=== PATIENT | male | born 1955 | race Caucasian/White ===

== ENCOUNTER 2017-01-18 06:23 | Day surgery (SDC) | payer OTHER ==
[~2017-01-18 06:23] MED LIST: ALPRAZolam 0.25 MG TAB PO PRN; ALPRAZolam 0.5 MG TAB PO PRN; ASPIRIN 325 MG TAB PO STA; ATORVASTATIN 80 MG TAB PO STA; NITROGLYCERIN SL TABS 0.4 MG TAB SUBLINGUAL PRN; SODIUM CHLORIDE 0.9% 1,000 ML in EMPTY BAG 1 BAG IV ONE
[2017-01-18 07:11] LABS: Glucose,Whole Blood 77 mg/dL (75-99)
[2017-01-18] MEDS ORDERED: fentaNYL (PF) 50 MCG/ML 2 ML AMP IV ONE (07:30)
[2017-01-18] MEDS ORDERED: LIDOCAINE 2% INJ 20 MG/ML SQ ONE (07:35)
[2017-01-18] MEDS ORDERED: VERAPAMIL SYRINGE (5 MG/10 ML) INTRAARTER ONE (07:38)
[2017-01-18] MEDS ORDERED: HEPARIN SODIUM 1,000 UNIT/ML VIAL IV ONE (07:39)
[2017-01-18] MEDS ORDERED: BIVALIRUDIN BOLUS 250 MG/50 ML IV ONE (08:09)
[2017-01-18] MEDS ORDERED: BIVALIRUDIN 250 MG in SODIUM CHLORIDE 0.9% 35 ML IV ONE (08:09)
[2017-01-18] MEDS ORDERED: CLOPIDOGREL 75 MG TAB PO ONE (08:12)
[2017-01-18] MEDS: NITROGLYCERIN 1000MCG/10ML SYRINGE INTRACORON ONE ×2 (08:24→08:53)
[2017-01-18] MEDS ORDERED: BIVALIRUDIN 250 MG in SODIUM CHLORIDE 0.9% 50 ML IV ONE (08:45)
[2017-01-18] MEDS ORDERED: IOHEXOL 350 MG/ML 125ML BOTTLE INJ ONE (09:07)
[2017-01-18] MEDS ORDERED: MAG HYDROX/AL HYDROX/SIMETH 30 ML CUP PO PRN (09:26)
[2017-01-18] MEDS ORDERED: ZOLPIDEM 5 MG TAB PO PRN (09:26)
[2017-01-18] MEDS ORDERED: ATROPINE SULFATE 0.1 MG/ML 10ML SYRINGE IV PRN (09:26)
[2017-01-18] MEDS ORDERED: NITROGLYCERIN SL TABS 0.4 MG TAB SUBLINGUAL PRN (09:26)
[2017-01-18] MEDS ORDERED: RX INFO: IV CONTRAST WAS GIVEN 1 EACH MISC MISCELLANE PRN (09:26)
[2017-01-18] MEDS ORDERED: LORazepam 1 MG TAB PO PRN (09:28)
[2017-01-18] MEDS ORDERED: MECLIZINE 25 MG TAB PO PRN (09:28)
[2017-01-18] MEDS ORDERED: SODIUM CHLORIDE 0.9% 1,000 ML IV SCH (09:30)
[2017-01-18 12:11] LABS: Glucose,Whole Blood 117 mg/dL (75-99)
--- NOTE | 2017-01-18 12:14 | CC ---
DATE OF SERVICE: Mr. Paez is a 61-year-old male with a known history of coronary artery disease, status post percutaneous revascularization and coronary artery bypass grafting, who presented with symptoms of chest discomfort reminding him of the symptoms he had prior to his angioplasty. In view of that, recommendation made regarding angioplasty and stenting. The procedure as well as risks and complications were discussed with the patient, who is in full understanding and agreement. PROCEDURE: Patient was brought to the candlemaking laborer in fasting semi-sedated state after receiving fentanyl and Benadryl and reaching moderate conscious sedation state. Using Xylocaine anesthesia and Seldinger technique, a 6 Mauritian was introduced in the left radial artery. Selective right and left coronary angiography was performed using 5 Mauritian 4 bend right and left Gerard catheter. Multiple images of the coronary arteries including hemiaxial views were obtained. Following that, a 5 Mauritian right Gerard catheter was used to cannulate the saphenous vein graft to the right coronary artery. Images of the graft were obtained. Following that, an MARY LOU catheter was used to cannulate the FERGUSON and images of the grafts were obtained. Following that, 6 Mauritian tight pigtail catheter was introduced into the system and an ARMENIAN view of the ascending aorta was performed. Following that, catheter was removed. Images were reviewed. Of note, the patient received 5000 units of intravenous heparin as well as intra-arterial verapamil. FINDINGS: FLUOROSCOPY: There is significant calcification involving all of the coronary arteries. LEFT MAIN: This is a large-size vessel bifurcating into left circumflex, left anterior descending artery. Left main coronary artery has a 70% plaque distally. LEFT ANTERIOR DESCENDING ARTERY: This vessel is totally occluded proximally at the take off of the first septal waist cutter. There is no significant antegrade flow. LEFT CIRCUMFLEX: This is a nondominant vessel, large caliber, giving rise to 2 obtuse marginal branches. The first obtuse marginal branch is larger in caliber, has a proximal long faviola of stenosis up to 99%. Beyond it, after that, the left circumflex gives rise to a second small obtuse marginal branch that has diffuse intimal disease with area of stenosis up to 60% to 70%. RIGHT CORONARY ARTERY: This is a large-size vessel dominant. The right coronary artery in mid segment has an area of 70% stenosis. Distally there is competitive flow in the PLV with minimal flow in the PDA. The prior stented segment in the distal right coronary artery is patent with 30% to 40% stenosis. SAPHENOUS VEIN GRAFT TO THE DISTAL RIGHT CORONARY ARTERY: This graft is patent. The proximal and distal anastomotic sites are patent. There is flow into the PDA and into the PLV. FERGUSON TO THE LAD: The distal anastomotic site is patent. There is flow into the LAD and the diagonal branch brisk without any evidence of high-grade stenosis. There is intimal disease in the LAD. AORTOGRAM: Aortogram was performed in the ARMENIAN view and revealed normal size ascending aorta with normal appearance of tricuspid aortic valve and no significant aortic regurgitation, one saphenous vein graft was noted. CONCLUSION: 1. Severe triple vessel coronary artery disease. 2. Patent left internal mammary artery to left anterior descending artery and patent saphenous vein graft to the right coronary artery. 3. Occluded saphenous vein graft to the obtuse marginal branch. RECOMMENDATION: In view of the findings and symptoms, I recommend proceeding with angioplasty and stenting of the left main and the first obtuse marginal branch. The procedure as well as risks and complications were discussed with the patient, who is in full understanding and agreement. YANY
--- NOTE | 2017-01-18 12:18 | PTCA ---
DATE OF SERVICE: Mr. Paez is a 61-year-old male with a history of coronary artery disease, status post coronary artery bypass grafting who has been complaining of symptoms of chest discomfort, underwent cardiac catheterization, was found to have critical stenosis involving the first obtuse marginal branch and the distal left main. In view of that, recommendation made regarding angioplasty and stenting. The procedures, risks and complications were discussed with the patient who is in full understanding and agreement. PROCEDURE: Attempted cannulating the left main using a 6 Equatorial Guinean FR4 guiding catheter as well a 6 Equatorial Guinean EBU 3.75 were unsuccessful. At that point, a 6 Equatorial [place] XB 3.5 guiding catheter introduced into the system. After cannulating the left main, 0.014 balanced medium weight J-wire was advanced across the lesion, positioned distally, then a 1.5 x 12 mm trek balloon was advanced and 2 inflations at 10 atmospheres were done. Following that, the balloon was removed. Attempt to advance a 2.25 x 23 mm Xience Alpine stent were unsuccessful. That stent was removed and a 2.25 x 12 mm trek balloon was advanced and inflation in the lesion was done at maximum of 12 atmospheres. After removing the balloon, there was inability to advance the stent and after removing the stent, a 2.5 x 12 mm trek balloon was advanced and one inflation at the 12 atmospheres was done. Following that, a guideliner catheter was introduced and with the help of the guideliner, the 2.25 x 23 mm Xience Alpine stent was deployed, post-dilated at 16 atmospheres. Following that, the balloon was removed, and a 2.25 x 12 mm Xience Alpine stent was deployed distal to the first one, was dilated at 12 atmospheres. Following that, an inflation in the overlapped segment at 16 atmospheres was done. Following that, the balloon was removed and a 3.5 x 12 mm Xience Alpine stent was deployed in the distal left main and postdilated at 16 atmospheres. After the last inflation, after appropriate wait, the balloon and guidewire were withdrawn back in the guiding catheter. Images were obtained and repeated. Those images revealed stable, successful stenting. At that point, the guiding catheter, the balloon and the guidewire were removed. The sheath was removed. Hemostasis was obtained with deployment of a TR band. There was no immediate complication. Patient was returned to his room in stable condition. Of note, patient received Angiomax per protocol as well as oral loading dose of clopidogrel. He had no chest discomfort or significant EKG changes with the inflations. The duration of the procedure is 1 hour and 37 minutes. RESULTS: 1. Successful stenting of the first obtuse marginal branch with reduction in stenosis from 99% to 0%. 2. Successful stenting of the distal left main with reduction in stenosis from 70% to 0%. RECOMMENDATION: Patient will be continued on aspirin, Plavix, beta mindy, Chris inhibitor and statin. The importance of dual antiplatelet treatment was discussed with the patient and his family who are in full understanding and agreement. YANY
--- NOTE | 2017-01-18 12:21 | LTR ---
January 18, 2017 RE: JeannineEpifanio Dear Dr. Echeverria; I had the pleasure to perform cardiac catheterization on Mr. Paez at [facility] on January 18, 2017 and a full copy of the procedure note will be forwarded to you. In brief, he was found to have patent FERGUSON to LAD and patent saphenous vein graft to the right coronary artery with occluded saphenous vein graft to the obtuse marginal branch. Underwent successful stenting of that vessel as well as stenting of the distal left main. I am hopeful that this procedure will stabilize his status. Thank you again for allowing me to participate in this patient's care. Please feel to call for any questions. Sincerely yours, NELL EID MD
[2017-01-18 13:39] VITALS: RESP 18; BMI 40.6
[2017-01-18] MEDS: HYDROcodone/APAP 10-325MG 1 EACH TAB PO PRN ×2 (15:09→21:45)
[2017-01-18 16:44] LABS: Glucose,Whole Blood 261 mg/dL (75-99)
[2017-01-18] MEDS ORDERED: INSULIN LISPRO (humaLOG) 300 UNIT/3 ML VIAL SQ ONE (17:57)
[2017-01-18] MEDS: GABAPENTIN 300 MG CAP PO SCH ×2 (18:00→22:29)
[2017-01-18 20:25] LABS: Glucose,Whole Blood 236 mg/dL (75-99)
[2017-01-18] MEDS ORDERED: INSULIN GLARGINE 100 UNIT/ML 10 ML VIAL SQ SCH (21:00)
[2017-01-18] MEDS: METOPROLOL TARTRATE 25 MG TAB PO SCH (21:45)
[2017-01-19 05:59] LABS: Glucose,Whole Blood 108 mg/dL (75-99)
[2017-01-19 06:35] LABS: Anion Gap 8 mmol/L; Blood Urea Nitrogen 11 mg/dL (9-20); Calcium 8.7 mg/dL (8.4-10.2); Carbon Dioxide 27 mmol/L (22-30); Chloride 106 mmol/L (98-107); Glucose 105 mg/dL (74-99); Non-African American GFR(MDRD) >60 (>60 ml/min/1.73 sqM); Sodium 141 mmol/L (137-145)
[2017-01-19] MEDS ORDERED: INSULIN LISPRO (humaLOG) 300 UNIT/3 ML VIAL SQ SCH ×2 (07:30→12:30)
[2017-01-19 08:02] VITALS: BP 143/70; PULSE 68; TEMP 97.2
[2017-01-19] MEDS: GABAPENTIN 300 MG CAP PO SCH (08:12)
[2017-01-19] MEDS: METOPROLOL TARTRATE 25 MG TAB PO SCH (08:13)
[2017-01-19] MEDS: HYDROcodone/APAP 10-325MG 1 EACH TAB PO PRN (08:13)
[2017-01-19] MEDS ORDERED: HYDROCHLOROTHIAZIDE 12.5 MG CAP PO SCH (09:00)
[2017-01-19] MEDS ORDERED: ASPIRIN 81 MG CHEW PO SCH (09:00)
[2017-01-19] MEDS ORDERED: CLOPIDOGREL 75 MG TAB PO SCH (09:00)
[2017-01-19] MEDS ORDERED: LISINOPRIL 10 MG TAB PO SCH (09:00)
--- NOTE | 2017-01-19 09:49 | PN ---
Mr. Paez is a 62-year-old male with known history of coronary artery disease, status post coronary artery bypass grafting, history of hypertension, hyperlipidemia, diabetes mellitus, who presented with symptoms of chest discomfort, underwent cardiac catheterization, was found to have occluded saphenous vein graft to the obtuse marginal branch and significant disease in the obtuse marginal branch, underwent stenting of that vessel and stenting of the distal left main. He is doing well this morning. He is ambulating without difficulty. He feels slightly better. He denies any dizziness, palpitation. He continues on aspirin once a day, Plavix 75 mg daily, Lipitor 40 mg daily, gabapentin, hydrochlorothiazide 12.5 mg daily, insulin, lisinopril 10 mg daily, metoprolol tartrate 25 mg twice a day. PHYSICAL EXAMINATION: Blood pressure 139/60 with a heart rate in the 70s. LUNGS: Clear. HEART: Regular rate and rhythm. S1, S2, no S3, with systolic murmur at the base, ejection type, no diastolic murmur. No rub. ABDOMEN: Soft, obese, nontender. EXTREMITIES: No edema. Left radial pulse intact. EKG shows no acute changes. Lab data revealed BUN and creatinine of 11 and 0.75. Potassium 4.0. IMPRESSION: 1. Status post stenting of the obtuse marginal branch and the distal left main. 2. Status post coronary artery bypass grafting. 3. Hypertension. 4. Hyperlipidemia. 5. Diabetes mellitus. RECOMMENDATION: Patient will be discharged home today and followed as an outpatient.
[2017-01-19] MEDS ORDERED: ATORVASTATIN 40 MG TAB PO SCH (21:00)
== END 2017-01-19 08:35 | disposition home or self-care (01) ==
LOC: CATHCVL 06:23 → 6SEL 09:17 → CATHCVL 01-19 08:35
PROVIDERS: ATTEND Internal Medicine Interventional Cardiology
DX: I25.110 Atherosclerotic heart disease of native coronary artery with unstable angina pectoris (principal); I25.710 Atherosclerosis of autologous vein coronary artery bypass graft(s) with unstable angina pectoris; E78.00 Pure hypercholesterolemia, unspecified; I10 Essential (primary) hypertension; E11.9 Type 2 diabetes mellitus without complications; E78.2 Mixed hyperlipidemia; Z79.02 Long term (current) use of antithrombotics/antiplatelets; Z79.82 Long term (current) use of aspirin; Z79.4 Long term (current) use of insulin; Z79.899 Other long term (current) drug therapy; Z95.1 Presence of aortocoronary bypass graft; Z95.5 Presence of coronary angioplasty implant and graft
CPT/HCPCS: 93455; 93567; 80048; 99152; 99153 ×5; C9600; C1769; C1887 ×4; C1725 ×3; C1874; J2001; J3010; J1644; J0583; Q9967

== ENCOUNTER 2017-10-20 11:16 | Emergency (ER) | payer OTHER ==
--- NOTE | 2017-10-20 12:15 | ED ---
General Adult HPI - General Chief complaint: Extremity Injury, Lower Stated complaint: Knee pain Time Seen by Provider: 10/20/17 11:48 Source: patient, RN notes reviewed Mode of arrival: wheelchair Limitations: physical limitation - History of Present Illness Initial comments: Patient 62-year-old male who presents emergency room today with a chief complaint of injury to the right knee that occurred 2 days ago. He does admit that was severe computer chair was not has Lambert went to turn to get up and feels like his right foot did not move and he twisted the knee feeling a pop. States had some swelling in the area and increased pain. States pain located to the lateral aspect worse with both flexion and extension. States difficult time with ambulation due to pain. Denies any other complaints or symptoms. Patient denies any recent fever, chills, shortness of breath, chest pain, back pain, abdominal pain, nausea or vomiting, numbness or tingling, headaches or visual changes, or any other complaints. - Related Data Home Medications Medication Instructions Recorded Confirmed Aspirin EC [Ecotrin Low Dose] 81 mg PO DAILY 07/06/15 10/20/17 HYDROcodone/APAP 10-325MG [[place] 1 tab PO TID PRN 11/13/15 10/20/17 10-325] Gabapentin [Neurontin] 900 mg PO TID 06/18/16 10/20/17 Hydrochlorothiazide 12.5 mg PO DAILY 06/18/16 10/20/17 Insulin Aspart [NovoLOG Flexpen] See Protocol SQ ACHS 01/16/17 10/20/17 Insulin Glargine,Hum.rec.anlog 70 unit SQ HS 10/20/17 10/20/17 [Lantus Solostar] Previous Rx's Medication Instructions Recorded LORazepam [Ativan] 1 mg PO TID PRN #60 tab 07/02/15 Metoprolol Tartrate [Lopressor] 25 mg PO BID #60 tablet 07/27/15 Lisinopril [Zestril] 10 mg PO DAILY #1 tab 06/20/16 Clopidogrel [Plavix] 75 mg PO DAILY #90 tab 01/19/17 Nitroglycerin Sl Tabs [Nitrostat] 0.4 mg SUBLINGUAL Q5M PRN #25 tab 01/19/17 Allergies Allergy/AdvReac Type Severity Reaction Status Date / Time atorvastatin [From Lipitor] AdvReac SORE Verified 10/20/17 12:17 MUSCLES Review of Systems ROS Statement: Those systems with pertinent positive or pertinent negative responses have been documented in the HPI. ROS Other: All systems not noted in ROS Statement are negative. Past Medical History Past Medical History: Coronary Artery Disease (CAD), Heart Failure, Diabetes Mellitus, Hyperlipidemia, Hypertension, Myocardial Infarction (CA), Osteoarthritis (OA) Additional Past Medical History / Comment(s): syncope. anemia peripheral neuropathy, chronic vertigo, chronic anemia, spinal stenosis, herniated disc, ddd disease in the lower back/chronic back pain, retinal damage to his right eye , reactive thrombocytosis.. Last Myocardial Infarction Date:: 2014 History of Any Multi-Drug Resistant Organisms: None Reported Past Surgical History: Cholecystectomy, Coronary Bypass/CABG, Heart Catheterization With Stent Additional Past Surgical History / Comment(s): PILONDIAL CYSTS REMOVED, LASER EYE SX RT EYE,POST OP PLEURAL EFFUSIONS-THORACENTESIS. quintuple bypass , BILAT CATARACTS REMOVED Past Anesthesia/Blood Transfusion Reactions: No Reported Reaction Additional Past Anesthesia/Blood Transfusion Reaction / Comment(s): CLAUSTERPHOBIA Date of Last Stent Placement:: 2012 Past Psychological History: Depression Smoking Status: Former smoker Past Alcohol Use History: None Reported Past Drug Use History: None Reported - Past Family History Father Family Medical History: Coronary Artery Disease (CAD), Diabetes Mellitus Additional Family Medical History / Comment(s): CABG Mother Family Medical History: Coronary Artery Disease (CAD), Diabetes Mellitus Additional Family Medical History / Comment(s): CABG General Exam - General Exam Comments Initial Comments: General: The patient is awake and alert, in no distress, and does not appear acutely ill. Neck: The neck is supple, there is no tenderness or JVD. Musculoskeletal: Mild swollen to the right knee. Shows limited range of motion with both flexion and extension due to pain. Sensations are intact pulses equal bilaterally 2+. Patient does have tenderness lateral aspect worse with movement. No tenderness to the right hip, right Her ankle. Neurological: A&O x 3. CN II-XII intact, There are no obvious motor or sensory deficits. Coordination appears grossly intact. Speech is normal. Skin: Skin is warm and dry and no rashes or lesions are noted. Psychiatric: Normal mood and affect. Limitations: physical limitation Course Vital Signs 10/20/17 11:32 Temperature 98 F Pulse Rate 56 L Respiratory 16 Rate Blood Pressure 103/52 O2 Sat by Pulse 97 Oximetry Medical Decision Making - Medical Decision Making The patient's x-rays reviewed are negative for any acute fracture dislocation. Results were discussed with the patient. Patient does have moderate effusion. Given knee immobilizer here the emergency room. Does have crutches. Advised follow-up with orthopedics. Advised to continue to ice elevate the affected area. Advised return if any symptoms increase or worsen. Disposition Clinical Impression: Knee injury Disposition: HOME SELF-CARE Condition: Good Instructions: Knee Pain (ED) Additional Instructions: Please continue to ice elevate the affected area at least 4 times a day for 20 minutes at a time. Please use knee immobilizer when up and moving around with crutches with weight. Tolerated. Please follow-up with orthopedics this coming week as discussed. Please return to emergency room for any other concerns. Referrals: Lisandro Echeverria III, MD [Primary Care Provider] - 1-2 days Kane Lewis MD [STAFF PHYSICIAN] - 1-2 days Time of Disposition: 12:59
--- NOTE | 2017-10-20 12:26 | XR ---
EXAMINATION TYPE: XR knee complete RT DATE OF EXAM: 10/20/2017 COMPARISON: NONE HISTORY: Pain felt a pop in knee TECHNIQUE: Three-view right knee FINDINGS: There is narrowing of the medial compartment joint space. Minimal medial femoral condylar s purring is present. Vascular calcification is noted. Anterior superior patellar spurring is present. Small joint effusion may be present. There is an osteophyte medial metaphysis of the distal femur. IMPRESSION: 1. Possible small joint effusion. 2. Mild degenerative changes.
[2017-10-20 13:16] VITALS: BP 122/59; PULSE 66; RESP 18; TEMP 97.6
== END 2017-10-20 13:16 | disposition home or self-care (01) ==
LOC: EC 11:16
DX: S89.91XA Unspecified injury of right lower leg, initial encounter (principal); E11.42 Type 2 diabetes mellitus with diabetic polyneuropathy; I11.0 Hypertensive heart disease with heart failure; I50.9 Heart failure, unspecified; I25.10 Atherosclerotic heart disease of native coronary artery without angina pectoris; I25.2 Old myocardial infarction; Z87.891 Personal history of nicotine dependence; Z79.82 Long term (current) use of aspirin; Z79.4 Long term (current) use of insulin; Z79.899 Other long term (current) drug therapy; Z88.8 Allergy status to other drugs, medicaments and biological substances; X50.1XXA Overexertion from prolonged static or awkward postures, initial encounter; Y92.009 Unspecified place in unspecified non-institutional (private) residence as the place of occurrence of the external cause
CPT/HCPCS: 73562; 99283; L1830 ×2

== ENCOUNTER → 2018-01-12 | Outpatient (CLI) | payer OTHER ==
[2018-01-12 09:54] LABS: HCT 44.7 % (39.0-53.0); HGB 15.7 gm/dL (13.0-17.5); MCH 30.5 pg (25.0-35.0); Mean Platelet Volume 6.2; Platelet Count 252 k/uL (150-450); Poikilocytosis Slight; RBC 5.14 m/uL (4.30-5.90); RDW 13.8 % (11.5-15.5); WBC 8.7 k/uL (3.8-10.6)
[2018-01-12 10:05] LABS: Anion Gap 14 mmol/L; Blood Urea Nitrogen 17 mg/dL (9-20); Carbon Dioxide 29 mmol/L (22-30); Chloride 102 mmol/L (98-107); Potassium 4.3 mmol/L (3.5-5.1); Sodium 145 mmol/L (137-145)
== END | disposition home or self-care (01) ==
LOC: LABPAT 09:18
PROVIDERS: ATTEND Internal Medicine Interventional Cardiology
DX: Z01.812 Encounter for preprocedural laboratory examination (principal); I73.9 Peripheral vascular disease, unspecified
CPT/HCPCS: 36415; 80051; 82565; 84520; 85027

== ENCOUNTER 2018-01-16 07:17 | Day surgery (SDC) | payer OTHER ==
[2018-01-10 15:16] VITALS: BMI 42.0
[~2018-01-16 07:17] MED LIST changes: -ALPRAZolam 0.25 MG TAB PO PRN; -ALPRAZolam 0.5 MG TAB PO PRN; -ASPIRIN 325 MG TAB PO STA; -ATORVASTATIN 80 MG TAB PO STA; -NITROGLYCERIN SL TABS 0.4 MG TAB SUBLINGUAL PRN
[2018-01-16] MEDS ORDERED: ASPIRIN 81 MG ONE (07:45)
[2018-01-16] MEDS ORDERED: ALPRAZolam 0.25 MG TAB ONE (07:45)
[2018-01-16 08:10] LABS: Glucose,Whole Blood 126 mg/dL (75-99)
[2018-01-16 08:12] VITALS: RESP 16; TEMP 98
[2018-01-16] MEDS ORDERED: MIDAZOLAM 2 MG/2 ML VIAL IV ONE ×2 (08:57→08:59)
[2018-01-16] MEDS ORDERED: LIDOCAINE 2% INJ 20 MG/ML SQ ONE (08:59)
[2018-01-16] MEDS ORDERED: IOPAMIDOL-250 50ML BTL INTRAARTER ONE (09:10)
[2018-01-16] MEDS ORDERED: IOPAMIDOL-250 100ML BTL INTRAARTER ONE (09:10)
[2018-01-16] MEDS ORDERED: SODIUM CHLORIDE 0.9% 1,000 ML IV SCH (09:30)
--- NOTE | 2018-01-16 09:51 | AN ---
ANGIOGRAPHY REPORT PERIPHERAL ANGIOGRAM DATE OF SERVICE: 01/16/2018 PERFORMING PHYSICIAN: Emerson Chen MD, check writing machine operator. PROCEDURE PERFORMED: 1. An abdominal aortogram. 2. Bilateral lower extremity runoff. INDICATION: This is a pleasant 63-year-old gentleman with known coronary artery disease who was experiencing bilateral lower extremities intermittent claudication, worse on the right side. He underwent an arterial duplex study and that showed severe bilateral fem-pop disease. He was brought today to undergo a peripheral angiogram. APPROACH: Left common femoral artery. COMPLICATION: None. LEVEL OF SEDATION: Moderate with sedation length of 13 minutes. PROCEDURE DESCRIPTION: After obtaining an informed consent, the patient was brought to cardiac labor contractor. The left common femoral artery was cannulated using micropuncture technique, the micropuncture wire passed easily, then I placed a 5-Kosovan sheath in the left common femoral artery. After that, I did an abdominal aortogram and bilateral lower extremities runoff using 5-Kosovan pigtail catheter which was initially placed at the level of the renal arteries then it was advanced into above the bifurcation of the aorta into right and left common iliac arteries. The procedure was completed without any complication. SELECTIVE PERIPHERAL ANGIOGRAM: 1. The abdominal aorta appeared to be angiographically normal. 2. Common iliac arteries: The right and left common iliac arteries appear to have mild disease only. 3. Internal iliac arteries: The right and left internal iliac arteries are patent. 4. Common femoral arteries: The right common femoral artery appeared to have mild disease only and the left common femoral artery is angiographically normal. 5. Profunda: The right and left profunda are patent. 6. The SFA: The right SFA is occluded from the proximal portion and reconstitutes in the distal portion. The left SFA appeared to be diffusely diseased up to about 70% in the distal portion. 7. Popliteal: The right popliteal appeared to have mild disease only and the left popliteal appeared to have a lesion in the range of 70%. 8. Below the knee: Poorly visualized arteries below the knee. We will angiogram them once we do the peripheral intervention. CONCLUSION: 1. Mild aortoiliac disease. 2. Severe femoral-popliteal disease with occluded right superficial femoral artery and severe disease involving the left superficial femoral artery and left popliteal. 3. Poorly visualized arteries below the knee. POSTPROCEDURE MANAGEMENT: LICENSED DIRECT ENTRY MIDWIFE of bilateral SFA on 2 separate sessions. MMODL / IJN: [id number] /
--- NOTE | 2018-01-16 10:07 | IR ---
EXAMINATION TYPE: IR angio abdominal w runoff DATE OF EXAM: 01/16/2018 COMPARISON: NONE HISTORY: Peripheral vascular occlusive disease. Fluoroscopy was provided to the referring clinician. See dictated report from cardiology.
[2018-01-16 12:34] LABS: Glucose,Whole Blood 225 mg/dL (75-99)
[2018-01-16 16:36] VITALS: BP 108/62; PULSE 62
== END 2018-01-16 15:20 | disposition home or self-care (01) ==
LOC: CATHCVL 07:17
PROVIDERS: ATTEND Internal Medicine Interventional Cardiology
DX: I25.10 Atherosclerotic heart disease of native coronary artery without angina pectoris (principal); I10 Essential (primary) hypertension; Z87.891 Personal history of nicotine dependence; E11.9 Type 2 diabetes mellitus without complications; Z79.4 Long term (current) use of insulin; E78.2 Mixed hyperlipidemia; Z95.1 Presence of aortocoronary bypass graft; Z95.5 Presence of coronary angioplasty implant and graft; Z79.02 Long term (current) use of antithrombotics/antiplatelets; Z79.82 Long term (current) use of aspirin; Z79.899 Other long term (current) drug therapy
CPT/HCPCS: 36200; 75625; 75716; C1894; C1769 ×4; J2001; J2250; Q9966 ×2

== ENCOUNTER 2018-01-22 20:12 | Inpatient (IN) | payer OTHER, MEDICARE ==
[2018-01-22] MEDS ORDERED: SODIUM CHLORIDE 0.9% 1,000 ML IV STA (20:40)
[2018-01-22] MEDS ORDERED: VANCOMYCIN IV PER PHARMACY 1 EACH MISC MISCELLANE PRN (20:42)
[2018-01-22] MEDS ORDERED: VANCOMYCIN 1,000 MG in SODIUM CHLORIDE 0.9% 250 ML IVPB STA (20:42)
[2018-01-22] MEDS ORDERED: AMPICILLIN-SULBACTAM 3 GM in SODIUM CHLORIDE 0.9% 100 ML IVPB STA (20:44)
[2018-01-22] MEDS ORDERED: VANCOMYCIN 2,500 MG in SODIUM CHLORIDE 0.9% 500 ML IVPB STA (20:45)
--- NOTE | 2018-01-22 21:05 | ED ---
General Adult HPI - General Chief complaint: Skin/Abscess/Foreign Body Stated complaint: Male Time Seen by Provider: 01/22/18 20:33 Source: patient Mode of arrival: ambulatory Limitations: no limitations - History of Present Illness Initial comments: This 63-year-old white male presents with a complaint of some drainage from his right scrotum. He states that he had a pea-sized lump on his right inferior scrotum for the past 30 years. He then noticed that it started swelling over the past few days. He noted today that he then developed some bloody purulent drainage from his right scrotal region. He denies any fevers or chills. He is a diabetic. He denies any previous similar type of incidents. There is no other complaints or modifying factors. He denies any abdominal pain. - Related Data Home Medications Medication Instructions Recorded Confirmed Aspirin EC [Ecotrin Low Dose] 81 mg PO DAILY 07/06/15 01/22/18 HYDROcodone/APAP 10-325MG [[place] 1 tab PO TID PRN 11/13/15 01/22/18 10-325] Gabapentin [Neurontin] 900 mg PO TID 06/18/16 01/22/18 Hydrochlorothiazide 12.5 mg PO DAILY 06/18/16 01/22/18 Insulin Aspart [NovoLOG Flexpen] See Protocol SQ ACHS 01/16/17 01/22/18 Insulin Glargine,Hum.rec.anlog 70 unit SQ HS 10/20/17 01/22/18 [Lantus Solostar] Atorvastatin [Lipitor] 40 mg PO HS 01/10/18 01/22/18 Metoprolol Tartrate [Lopressor] 50 mg PO BID 01/10/18 01/22/18 Previous Rx's Medication Instructions Recorded LORazepam [Ativan] 1 mg PO TID PRN #60 tab 07/02/15 Lisinopril [Zestril] 10 mg PO DAILY #1 tab 06/20/16 Clopidogrel [Plavix] 75 mg PO DAILY #90 tab 01/19/17 Nitroglycerin Sl Tabs [Nitrostat] 0.4 mg SUBLINGUAL Q5M PRN #25 tab 01/19/17 Allergies Allergy/AdvReac Type Severity Reaction Status Date / Time No Known Allergies Allergy Verified 01/22/18 20:32 Review of Systems ROS Statement: Those systems with pertinent positive or pertinent negative responses have been documented in the HPI. ROS Other: All systems not noted in ROS Statement are negative. Past Medical History Past Medical History: Coronary Artery Disease (CAD), Chest Pain / Angina, Heart Failure, Diabetes Mellitus, Hyperlipidemia, Hypertension, Myocardial Infarction ([place]), Osteoarthritis (OA) Additional Past Medical History / Comment(s): PAD, hx anemia, peripheral neuropathy, spinal stenosis, herniated disc, ddd 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 quintuple bypass , BILAT CATARACTS REMOVED, 2 HEART STENTS Past Anesthesia/Blood Transfusion Reactions: No Reported Reaction Additional Past Anesthesia/Blood Transfusion Reaction / Comment(s): CLAUSTERPHOBIA Date of Last Stent Placement:: 2014 Past Psychological History: No Psychological Hx Reported Smoking Status: Former smoker - Past Family History Father Family Medical History: Coronary Artery Disease (CAD), Diabetes Mellitus Additional Family Medical History / Comment(s): CABG Mother Family Medical History: Coronary Artery Disease (CAD), Diabetes Mellitus Additional Family Medical History / Comment(s): CABG General Exam - General Exam Comments Initial Comments: GENERAL: The patient is well nourished and well hydrated. VITAL SIGNS: Heart rate, blood pressure, respiratory rate reviewed as recorded in nurse's notes. EYES: Pupils are round and reactive. Extraocular movements are intact. No conjunctival / lid redness or swelling. ENT: No external evidence of injury, swelling, or ecchymosis. Airway is patent. Throat is clear. NECK: Nontender. No swelling or evidence of injury. No subcutaneous emphysema. Trachea is midline. No thyroid mass. HEART: Regular rate and rhythm. Good peripheral pulses. LUNGS/CHEST: Breath sounds clear and equal bilaterally. No rales, rhonchi, or wheezes. No ecchymosis, subcutaneous emphysema, or tenderness. ABDOMEN: Abdomen soft without tenderness. No palpable masses or organomegaly. No peritoneal signs. No abdominal wall swelling or ecchymosis. EXTREMITIES: No extremity tenderness. Normal muscle tone and function. No thoracolumbar tenderness. NEUROLOGIC: Sensation is grossly intact. Cranial nerve exam reveals face is symmetrical, tongue is midline, speech is clear. SKIN: No abrasions or ecchymosis is noted. No induration or masses noted. PSYCHIATRIC: Alert and oriented. Appropriate behavior and judgment. Genitourinary: There is some swelling and tenderness noted to the inferior portion of the right scrotum. There is some bloody drainage also coming from a small lesion in the inferior right scrotum. There is a mildly malodorous scent noted. There is no inguinal lymphadenopathy. There is no tenderness to the testicles. There is no perineal lesions otherwise noted. There is no evidence of [place] gangrene. Limitations: no limitations Course Vital Signs 01/22/18 20:18 Temperature 98.7 F Pulse Rate 84 Respiratory 20 Rate Blood Pressure 156/83 O2 Sat by Pulse 97 Oximetry Medical Decision Making - Medical Decision Making The patient was seen and examined. All diagnostics were reviewed. An IV is started. The patient received some Unasyn as well as some vancomycin. The laboratory is reviewed and does show slight elevation of the lactic acid as well as his glucose. The scrotal ultrasound does not show any evidence of torsion but is not felt as though it adequately does evaluate the entire scrotum or the area where there is swelling noted inferiorly and suspicion of a scrotal abscess. The technology services manager has been paged to discussed reevaluation. Overall, it is felt as though the patient would require admission to the hospital for further inpatient treatment with IV antibiotics and urology consultation. There is currently no evidence of a foreign years gangrene but it is felt as though he is at high risk for additional infection given his diabetic status as well. He is agreeable. The case is discussed with Dr. Strauss and he is agreeable with current treatment plan but would like to change Unasyn to Zosyn. - Lab Data Result diagrams: 01/22/18 20:55 01/22/18 20:55 Lab Results 01/22/18 01/22/18 01/22/18 Range/Units 20:55 20:55 20:55 WBC 10.5 (3.8-10.6) k/uL RBC 4.98 (4.30-5.90) m/uL Hgb 14.8 (13.0-17.5) gm/dL Hct 43.5 (39.0-53.0) % MCV 87.3 (80.0-100.0) fL MCH 29.8 (25.0-35.0) pg MCHC 34.1 (31.0-37.0) g/dL RDW 13.6 (11.5-15.5) % Plt Count 253 (150-450) k/uL Neutrophils % 71 % Lymphocytes % 18 % Monocytes % 6 % Eosinophils % 3 % Basophils % 1 % Neutrophils # 7.5 (1.3-7.7) k/uL Lymphocytes # 1.9 (1.0-4.8) k/uL Monocytes # 0.6 (0-1.0) k/uL Eosinophils # 0.3 (0-0.7) k/uL Basophils # 0.1 (0-0.2) k/uL PT (9.0-12.0) sec INR (<1.2) APTT (22.0-30.0) sec Sodium 141 (137-145) mmol/L Potassium 4.2 (3.5-5.1) mmol/L Chloride 102 (98-107) mmol/L Carbon Dioxide 23 (22-30) mmol/L Anion Gap 16 mmol/L BUN 14 (9-20) mg/dL Creatinine 0.80 (0.66-1.25) mg/dL Est GFR (CKD-EPI)AfAm >90 (>60 ml/min/1.73 sqM) Est GFR (CKD-EPI)NonAf >90 (>60 ml/min/1.73 sqM) Glucose 335 H (74-99) mg/dL Plasma Lactic Acid Rishi 2.6 H* (0.7-2.0) mmol/L Calcium 9.0 (8.4-10.2) mg/dL Total Bilirubin 0.4 (0.2-1.3) mg/dL AST 34 (17-59) U/L ALT 29 (21-72) U/L Alkaline Phosphatase 69 (38-126) U/L Total Protein 7.5 (6.3-8.2) g/dL Albumin 4.1 (3.5-5.0) g/dL Urine Color Urine Appearance (Clear) Urine pH (5.0-8.0) Ur Specific [place] (1.001-1.035) Urine Protein (Negative) Urine Glucose (UA) (Negative) Urine Ketones (Negative) Urine Blood (Negative) Urine Nitrite (Negative) Urine Bilirubin (Negative) Urine Urobilinogen (<2.0) mg/dL Ur Leukocyte Esterase (Negative) 01/22/18 01/22/18 Range/Units 20:55 21:53 WBC (3.8-10.6) k/uL RBC (4.30-5.90) m/uL Hgb (13.0-17.5) gm/dL Hct (39.0-53.0) % MCV (80.0-100.0) fL MCH (25.0-35.0) pg MCHC (31.0-37.0) g/dL RDW (11.5-15.5) % Plt Count (150-450) k/uL Neutrophils % % Lymphocytes % % Monocytes % % Eosinophils % % Basophils % % Neutrophils # (1.3-7.7) k/uL Lymphocytes # (1.0-4.8) k/uL Monocytes # (0-1.0) k/uL Eosinophils # (0-0.7) k/uL Basophils # (0-0.2) k/uL PT 10.2 (9.0-12.0) sec INR 1.0 (<1.2) APTT 20.3 L (22.0-30.0) sec Sodium (137-145) mmol/L Potassium (3.5-5.1) mmol/L Chloride (98-107) mmol/L Carbon Dioxide (22-30) mmol/L Anion Gap mmol/L BUN (9-20) mg/dL Creatinine (0.66-1.25) mg/dL Est GFR (CKD-EPI)AfAm (>60 ml/min/1.73 sqM) Est GFR (CKD-EPI)NonAf (>60 ml/min/1.73 sqM) Glucose (74-99) mg/dL Plasma Lactic Acid Rishi (0.7-2.0) mmol/L Calcium (8.4-10.2) mg/dL Total Bilirubin (0.2-1.3) mg/dL AST (17-59) U/L ALT (21-72) U/L Alkaline Phosphatase (38-126) U/L Total Protein (6.3-8.2) g/dL Albumin (3.5-5.0) g/dL Urine Color Yellow Urine Appearance Clear (Clear) Urine pH 5.5 (5.0-8.0) Ur Specific [place] 1.019 (1.001-1.035) Urine Protein Negative (Negative) Urine Glucose (UA) 4+ H (Negative) Urine Ketones Trace H (Negative) Urine Blood Negative (Negative) Urine Nitrite Negative (Negative) Urine Bilirubin Negative (Negative) Urine Urobilinogen <2.0 (<2.0) mg/dL Ur Leukocyte Esterase Negative (Negative) Disposition Clinical Impression: Scrotal abscess, Hypertension, Diabetes, Hyperglycemia, Elevated lactic acid level Disposition: ADMITTED IP TO THIS [facility] Condition: Fair Is patient prescribed a controlled substance at d/c from ED?: No Time of Disposition: 22: Decision Date: 01/22/18 Decision Time: 22:21
[2018-01-22 21:15] LABS: Basophils # (A) 0.1 k/uL (0-0.2); Basophils % (A) 1 %; Eosinophils # (A) 0.3 k/uL (0-0.7); Eosinophils % (A) 3 %; HCT 43.5 % (39.0-53.0); HGB 14.8 gm/dL (13.0-17.5); Lymphocytes # (A) 1.9 k/uL (1.0-4.8); Lymphocytes % (A) 18 %; MCH 29.8 pg (25.0-35.0); MCHC 34.1 g/dL (31.0-37.0); MCV 87.3 fL (80.0-100.0); Mean Platelet Volume 7.1; Monocytes # (A) 0.6 k/uL (0-1.0); Monocytes % (A) 6 %; Neutrophils # (A) 7.5 k/uL (1.3-7.7); Neutrophils % (A) 71 %; Platelet Count 253 k/uL (150-450); RBC 4.98 m/uL (4.30-5.90); RDW 13.6 % (11.5-15.5); WBC 10.5 k/uL (3.8-10.6)
[2018-01-22 21:23] LABS: ALT 29 U/L (21-72); AST 34 U/L (17-59); Albumin 4.1 g/dL (3.5-5.0); Alkaline Phosphatase 69 U/L (38-126); Anion Gap 16 mmol/L; Blood Urea Nitrogen 14 mg/dL (9-20); Carbon Dioxide 23 mmol/L (22-30); Chloride 102 mmol/L (98-107); Glucose 335 mg/dL (74-99); Potassium 4.2 mmol/L (3.5-5.1); Sodium 141 mmol/L (137-145); Total Bilirubin 0.4 mg/dL (0.2-1.3); Total Protein 7.5 g/dL (6.3-8.2)
[2018-01-22 21:27] LABS: Prothrombin Time 10.2 sec (9.0-12.0)
[2018-01-22 21:30] LABS: Partial Thromboplastin Time 20.3 sec (22.0-30.0)
--- NOTE | 2018-01-22 22:08 | US ---
EXAMINATION TYPE: US scrotum with doppler. Grayscale and color Doppler Duplex imaging performed of t he scrotum. DATE OF EXAM: 01/22/2018 COMPARISON: NONE CLINICAL HISTORY: Pain. Right side pain and swelling EXAM MEASUREMENTS: TESTICLES: Right Testicle: 5.2 x 2.5 x 3.7 cm Left Testicle: 5.1 x 2.8 x 4.5 cm EPIDIDYMIS HEAD: Right Epididymis: .9 x .3 x .8 cm Left Epididymis: 1.2 x .8 x 1.3 cm Doppler performed to assess for testicular vascularity; good bilateral color flow and waveforms are s een. Presence of hydroceles: No Presence of varicoceles: No Normal color doppler flow seen bilaterally. Left epididymal cyst seen = .5cm. IMPRESSION: NO ACUTE PROCESS; NEGATIVE FOR TESTICULAR TORSION.
[2018-01-22 22:12] LABS: Appearance,Urine Clear (Clear); Bilirubin,Urine Negative (Negative); Blood,Urine Negative (Negative); Color,Urine Yellow; Glucose,Urine (UA) 4+ (Negative); Ketones,Urine Trace (Negative); Leukocyte Esterase,Urine Negative (Negative); Nitrite,Urine Negative (Negative); PH, Urine 5.5 (5.0-8.0); Protein,Urine Negative (Negative); Specific Gravity,Urine 1.019 (1.001-1.035); Urobilinogen,Urine <2.0 mg/dL (<2.0)
[2018-01-22] MEDS ORDERED: ONDANSETRON 4 MG/2 ML VIAL IVP PRN (22:22)
[2018-01-22] MEDS ORDERED: NALOXONE 0.4 MG/ML 1 ML VIAL IV PRN (22:22)
[2018-01-22] MEDS ORDERED: IBUPROFEN 400 MG TAB PO PRN (22:22)
[2018-01-22] MEDS ORDERED: ACETAMINOPHEN TAB 325 MG TAB PO PRN (22:22)
[2018-01-22] MEDS ORDERED: MORPHINE SULFATE 4 MG/ML SYRINGE IV STA (22:22)
[2018-01-22] MEDS ORDERED: MORPHINE SULFATE 4 MG/ML SYRINGE IV PRN (22:22)
[2018-01-22] MEDS ORDERED: LORazepam 1 MG TAB PO PRN (22:26)
[2018-01-22] MEDS ORDERED: NITROGLYCERIN SL TABS 0.4 MG TAB SUBLINGUAL PRN (22:26)
[2018-01-22] MEDS ORDERED: ATORVASTATIN 40 MG TAB PO STA (22:39)
[2018-01-22] MEDS ORDERED: METOPROLOL TARTRATE 50 MG TAB PO STA (22:39)
[2018-01-22 23:43] LABS: Glucose,Whole Blood 303 mg/dL (75-99)
[2018-01-23] MEDS: INSULIN DETEMIR 100 UNIT/ML 10 ML VIAL SQ SCH ×2 (00:35→21:24)
[2018-01-23 00:52] VITALS: BMI 41.6
[2018-01-23] MEDS ORDERED: INSULIN ASPART 100 UNIT/ML 1 ML 10 ML VIAL SQ STA (01:15)
[2018-01-23] MEDS: GABAPENTIN 300 MG CAP PO SCH ×4 (01:32→21:25)
[2018-01-23 03:41] LABS: Glucose,Whole Blood 224 mg/dL (75-99)
--- NOTE | 2018-01-23 03:45 | HP ---
HISTORY AND PHYSICAL DATE OF SERVICE: January 22, 2018 CHIEF COMPLAINTS: Pain and swelling and drainage from the scrotum. HISTORY OF PRESENT ILLNESS: This 63-year-old gentleman with a past history of CAD, diabetes type 2, CHF, hypertension, hyperlipidemia, being followed by Dr. Echeverria in the outpatient setting is complaining of scrotal drainage for the last several days. The patient reports that the patient had a pea-sized lump in the scrotum for 30 years, which started draining for the last week or so. Because of increasing pain and swelling patient came to [facility] Emergency Room and was admitted for further evaluation and treatment. The patient had somewhat bloody drainage of the scrotum and the patient admitted for further evaluation. IV antibiotics initiated. Pressure is also elevated. Of note the patient also being evaluated by Dr. Chen for peripheral vascular disease and further evaluation including PTBS apparently being planned at this time. Records are not available at this time. There is no history of any chest pain, palpitations, headache loss of consciousness. No history of fever, rigors, chills. PAST MEDICAL HISTORY: History of diabetes, hypertension, hyperlipidemia, history of myocardial infarction, history of coronary artery disease. MEDICATIONS: Prior to admission include home medications are: 1. Nitrostat 0.4 mg p.o. p.r.n. 2. Lopressor 50 mg p.o. b.i.d. 3. Zestril 10 mg p.o. daily. 4. Ativan 1 mg t.i.d. p.r.n. 5. NovoLog FlexPen, Lantus 70 units subcu q.h.s. 6. Hydrochlorothiazide 12.5 mg p.o. daily. 7. [place] 10 mg t.i.d. p.r.n. 8. Neurontin 900 mg p.o. t.i.d. 9. Plavix 75 mg p.o. daily. 10.Lipitor 40 mg q.h.s. 11.Ecotrin 81 mg p.o. daily. ALLERGIES: None. FAMILY HISTORY: History of CAD, diabetes and CABG. SOCIAL HISTORY: Previous history of smoking. No history of current smoking or alcohol intake. REVIEW OF SYSTEMS: ENT: No diminished vision or hearing. Cardio system: No angina. Respirations: No cough or hemoptysis. : As mentioned earlier. GI: As mentioned earlier. Central nervous system: No numbness or weakness. Allergy/Immunology: No asthma or hayfever. MUSCULOSKELETAL: As mentioned earlier. HEMATOLOGY/ONCOLOGY: No history of anemia. Endocrine: Diabetes mellitus. Constitutional: As mentioned earlier. RHEUMATOLOGY: Negative. Dermatology: Negative. PSYCHIATRY: As mentioned earlier. PHYSICAL EXAM: Patient is alert, oriented x3. blood pressure 156/80, respiration 20, temperature 98.7, pulse ox 97% on room air. HEENT: Conjunctivae normal. Oral mucosa moist. Neck is no jugular venous distention. No lymph node enlargement. No carotid bruit. Cardiovascular: S1-S2 muffled. No S3, no S4. Respiratory: Breath sounds diminished in the bases. No rhonchi. No crackles. ABDOMEN: Soft, nontender. No mass palpable. Legs no edema. No swelling. NERVOUS SYSTEM: Higher functions as mentioned earlier. Moves all 4 limbs. No focal motor or sensory deficits. Lymphatics: No lymph nodes palpable in the neck, axillae or groin. Examination of the scrotum probably abscess and draining abscess. Some tenderness and swelling also and erythema present. Skin as mentioned earlier. LABS: WBC 10.9, hemoglobin is 14.8. Glucose 335 at 303. Plasma lactic acid 2.6. ASSESSMENT: 1. Acute scrotal abscess with possible sepsis. 2. Diabetes type 2. 3. History of coronary artery disease. 4. Peripheral vascular disease. 5. Congestive heart failure. 6. Hypertension. 7. Hyperlipidemia. 8. History of myocardial infarction. 9. History of degenerative joint disease. 10.History of peripheral neuropathy. 11.History of spinal stenosis. 12.History of degenerative joint disease. 13.Cholecystectomy. 14.History of coronary artery disease, coronary artery bypass grafting stent. 15.History of pilonidal sinus. 16.History of claustrophobia. 17.Remote history of nicotine dependence. RECOMMENDATIONS AND DISCUSSION: In this 63-year-old gentleman who presented with multiple complex medical issues, we will monitor the patient closely. Continue the current medications, continue current management and symptomatic treatment. We will initiate broad-spectrum IV antibiotics. Obtain the cultures. The patient is started on Zosyn and Vanco. I would also recommend infectious disease evaluation. Urology has been consulted already. Otherwise, we will follow the patient closely and repeat labs also been ordered. Home medications. DVT prophylaxis. Incentive spirometry. Guarded prognosis because of multiple complex medical issues. Further recommendations to follow. A copy being forwarded to Dr. Echeverria who is the primary physician. The patient apparently is taking high dose of insulin for coverage purposes, will confirm. MMODL / IJN: [id number] /
[2018-01-23] MEDS: HYDROcodone/APAP 10-325MG 1 EACH TAB PO PRN ×2 (04:07→17:02)
[2018-01-23 06:56] LABS: Glucose,Whole Blood 213 mg/dL (75-99)
--- NOTE | 2018-01-23 06:56 | P.GSCN ---
History of Present Illness Consult date: 01/23/18 History of present illness: The patient is a 63-year-old gentleman who for several days as had scrotal swelling and pain. He presented emergency room yesterday after spontaneous drainage of the scrotum. It was felt that a scrotal abscesses admitted for this reason. We are asked see the patient. These had a subcutaneous nodule for many years and in the last week at [facility]. He had a scrotal ultrasound identified a subcutaneous abscess. He has not had previous scrotal problems. Review of Systems - Constitutional Reports as per HPI - Cardiovascular Cardiovascular Comment(s): Impotence - Genitourinary Reports as per HPI Past Medical History Past Medical History: Coronary Artery Disease (CAD), Chest Pain / Angina, Heart Failure, Diabetes Mellitus, Hyperlipidemia, Hypertension, Myocardial Infarction ([place]), Osteoarthritis (OA) Additional Past Medical History / Comment(s): PAD, hx anemia, peripheral neuropathy, spinal stenosis, herniated disc, ddd 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 quintuple bypass , BILAT CATARACTS REMOVED, 2 HEART STENTS Past Anesthesia/Blood Transfusion Reactions: No Reported Reaction Additional Past Anesthesia/Blood Transfusion Reaction / Comm: CLAUSTERPHOBIA Date of Last Stent Placement:: 2014 Past Psychological History: No Psychological Hx Reported Additional Psychological History / Comment(s): . Smoking Status: Former smoker Past Alcohol Use History: Occasional Additional Past Alcohol Use History / Comment(s): STARTED SMOKING CIG AT AGE 15 1PPD,QUIT 2011 Past Drug Use History: None Reported - Past Family History Father Family Medical History: Coronary Artery Disease (CAD), Diabetes Mellitus Additional Family Medical History / Comment(s): CABG Mother Family Medical History: Coronary Artery Disease (CAD), Diabetes Mellitus Additional Family Medical History / Comment(s): CABG Medications and Allergies Home Medications Medication Instructions Recorded Confirmed Type LORazepam [Ativan] 1 mg PO TID PRN #60 tab 07/02/15 01/22/18 Rx Aspirin EC [Ecotrin Low Dose] 81 mg PO DAILY 07/06/15 01/22/18 History HYDROcodone/APAP 10-325MG [[place] 1 tab PO TID PRN 11/13/15 01/22/18 History 10-325] Gabapentin [Neurontin] 900 mg PO TID 06/18/16 01/22/18 History Hydrochlorothiazide 12.5 mg PO DAILY 06/18/16 01/22/18 History Lisinopril [Zestril] 10 mg PO DAILY #1 tab 06/20/16 01/22/18 Rx Insulin Aspart [NovoLOG Flexpen] See Protocol SQ ACHS 01/16/17 01/22/18 History Clopidogrel [Plavix] 75 mg PO DAILY #90 tab 01/19/17 01/22/18 Rx Nitroglycerin Sl Tabs [Nitrostat] 0.4 mg SUBLINGUAL Q5M PRN #25 tab 01/19/17 Rx Insulin Glargine,Hum.rec.anlog 70 unit SQ HS 10/20/17 01/22/18 History [Lantus Solostar] Atorvastatin [Lipitor] 40 mg PO HS 01/10/18 01/22/18 History Metoprolol Tartrate [Lopressor] 50 mg PO BID 01/10/18 01/22/18 History Allergies Allergy/AdvReac Type Severity Reaction Status Date / Time No Known Allergies Allergy Verified 01/22/18 20:32 Surgical - Exam Vital Signs Temp Pulse Resp BP Pulse Ox 98.7 F 84 20 156/83 97 01/22/18 20:18 01/22/18 20:18 01/22/18 20:18 01/22/18 20:18 01/22/18 20:18 - General well developed, well nourished, moderate distress - Eyes PERRL - ENT no hearing loss - Neck trachea midline - Respiratory normal expansion, normal respiratory effort - Abdomen Abdomen: soft, non tender - Genitourinary The right posterior scrotum has a draining sinus with a minimal amount of fluctuance. It is about a centimeter in diameter. His expressed and a small amount of pus drained. I then cultured with a culture at tube and place a Q- tip in it to open up the the cavity. normal penis with no external lesions, testicles present - Neurologic normal coordination, normal sensation - Musculoskeletal normal posture - Psychiatric oriented to time, oriented to person, oriented to place, speech is normal, memory intact Results - Labs 01/22/18 20:55 01/22/18 20:55 Abnormal Lab Results - Last 24 Hours (Table) 01/22/18 01/22/18 01/22/18 Range/Units 20:55 20:55 20:55 APTT 20.3 L (22.0-30.0) sec Glucose 335 H (74-99) mg/dL POC Glucose (mg/dL) (75-99) mg/dL Plasma Lactic Acid Rishi 2.6 H* (0.7-2.0) mmol/L Urine Glucose (UA) (Negative) Urine Ketones (Negative) 01/22/18 01/22/18 01/23/18 Range/Units 21:53 23:41 03:39 APTT (22.0-30.0) sec Glucose (74-99) mg/dL POC Glucose (mg/dL) 303 H 224 H (75-99) mg/dL Plasma Lactic Acid Rishi (0.7-2.0) mmol/L Urine Glucose (UA) 4+ H (Negative) Urine Ketones Trace H (Negative) Diabetes panel 01/22/18 Range/Units 20:55 Sodium 141 (137-145) mmol/L Potassium 4.2 (3.5-5.1) mmol/L Chloride 102 (98-107) mmol/L Carbon Dioxide 23 (22-30) mmol/L BUN 14 (9-20) mg/dL Creatinine 0.80 (0.66-1.25) mg/dL Glucose 335 H (74-99) mg/dL Calcium 9.0 (8.4-10.2) mg/dL AST 34 (17-59) U/L ALT 29 (21-72) U/L Alkaline Phosphatase 69 (38-126) U/L Total Protein 7.5 (6.3-8.2) g/dL Albumin 4.1 (3.5-5.0) g/dL Calcium panel 01/22/18 Range/Units 20:55 Calcium 9.0 (8.4-10.2) mg/dL Albumin 4.1 (3.5-5.0) g/dL Pituitary panel 01/22/18 Range/Units 20:55 Sodium 141 (137-145) mmol/L Potassium 4.2 (3.5-5.1) mmol/L Chloride 102 (98-107) mmol/L Carbon Dioxide 23 (22-30) mmol/L BUN 14 (9-20) mg/dL Creatinine 0.80 (0.66-1.25) mg/dL Glucose 335 H (74-99) mg/dL Calcium 9.0 (8.4-10.2) mg/dL Adrenal panel 01/22/18 Range/Units 20:55 Sodium 141 (137-145) mmol/L Potassium 4.2 (3.5-5.1) mmol/L Chloride 102 (98-107) mmol/L Carbon Dioxide 23 (22-30) mmol/L BUN 14 (9-20) mg/dL Creatinine 0.80 (0.66-1.25) mg/dL Glucose 335 H (74-99) mg/dL Calcium 9.0 (8.4-10.2) mg/dL Total Bilirubin 0.4 (0.2-1.3) mg/dL AST 34 (17-59) U/L ALT 29 (21-72) U/L Alkaline Phosphatase 69 (38-126) U/L Total Protein 7.5 (6.3-8.2) g/dL Albumin 4.1 (3.5-5.0) g/dL - Imaging US - pelvic: report reviewed, image reviewed Assessment and Plan Assessment: impression: Scrotal abscess, drained diabetes, coronary disease, medical problems Recommendations: The lesion has been drained. He should be placed in a sitz bath twice a day. Cultures have been obtained. He is on IV antibiotics pending the results. Nothing further urologic will probably need to be done at this point in time.
[2018-01-23] MEDS ORDERED: INSULIN ASPART 100 UNIT/ML 1 ML 10 ML VIAL SQ SCH ×2 (07:30)
[2018-01-23] MEDS: ASPIRIN 81 MG PO SCH (07:41)
[2018-01-23] MEDS: CLOPIDOGREL 75 MG TAB PO SCH (07:41)
[2018-01-23] MEDS: VANCOMYCIN 2,250 MG in SODIUM CHLORIDE 0.9% 500 ML IVPB SCH ×2 (07:41→21:24)
[2018-01-23] MEDS: ENOXAPARIN 40 MG/0.4 ML SYRINGE SQ SCH (07:42)
[2018-01-23] MEDS: LISINOPRIL 10 MG TAB PO SCH (07:42)
[2018-01-23] MEDS: METOPROLOL TARTRATE 50 MG TAB PO SCH ×2 (07:42→20:28)
[2018-01-23] MEDS: PANTOPRAZOLE 40 MG/10 ML VIAL IV SCH (07:43)
[2018-01-23 07:45] LABS: Basophils # (A) 0.1 k/uL (0-0.2); Basophils % (A) 1 %; Eosinophils # (A) 0.3 k/uL (0-0.7); Eosinophils % (A) 4 %; HCT 41.5 % (39.0-53.0); Lymphocytes # (A) 1.8 k/uL (1.0-4.8); Lymphocytes % (A) 25 %; MCH 30.2 pg (25.0-35.0); MCHC 33.7 g/dL (31.0-37.0); MCV 89.5 fL (80.0-100.0); Mean Platelet Volume 6.5; Monocytes # (A) 0.5 k/uL (0-1.0); Monocytes % (A) 7 %; Neutrophils # (A) 4.4 k/uL (1.3-7.7); Neutrophils % (A) 61 %; Platelet Count 242 k/uL (150-450); RBC 4.63 m/uL (4.30-5.90); RDW 13.7 % (11.5-15.5); WBC 7.3 k/uL (3.8-10.6)
[2018-01-23 07:53] LABS: Anion Gap 10 mmol/L; Blood Urea Nitrogen 13 mg/dL (9-20); Calcium 8.5 mg/dL (8.4-10.2); Carbon Dioxide 28 mmol/L (22-30); Chloride 103 mmol/L (98-107); Glucose 230 mg/dL (74-99); Potassium 3.8 mmol/L (3.5-5.1); Sodium 141 mmol/L (137-145)
[2018-01-23] MEDS ORDERED: HYDROCHLOROTHIAZIDE 12.5 MG CAP PO SCH (09:00)
--- NOTE | 2018-01-23 09:14 | P.CONS ---
History of Present Illness - Reason for Consult Consult date: 01/23/18 Sepsis - History of Present Illness This is a 63-year-old male patient gives history of having a ball bearing size lump and his right scrotum that has been there for 25-30 years did not give him any trouble. He noticed that he had increased swelling to the same area that became the size of a large egg. Patient states he went to the bathroom yesterday to check this area and he felt the area and hand came back with bloody purulent drainage and he [facility] and was told to have it checked in the next 24 hours.. He denies having any fever or chills, loss of appetite, rigors or muscle aches. He does not divulge his blood sugar readings at home. He came into the [facility] emergency center for evaluation. He did present with a blood sugar of 335. He does not know his hemoglobin A1c. Patient has been afebrile with white count of 10.5. His lactic acid was 2.6 and repeat 1.8. Ultrasound shows complex subcutaneous abscess, avascular. No testicular torsion. He was given a 1 L of fluid, Unasyn and vancomycin and admitted to the [facility] floor. He is currently on vancomycin and Zosyn. His urinalysis was clear with glucose 4+ ketones trace. Patient has been seen by Dr. Trimble and I&D was done. He has recommended sitz bath twice daily. Wound cultures are in progress. Patient states his pain as a #67. And he feels there is some improvement in the swelling since the I&D. Patient has extensive coronary artery disease and vascular disease. Last week he underwent abdominal aortogram with bilateral lower extremity runoff. He states he wasn't Dr. Chen' s office yesterday to get the results and was told he had 100% blockage on the right and 78% on the left and is expecting a phone call to set up further procedure. Patient has had one abscess that required I&D done by Dr. Echeverria last year to the right occipital area. Patient denies any history of MRSA. Review of Systems All systems: negative Constitutional: Denies anorexia, Denies chills, Denies fever, Denies poor appetite, Denies weight loss Eyes: denies blurred vision, denies pain Ears, nose, mouth and throat: Denies dental pain, Denies headache, Denies mouth pain, Denies sore throat, Denies vertigo Cardiovascular: Denies chest pain, Denies edema, Denies leg edema, Denies lightheadedness, Denies shortness of breath, Denies syncope Respiratory: Denies cough, Denies excessive sputum, Denies hemoptysis, Denies home oxygen, Denies wheezing Gastrointestinal: Denies abdominal pain, Denies diarrhea, Denies loss of appetite, Denies nausea, Denies vomiting Genitourinary: Reports testicular lump, Reports testicular pain, Denies dysuria , Denies incontinence Musculoskeletal: Denies myalgias Integumentary: Reports wounds, Denies pruritus, Denies rash Neurological: Denies numbness, Denies weakness Psychiatric: Denies anxiety, Denies depression Endocrine: Denies fatigue, Denies weight change Past Medical History Past Medical History: Coronary Artery Disease (CAD), Chest Pain / Angina, Heart Failure, Diabetes Mellitus, Hyperlipidemia, Hypertension, Myocardial Infarction (NE), Osteoarthritis (OA) Additional Past Medical History / Comment(s): PAD, hx anemia, peripheral neuropathy, spinal stenosis, herniated disc, ddd 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 quintuple bypass , BILAT CATARACTS REMOVED, 2 HEART STENTS Past Anesthesia/Blood Transfusion Reactions: No Reported Reaction Additional Past Anesthesia/Blood Transfusion Reaction / Comm: CLAUSTERPHOBIA Date of Last Stent Placement:: 2014 Past Psychological History: No Psychological Hx Reported Additional Psychological History / Comment(s): . Smoking Status: Former smoker Past Alcohol Use History: Occasional Additional Past Alcohol Use History / Comment(s): STARTED SMOKING CIG AT AGE 15 1PPD,QUIT 2011. He denies street drug or alcohol use. He is retired since 2002. 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 He served in the [employer]. [facility]. No animals in the home. He does live alone and in 2015. Past Drug Use History: None Reported - Past Family History Father Family Medical History: Coronary Artery Disease (CAD), Diabetes Mellitus Additional Family Medical History / Comment(s): CABG Mother Family Medical History: Coronary Artery Disease (CAD), Diabetes Mellitus Additional Family Medical History / Comment(s): CABG Medications and Allergies Home Medications Medication Instructions Recorded Confirmed Type LORazepam [Ativan] 1 mg PO TID PRN #60 tab 07/02/15 01/22/18 Rx Aspirin EC [Ecotrin Low Dose] 81 mg PO DAILY 07/06/15 01/22/18 History HYDROcodone/APAP 10-325MG [[place] 1 tab PO TID PRN 11/13/15 01/22/18 History 10-325] Gabapentin [Neurontin] 900 mg PO TID 06/18/16 01/22/18 History Hydrochlorothiazide 12.5 mg PO DAILY 06/18/16 01/22/18 History Lisinopril [Zestril] 10 mg PO DAILY #1 tab 06/20/16 01/22/18 Rx Insulin Aspart [NovoLOG Flexpen] See Protocol SQ ACHS 01/16/17 01/22/18 History Clopidogrel [Plavix] 75 mg PO DAILY #90 tab 01/19/17 01/22/18 Rx Nitroglycerin Sl Tabs [Nitrostat] 0.4 mg SUBLINGUAL Q5M PRN #25 tab 01/19/17 Rx Insulin Glargine,Hum.rec.anlog 70 unit SQ HS 10/20/17 01/22/18 History [Lantus Solostar] Atorvastatin [Lipitor] 40 mg PO HS 01/10/18 01/22/18 History Metoprolol Tartrate [Lopressor] 50 mg PO BID 01/10/18 01/22/18 History Allergies Allergy/AdvReac Type Severity Reaction Status Date / Time No Known Allergies Allergy Verified 01/22/18 20:32 Physical Exam Vitals: Vital Signs Temp Pulse Pulse Pulse Resp BP BP 01/23/18 06:55 97.8 F 69 16 164/71 01/23/18 02:32 16 01/23/18 00:00 98.1 F 98 20 172/80 01/22/18 22:44 98.1 F 93 16 169/93 01/22/18 20:18 98.7 F 84 20 156/83 Pulse Ox 01/23/18 06:55 95 01/23/18 02:32 01/23/18 00:00 97 01/22/18 22:44 95 01/22/18 20:18 97 Intake and Output 01/22/18 01/23/18 01/23/18 22:59 06:59 14:59 Other: Voiding Method Toilet Urinal # Voids 1 Weight 139.253 kg 107 kg Gen: This is an obese 63-year-old male. He is sitting up in bed and appears to be comfortable and in no acute distress. HEENT: Head is atraumatic, normocephalic. Pupils equal, round. Sclerae is anicteric. Conjunctiva pink. Mucous membranes of the mouth are moist. Dentition is in good order. No thrush noted. NECK: Short and thick. Supple. No JVD. No lymphadenopathy. No thyromegaly. LUNGS: Clear to auscultation. No wheezes or rhonchi. No intercostal retractions. HEART: Regular rate and rhythm. Systolic murmur. ABDOMEN: Obese. Soft. Bowel sounds are present. No masses. No tenderness. GENITAL: Exam deferred to Dr. Garcia. EXTREMITIES: No pedal edema. No calf tenderness. Dorsalis pedis is 1+ bilaterally. NEUROLOGICAL: Patient is awake, alert and oriented x3. Cranial nerves 2 through 12 are grossly intact. Results Results: Laboratory Results WBC 7.3 k/uL (3.8-10.6) 01/23/18 07:09 RBC 4.63 m/uL (4.30-5.90) 01/23/18 07:09 Hgb 14.0 gm/dL (13.0-17.5) 01/23/18 07:09 Hct 41.5 % (39.0-53.0) 01/23/18 07:09 MCV 89.5 fL (80.0-100.0) 01/23/18 07:09 MCH 30.2 pg (25.0-35.0) 01/23/18 07:09 MCHC 33.7 g/dL (31.0-37.0) 01/23/18 07:09 RDW 13.7 % (11.5-15.5) 01/23/18 07:09 Plt Count 242 k/uL (150-450) 01/23/18 07:09 Neutrophils % 61 % 01/23/18 07:09 Lymphocytes % 25 % 01/23/18 07:09 Monocytes % 7 % 01/23/18 07:09 Eosinophils % 4 % 01/23/18 07:09 Basophils % 1 % 01/23/18 07:09 Neutrophils # 4.4 k/uL (1.3-7.7) 01/23/18 07:09 Lymphocytes # 1.8 k/uL (1.0-4.8) 01/23/18 07:09 Monocytes # 0.5 k/uL (0-1.0) 01/23/18 07:09 Eosinophils # 0.3 k/uL (0-0.7) 01/23/18 07:09 Basophils # 0.1 k/uL (0-0.2) 01/23/18 07:09 PT 10.2 sec (9.0-12.0) 01/22/18 20:55 INR 1.0 (<1.2) 01/22/18 20:55 APTT 20.3 sec (22.0-30.0) L 01/22/18 20:55 Sodium 141 mmol/L (137-145) 01/23/18 07:09 Potassium 3.8 mmol/L (3.5-5.1) 01/23/18 07:09 Chloride 103 mmol/L (98-107) 01/23/18 07:09 Carbon Dioxide 28 mmol/L (22-30) 01/23/18 07:09 Anion Gap 10 mmol/L 01/23/18 07:09 BUN 13 mg/dL (9-20) 01/23/18 07:09 Creatinine 0.62 mg/dL (0.66-1.25) L 01/23/18 07:09 Est GFR (CKD-EPI)AfAm >90 (>60 ml/min/1.73 sqM) 01/23/18 07:09 Est GFR (CKD-EPI)NonAf >90 (>60 ml/min/1.73 sqM) 01/23/18 07:09 Glucose 230 mg/dL (74-99) H 01/23/18 07:09 POC Glucose (mg/dL) 213 mg/dL (75-99) H 01/23/18 06:54 POC Glu Character Impersonator ID Rosie Ruby 01/23/18 06:54 Lactic Ac Sepsis Rflx Y 01/22/18 21:24 Plasma Lactic Acid Rishi 1.8 mmol/L (0.7-2.0) 01/23/18 00:44 Calcium 8.5 mg/dL (8.4-10.2) 01/23/18 07:09 Total Bilirubin 0.4 mg/dL (0.2-1.3) 01/22/18 20:55 AST 34 U/L (17-59) 01/22/18 20:55 ALT 29 U/L (21-72) 01/22/18 20:55 Alkaline Phosphatase 69 U/L (38-126) 01/22/18 20:55 Total Protein 7.5 g/dL (6.3-8.2) 01/22/18 20:55 Albumin 4.1 g/dL (3.5-5.0) 01/22/18 20:55 Urine Color Yellow 01/22/18 21:53 Urine Appearance Clear (Clear) 01/22/18 21:53 Urine pH 5.5 (5.0-8.0) 01/22/18 21:53 Ur Specific [place] 1.019 (1.001-1.035) 01/22/18 21:53 Urine Protein Negative (Negative) 01/22/18 21:53 Urine Glucose (UA) 4+ (Negative) H 01/22/18 21:53 Urine Ketones Trace (Negative) H 01/22/18 21:53 Urine Blood Negative (Negative) 01/22/18 21:53 Urine Nitrite Negative (Negative) 01/22/18 21:53 Urine Bilirubin Negative (Negative) 01/22/18 21:53 Urine Urobilinogen <2.0 mg/dL (<2.0) 01/22/18 21:53 Ur Leukocyte Esterase Negative (Negative) 01/22/18 21:53 CBC & Chem 7: 01/23/18 07:09 01/23/18 07:09 Labs: Abnormal Lab Results - Last 24 Hours (Table) 01/22/18 01/22/18 01/22/18 Range/Units 20:55 20:55 20:55 APTT 20.3 L (22.0-30.0) sec Creatinine (0.66-1.25) mg/dL Glucose 335 H (74-99) mg/dL POC Glucose (mg/dL) (75-99) mg/dL Plasma Lactic Acid Rishi 2.6 H* (0.7-2.0) mmol/L Urine Glucose (UA) (Negative) Urine Ketones (Negative) 01/22/18 01/22/18 01/23/18 Range/Units 21:53 23:41 03:39 APTT (22.0-30.0) sec Creatinine (0.66-1.25) mg/dL Glucose (74-99) mg/dL POC Glucose (mg/dL) 303 H 224 H (75-99) mg/dL Plasma Lactic Acid Rishi (0.7-2.0) mmol/L Urine Glucose (UA) 4+ H (Negative) Urine Ketones Trace H (Negative) 01/23/18 01/23/18 Range/Units 06:54 07:09 APTT (22.0-30.0) sec Creatinine 0.62 L (0.66-1.25) mg/dL Glucose 230 H (74-99) mg/dL POC Glucose (mg/dL) 213 H (75-99) mg/dL Plasma Lactic Acid Rishi (0.7-2.0) mmol/L Urine Glucose (UA) (Negative) Urine Ketones (Negative) Assessment and Plan Plan: This is a 63-year-old male patient who presented to the hospital with right-sided scrotal abscess status post I&D done by Dr. Trimble. Wound cultures are in progress. Blood culture is status received. Patient is currently on Zosyn and vancomycin which will be continued until culture reports are completed. Patient does need tight glucose control. Hemoglobin A1c is currently pending. Continue supportive care. Further recommendations as patient progresses. The above dictated assessment and findings were discussed with Dr. Garcia. The impression and plan of care have been directed as dictated. Bella Murry nurse practitioner acting as scribe for Dr. Garcia.
[2018-01-23] MEDS: PIPERACILLIN-TAZOBACTAM 3.375 GM in DEXTROSE/WATER 1 50ML.BAG IVPB SCH ×2 (10:19→16:56)
[2018-01-23 11:02] LABS: Glucose,Whole Blood 282 mg/dL (75-99)
[2018-01-23] MEDS ORDERED: MORPHINE ORAL SOLN 10 MG/5 ML CUP PO PRN (13:21)
--- NOTE | 2018-01-23 15:24 | P.PN ---
Subjective 58-year-old gentleman was admitted for scrotal abscess which was drained and patient is presently on Zosyn and vancomycin awaiting the wound cultures and studies. Patient pain is well controlled at this time. Constitutional: Denied any fatigue denied any fever. Cardio vascular: denied any chest pain, palpitations Gastrointestinal denied any nausea vomiting Pulmonary: Denied any shortness of breath cough Neurologic denied any new focal deficits Objective - Vital Signs Vital signs: Vital Signs Temp 97.8 F 01/23/18 14:20 Pulse 60 01/23/18 14:20 Resp 16 01/23/18 14:20 BP 128/67 01/23/18 14:20 Pulse Ox 97 01/23/18 14:20 Intake & Output 01/22/18 01/23/18 01/23/18 18:59 06:59 18:59 Intake Total 300 Balance 300 Weight 107 kg 139.8 kg Intake: Intake, IV Titration 300 Amount Piperacillin-Tazobactam 3 50 .375 gm In Dextrose/Water 1 50ml.bag @ 12.5 mls/hr IVPB Q8HR [facility] Rx#: [id number] Vancomycin 2,250 mg In 250 Sodium Chloride 0.9% 500 ml @ 167 mls/hr IVPB Q12H [facility] Rx#:[id number] Other: Voiding Method Toilet Toilet Urinal # Voids 1 525 - Exam PHYSICAL EXAMINATION: GENERAL: The patient is alert and oriented x3, not in any acute distress. Well developed, well nourished. HEENT: Pupils are round and equally reacting to light. EOMI. No scleral icterus. No conjunctival pallor. Normocephalic, atraumatic. No pharyngeal erythema. No thyromegaly. CARDIOVASCULAR: S1 and S2 present. No murmurs, rubs, or gallops. PULMONARY: Chest is clear to auscultation, no wheezing or crackles. ABDOMEN: Soft, nontender, nondistended, normoactive bowel sounds. No palpable organomegaly. MUSCULOSKELETAL: No joint swelling or deformity. EXTREMITIES: No cyanosis, clubbing, or pedal edema. Scrotal area is post surgically packed NEUROLOGICAL: Gross neurological examination did not reveal any focal deficits. SKIN: No rashes. - Labs CBC & Chem 7: 01/23/18 07:09 01/23/18 07:09 Labs: Abnormal Lab Results - Last 24 Hours (Table) 01/22/18 01/22/18 01/22/18 Range/Units 20:55 20:55 20:55 APTT 20.3 L (22.0-30.0) sec Creatinine (0.66-1.25) mg/dL Glucose 335 H (74-99) mg/dL POC Glucose (mg/dL) (75-99) mg/dL Hemoglobin A1c (4.0-6.0) % Plasma Lactic Acid Rishi 2.6 H* (0.7-2.0) mmol/L Urine Glucose (UA) (Negative) Urine Ketones (Negative) 01/22/18 01/22/18 01/23/18 Range/Units 21:53 23:41 00:44 APTT (22.0-30.0) sec Creatinine (0.66-1.25) mg/dL Glucose (74-99) mg/dL POC Glucose (mg/dL) 303 H (75-99) mg/dL Hemoglobin A1c 7.0 H (4.0-6.0) % Plasma Lactic Acid Rishi (0.7-2.0) mmol/L Urine Glucose (UA) 4+ H (Negative) Urine Ketones Trace H (Negative) 01/23/18 01/23/18 01/23/18 Range/Units 03:39 06:54 07:09 APTT (22.0-30.0) sec Creatinine 0.62 L (0.66-1.25) mg/dL Glucose 230 H (74-99) mg/dL POC Glucose (mg/dL) 224 H 213 H (75-99) mg/dL Hemoglobin A1c (4.0-6.0) % Plasma Lactic Acid Rishi (0.7-2.0) mmol/L Urine Glucose (UA) (Negative) Urine Ketones (Negative) 01/23/18 Range/Units 11:01 APTT (22.0-30.0) sec Creatinine (0.66-1.25) mg/dL Glucose (74-99) mg/dL POC Glucose (mg/dL) 282 H (75-99) mg/dL Hemoglobin A1c (4.0-6.0) % Plasma Lactic Acid Rishi (0.7-2.0) mmol/L Urine Glucose (UA) (Negative) Urine Ketones (Negative) Microbiology - Last 24 Hours (Table) 01/23/18 00:50 Anaerobic Culture - Preliminary Groin 01/23/18 00:50 Wound Culture - Preliminary Groin Assessment and Plan Plan: -Scrotal abscess status post drainage patient is on Zosyn and vancomycin -Type 2 diabetes mellitus: Continue with the present insulin regimen and titrate insulin depending on the blood sugars. -Hypertension -Hyperlipidemia -Diabetic peripheral neuropathy -Coronary artery disease For above-mentioned chronic medical problems patient will be resumed and continued on appropriate home medications.
[2018-01-23] MEDS ORDERED: VANCOMYCIN 1,750 MG in SODIUM CHLORIDE 0.9% 250 ML IVPB SCH (16:00)
[2018-01-23 17:00] LABS: Glucose,Whole Blood 274 mg/dL (75-99)
[2018-01-23] MEDS: INSULIN ASPART 100 UNIT/ML 1 ML 10 ML VIAL SQ SCH ×2 (17:02→21:25)
[2018-01-23] MEDS: ATORVASTATIN 40 MG TAB PO SCH (20:28)
[2018-01-23 20:44] LABS: Glucose,Whole Blood 272 mg/dL (75-99)
--- NOTE | 2018-01-23 21:40 | P.CON ---
Consult Note - . Consult date: 01/23/18 Assessment/Plan:: This is a 63-year-old male patient gives history of having a ball bearing size lump and his right scrotum that has been there for 25-30 years did not give him any trouble. He noticed that he had increased swelling to the same area that became the size of a large egg. Patient states he went to the bathroom yesterday to check this area and he felt the area and hand came back with bloody purulent drainage and he [facility] and was told to have it checked in the next 24 hours.. He denies having any fever or chills, loss of appetite, rigors or muscle aches. He does not divulge his blood sugar readings at home. He came into the [facility] emergency center for evaluation. He did present with a blood sugar of 335. He does not know his hemoglobin A1c. Patient has been afebrile with white count of 10.5. His lactic acid was 2.6 and repeat 1.8. Ultrasound shows complex subcutaneous abscess, avascular. No testicular torsion. He was given a 1 L of fluid, Unasyn and vancomycin and admitted to the [facility] floor. He is currently on vancomycin and Zosyn. His urinalysis was clear with glucose 4+ ketones trace. Patient has been seen by Dr. Trimble and I&D was done. He has recommended sitz bath twice daily. Wound cultures are in progress. Patient states his pain as a #67. And he feels there is some improvement in the swelling since the I&D. Patient has extensive coronary artery disease and vascular disease. Last week he underwent abdominal aortogram with bilateral lower extremity runoff. He states he wasn't Dr. Chen' s office yesterday to get the results and was told he had 100% blockage on the right and 78% on the left and is expecting a phone call to set up further procedure. Patient has had one abscess that required I&D done by Dr. Echeverria last year to the right occipital area. Patient denies any history of MRSA. Please see the consult note as dictated by nurse practitioner Bella Hernandezluc. Patient relates that he feels poorly apparently this is due to his extensive psychosocial difficulties is gone through over the last several years. His for 45 years suddenly him and there is a personal protective order series really never had any good input as to what actually happened. He remained somewhat heartbroken. Importantly he has developed the acute pain and swelling to the right side of the lower aspect of the scrotum, is evaluated by urology and cultures been obtained. Antibiotic therapy with vancomycin and Zosyn are being utilized until we have some further culture data. Elevation and ice will be utilized. Patient relates that he has somewhat discontent about his diabetes care at the hospital. He appears to have extensive insulin resistance and requires large doses of insulin, I have discussed with the patient that they'll want some verification to ensure that insulin dosing is not problematic. I agree with evaluation, assessment and plan as dictated by nurse practitioner Mrs. Bella Murry.
[2018-01-24] MEDS: HYDROcodone/APAP 10-325MG 1 EACH TAB PO PRN ×3 (00:05→19:34)
[2018-01-24] MEDS: PIPERACILLIN-TAZOBACTAM 3.375 GM in DEXTROSE/WATER 1 50ML.BAG IVPB SCH ×3 (00:07→17:37)
[2018-01-24] MEDS ORDERED: VANCOMYCIN TROUGH DUE 1 EACH MISC MISCELLANE ONE (07:00)
[2018-01-24 07:26] LABS: Glucose,Whole Blood 259 mg/dL (75-99)
[2018-01-24] MEDS: CLOPIDOGREL 75 MG TAB PO SCH (07:39)
[2018-01-24] MEDS: METOPROLOL TARTRATE 50 MG TAB PO SCH ×2 (07:39→20:37)
[2018-01-24] MEDS: LISINOPRIL 10 MG TAB PO SCH (07:39)
[2018-01-24] MEDS: ASPIRIN 81 MG PO SCH (07:40)
[2018-01-24] MEDS: GABAPENTIN 300 MG CAP PO SCH ×3 (07:40→21:51)
[2018-01-24] MEDS: ENOXAPARIN 40 MG/0.4 ML SYRINGE SQ SCH (07:40)
[2018-01-24] MEDS: INSULIN ASPART 100 UNIT/ML 1 ML 10 ML VIAL SQ SCH ×4 (07:40→20:35)
[2018-01-24] MEDS: PANTOPRAZOLE 40 MG/10 ML VIAL IV SCH (07:40)
[2018-01-24 07:42] LABS: Basophils # (A) 0.1 k/uL (0-0.2); Basophils % (A) 1 %; Eosinophils # (A) 0.4 k/uL (0-0.7); Eosinophils % (A) 5 %; HCT 41.9 % (39.0-53.0); HGB 14.2 gm/dL (13.0-17.5); Lymphocytes # (A) 1.5 k/uL (1.0-4.8); Lymphocytes % (A) 22 %; MCH 30.1 pg (25.0-35.0); MCHC 33.8 g/dL (31.0-37.0); MCV 88.8 fL (80.0-100.0); Mean Platelet Volume 6.7; Monocytes # (A) 0.4 k/uL (0-1.0); Monocytes % (A) 6 %; Neutrophils # (A) 4.3 k/uL (1.3-7.7); Neutrophils % (A) 63 %; Platelet Count 220 k/uL (150-450); RBC 4.72 m/uL (4.30-5.90); RDW 13.8 % (11.5-15.5); WBC 6.8 k/uL (3.8-10.6)
[2018-01-24 07:44] LABS: Anion Gap 13 mmol/L; Blood Urea Nitrogen 13 mg/dL (9-20); Calcium 8.8 mg/dL (8.4-10.2); Carbon Dioxide 27 mmol/L (22-30); Chloride 102 mmol/L (98-107); Glucose 229 mg/dL (74-99); Potassium 4.2 mmol/L (3.5-5.1); Sodium 142 mmol/L (137-145)
--- NOTE | 2018-01-24 10:32 | P.PN ---
Subjective 58-year-old gentleman was admitted for scrotal abscess which was drained and patient is presently on Zosyn and vancomycin awaiting the wound cultures and studies. Patient pain is well controlled at this time. 01/24/2018 Patient wound cultures are still pending there Gram stain is showing gram- positive cocci and gram-negative bacilli patient is comparing of severe right knee pain does have tenderness to touch complete the continuing knee exam was not done appears to have had, in month of October because of the severity of pain and tenderness my concern is ligamental tear because of which I'll get, orthopedic surgery opinion. Constitutional: Denied any fatigue denied any fever. Cardio vascular: denied any chest pain, palpitations Gastrointestinal denied any nausea vomiting Pulmonary: Denied any shortness of breath cough Neurologic denied any new focal deficits Objective - Vital Signs Vital signs: Vital Signs Temp 97.7 F 01/24/18 07:07 Pulse 63 01/24/18 07:07 Resp 16 01/24/18 07:07 BP 153/67 01/24/18 07:07 Pulse Ox 96 01/24/18 07:07 Intake & Output 01/23/18 01/24/18 01/24/18 18:59 06:59 18:59 Intake Total 300 1152 Balance 300 1152 Weight 139.8 kg 114.5 kg Intake: Intake, IV Titration 300 550 Amount Piperacillin-Tazobactam 3 50 50 .375 gm In Dextrose/Water 1 50ml.bag @ 12.5 mls/hr IVPB Q8HR [facility] Rx#: [id number] Vancomycin 2,250 mg In 250 500 Sodium Chloride 0.9% 500 ml @ 167 mls/hr IVPB Q12H [facility] Rx#:[id number] Oral 600 Other 2 Other: Voiding Method Toilet Toilet Toilet # Voids 525 2 - Exam PHYSICAL EXAMINATION: GENERAL: The patient is alert and oriented x3, not in any acute distress. Well developed, well nourished. HEENT: Pupils are round and equally reacting to light. EOMI. No scleral icterus. No conjunctival pallor. Normocephalic, atraumatic. No pharyngeal erythema. No thyromegaly. CARDIOVASCULAR: S1 and S2 present. No murmurs, rubs, or gallops. PULMONARY: Chest is clear to auscultation, no wheezing or crackles. ABDOMEN: Soft, nontender, nondistended, normoactive bowel sounds. No palpable organomegaly. MUSCULOSKELETAL: No joint swelling or deformity. Patient does have minimal swelling in the right knee although no local is of temperature no signs of septic arthritis but does have tenderness and local is of temperature concerning for ligamental tear EXTREMITIES: No cyanosis, clubbing, or pedal edema. Scrotal area is post surgically packed NEUROLOGICAL: Gross neurological examination did not reveal any focal deficits. SKIN: No rashes. - Labs CBC & Chem 7: 01/24/18 06:46 01/24/18 06:46 Labs: Abnormal Lab Results - Last 24 Hours (Table) 01/23/18 01/23/18 01/23/18 Range/Units 00:44 11:01 16:57 Creatinine (0.66-1.25) mg/dL Glucose (74-99) mg/dL POC Glucose (mg/dL) 282 H 274 H (75-99) mg/dL Hemoglobin A1c 7.0 H (4.0-6.0) % 01/23/18 01/24/18 01/24/18 Range/Units 20:42 06:46 07:08 Creatinine 0.64 L (0.66-1.25) mg/dL Glucose 229 H (74-99) mg/dL POC Glucose (mg/dL) 272 H 259 H (75-99) mg/dL Hemoglobin A1c (4.0-6.0) % Microbiology - Last 24 Hours (Table) 01/23/18 06:50 Gram Stain - Preliminary Groin Wound Culture - Preliminary 01/22/18 20:55 Blood Culture - Preliminary Blood No Growth after 24 hours 01/23/18 00:50 Gram Stain - Preliminary Groin Wound Culture - Preliminary 01/23/18 00:50 Anaerobic Culture - Preliminary Groin Assessment and Plan Plan: -Scrotal abscess status post drainage patient is on Zosyn and vancomycin. Awaiting wound cultures and studies. -Type 2 diabetes mellitus: Continue with the present insulin regimen and titrate insulin depending on the blood sugars. -Hypertension -Hyperlipidemia -Diabetic peripheral neuropathy -Coronary artery disease -Right knee pain: Orthopedic surgery consult as mentioned above For above-mentioned chronic medical problems patient will be resumed and continued on appropriate home medications.
[2018-01-24] MEDS: KETOROLAC 30 MG/ML 1 ML VIAL IVP PRN ×2 (11:11→20:39)
[2018-01-24] MEDS: VANCOMYCIN 2,250 MG in SODIUM CHLORIDE 0.9% 500 ML IVPB SCH ×2 (11:13→21:51)
[2018-01-24 11:36] LABS: Glucose,Whole Blood 323 mg/dL (75-99)
--- NOTE | 2018-01-24 11:37 | P.PN ---
Subjective Progress Note Date: 01/24/18 The patient was seen in consultation for scrotal abscess. I drained the abscess as well as obtain a culture. The culture is pending. His examination today shows marked improvement with the local care, drainage and IV antibiotics. From urologic standpoint he can be discharged home at any time on appropriate oral antibiotics as deemed by Dr. Garcia. He needs is seen in the office in a week Objective - Vital Signs Vital signs: Vital Signs Temp 97.7 F 01/24/18 07:07 Pulse 63 01/24/18 07:07 Resp 16 01/24/18 07:07 BP 153/67 01/24/18 07:07 Pulse Ox 96 01/24/18 07:07 Intake & Output 01/23/18 01/24/18 01/24/18 18:59 06:59 18:59 Intake Total 300 1152 Balance 300 1152 Weight 139.8 kg 114.5 kg Intake: Intake, IV Titration 300 550 Amount Piperacillin-Tazobactam 3 50 50 .375 gm In Dextrose/Water 1 50ml.bag @ 12.5 mls/hr IVPB Q8HR [facility] Rx#: [id number] Vancomycin 2,250 mg In 250 500 Sodium Chloride 0.9% 500 ml @ 167 mls/hr IVPB Q12H [facility] Rx#:[id number] Oral 600 Other 2 Other: Voiding Method Toilet Toilet Toilet # Voids 525 2 - Labs CBC & Chem 7: 01/24/18 06:46 01/24/18 06:46 Labs: Abnormal Lab Results - Last 24 Hours (Table) 01/23/18 01/23/18 01/23/18 Range/Units 00:44 16:57 20:42 Creatinine (0.66-1.25) mg/dL Glucose (74-99) mg/dL POC Glucose (mg/dL) 274 H 272 H (75-99) mg/dL Hemoglobin A1c 7.0 H (4.0-6.0) % 01/24/18 01/24/18 Range/Units 06:46 07:08 Creatinine 0.64 L (0.66-1.25) mg/dL Glucose 229 H (74-99) mg/dL POC Glucose (mg/dL) 259 H (75-99) mg/dL Hemoglobin A1c (4.0-6.0) % Microbiology - Last 24 Hours (Table) 01/23/18 06:50 Gram Stain - Preliminary Groin Wound Culture - Preliminary Gram Neg Bacilli 01/23/18 00:50 Gram Stain - Preliminary Groin Wound Culture - Preliminary 01/22/18 20:55 Blood Culture - Preliminary Blood No Growth after 24 hours 01/23/18 00:50 Anaerobic Culture - Preliminary Groin
[2018-01-24 17:11] LABS: Glucose,Whole Blood 301 mg/dL (75-99)
[2018-01-24 19:59] LABS: Glucose,Whole Blood 264 mg/dL (75-99)
[2018-01-24] MEDS: INSULIN DETEMIR 100 UNIT/ML 10 ML VIAL SQ SCH (20:35)
[2018-01-24] MEDS: ATORVASTATIN 40 MG TAB PO SCH (20:37)
[2018-01-24] MEDS: FAMOTIDINE 20 MG TAB PO SCH (20:38)
--- NOTE | 2018-01-24 21:09 | P.PN ---
Subjective Progress Note Date: 01/24/18 This is a 63-year-old male patient gives history of having a ball bearing size lump and his right scrotum that has been there for 25-30 years did not give him any trouble. He noticed that he had increased swelling to the same area that became the size of a large egg. Patient states he went to the bathroom yesterday to check this area and he felt the area and hand came back with bloody purulent drainage and he [facility] and was told to have it checked in the next 24 hours.. He denies having any fever or chills, loss of appetite, rigors or muscle aches. He does not divulge his blood sugar readings at home. He came into the [facility] emergency center for evaluation. He did present with a blood sugar of 335. He does not know his hemoglobin A1c. Patient has been afebrile with white count of 10.5. His lactic acid was 2.6 and repeat 1.8. Ultrasound shows complex subcutaneous abscess, avascular. No testicular torsion. He was given a 1 L of fluid, Unasyn and vancomycin and admitted to the [facility] floor. He is currently on vancomycin and Zosyn. His urinalysis was clear with glucose 4+ ketones trace. Patient has been seen by Dr. Trimble and I&D was done. He has recommended sitz bath twice daily. Wound cultures are in progress. Patient states his pain as a #67. And he feels there is some improvement in the swelling since the I&D. Patient has extensive coronary artery disease and vascular disease. Last week he underwent abdominal aortogram with bilateral lower extremity runoff. He states he wasn't Dr. Chen' s office yesterday to get the results and was told he had 100% blockage on the right and 78% on the left and is expecting a phone call to set up further procedure. Patient has had one abscess that required I&D done by Dr. Echeverria last year to the right occipital area. Patient denies any history of MRSA. 01/24/2018 patient is feeling better today. Pain and swelling to the scrotum is improved. He is not having fever. However he is having significant discomfort to his right knee. Orthopedic consult has been requested. Blood sugars are elevated, and patient does state that he has significant insulin resistance. Objective - Vital Signs Vital signs: Vital Signs Temp 97.9 F 01/24/18 15:04 Pulse 66 01/24/18 15:04 Resp 16 01/24/18 15:04 BP 126/60 01/24/18 15:04 Pulse Ox 95 01/24/18 15:04 Intake & Output 01/24/18 01/24/18 01/25/18 06:59 18:59 06:59 Intake Total 1152 600 Balance 1152 600 Weight 114.5 kg Intake: Intake, IV Titration 550 600 Amount Piperacillin-Tazobactam 3 50 100 .375 gm In Dextrose/Water 1 50ml.bag @ 12.5 mls/hr IVPB Q8HR LEVY Rx#: [id number] Vancomycin 2,250 mg In 500 500 Sodium Chloride 0.9% 500 ml @ 167 mls/hr IVPB Q12H LEVY Rx#:[id number] Oral 600 Other 2 Other: Voiding Method Toilet Toilet # Voids 2 - Exam Gen: This is an obese 63-year-old male. He is sitting up in bed and appears to be comfortable and in no acute distress. HEENT: Head is atraumatic, normocephalic. Pupils equal, round. Sclerae is anicteric. Conjunctiva pink. Mucous membranes of the mouth are moist. Dentition is in good order. No thrush noted. NECK: Short and thick. Supple. No JVD. No lymphadenopathy. No thyromegaly. LUNGS: Clear to auscultation. No wheezes or rhonchi. No intercostal retractions. HEART: Regular rate and rhythm. Systolic murmur. ABDOMEN: Obese. Soft. Bowel sounds are present. No masses. No tenderness. GENITAL: Exam deferred to Dr. Garcia. EXTREMITIES: No pedal edema. No calf tenderness. Dorsalis pedis is 1+ bilaterally. The right knee does have some swelling and has distinct tenderness on the medial aspect of the knee over the medial tibial area NEUROLOGICAL: Patient is awake, alert and oriented x3. Cranial nerves 2 through 12 are grossly intact. - Labs CBC & Chem 7: 01/24/18 06:46 01/24/18 06:46 Labs: Abnormal Lab Results - Last 24 Hours (Table) 01/24/18 01/24/18 01/24/18 Range/Units 06:46 07:08 11:34 Creatinine 0.64 L (0.66-1.25) mg/dL Glucose 229 H (74-99) mg/dL POC Glucose (mg/dL) 259 H 323 H (75-99) mg/dL 01/24/18 01/24/18 Range/Units 17:01 19:58 Creatinine (0.66-1.25) mg/dL Glucose (74-99) mg/dL POC Glucose (mg/dL) 301 H 264 H (75-99) mg/dL Microbiology - Last 24 Hours (Table) 01/23/18 06:50 Gram Stain - Preliminary Groin Wound Culture - Preliminary Gram Neg Bacilli 01/23/18 00:50 Gram Stain - Preliminary Groin Wound Culture - Preliminary 01/22/18 20:55 Blood Culture - Preliminary Blood No Growth after 24 hours Laboratory Results WBC 6.8 k/uL (3.8-10.6) 01/24/18 06:46 RBC 4.72 m/uL (4.30-5.90) 01/24/18 06:46 Hgb 14.2 gm/dL (13.0-17.5) 01/24/18 06:46 Hct 41.9 % (39.0-53.0) 01/24/18 06:46 MCV 88.8 fL (80.0-100.0) 01/24/18 06:46 MCH 30.1 pg (25.0-35.0) 01/24/18 06:46 MCHC 33.8 g/dL (31.0-37.0) 01/24/18 06:46 RDW 13.8 % (11.5-15.5) 01/24/18 06:46 Plt Count 220 k/uL (150-450) 01/24/18 06:46 Neutrophils % 63 % 01/24/18 06:46 Lymphocytes % 22 % 01/24/18 06:46 Monocytes % 6 % 01/24/18 06:46 Eosinophils % 5 % 01/24/18 06:46 Basophils % 1 % 01/24/18 06:46 Neutrophils # 4.3 k/uL (1.3-7.7) 01/24/18 06:46 Lymphocytes # 1.5 k/uL (1.0-4.8) 01/24/18 06:46 Monocytes # 0.4 k/uL (0-1.0) 01/24/18 06:46 Eosinophils # 0.4 k/uL (0-0.7) 01/24/18 06:46 Basophils # 0.1 k/uL (0-0.2) 01/24/18 06:46 PT 10.2 sec (9.0-12.0) 01/22/18 20:55 INR 1.0 (<1.2) 01/22/18 20:55 APTT 20.3 sec (22.0-30.0) L 01/22/18 20:55 Sodium 142 mmol/L (137-145) 01/24/18 06:46 Potassium 4.2 mmol/L (3.5-5.1) 01/24/18 06:46 Chloride 102 mmol/L (98-107) 01/24/18 06:46 Carbon Dioxide 27 mmol/L (22-30) 01/24/18 06:46 Anion Gap 13 mmol/L 01/24/18 06:46 BUN 13 mg/dL (9-20) 01/24/18 06:46 Creatinine 0.64 mg/dL (0.66-1.25) L 01/24/18 06:46 Est GFR (CKD-EPI)AfAm >90 (>60 ml/min/1.73 sqM) 01/24/18 06:46 Est GFR (CKD-EPI)NonAf >90 (>60 ml/min/1.73 sqM) 01/24/18 06:46 Glucose 229 mg/dL (74-99) H 01/24/18 06:46 POC Glucose (mg/dL) 264 mg/dL (75-99) H 01/24/18 19:58 POC Glu [employer] FAUSTINO Connie Dawnbeth 01/24/18 19:[address] Glu mg/dL 154 01/23/18 00:44 Hemoglobin A1c 7.0 % (4.0-6.0) H 01/23/18 00:44 Lactic Ac Sepsis Rflx Y 01/22/18 21:24 Plasma Lactic Acid Rishi 1.8 mmol/L (0.7-2.0) 01/23/18 00:44 Calcium 8.8 mg/dL (8.4-10.2) 01/24/18 06:46 Total Bilirubin 0.4 mg/dL (0.2-1.3) 01/22/18 20:55 AST 34 U/L (17-59) 01/22/18 20:55 ALT 29 U/L (21-72) 01/22/18 20:55 Alkaline Phosphatase 69 U/L (38-126) 01/22/18 20:55 Total Protein 7.5 g/dL (6.3-8.2) 01/22/18 20:55 Albumin 4.1 g/dL (3.5-5.0) 01/22/18 20:55 Urine Color Yellow 01/22/18 21:53 Urine Appearance Clear (Clear) 01/22/18 21:53 Urine pH 5.5 (5.0-8.0) 01/22/18 21:53 Ur Specific [place] 1.019 (1.001-1.035) 01/22/18 21:53 Urine Protein Negative (Negative) 01/22/18 21:53 Urine Glucose (UA) 4+ (Negative) H 01/22/18 21:53 Urine Ketones Trace (Negative) H 01/22/18 21:53 Urine Blood Negative (Negative) 01/22/18 21:53 Urine Nitrite Negative (Negative) 01/22/18 21:53 Urine Bilirubin Negative (Negative) 01/22/18 21:53 Urine Urobilinogen <2.0 mg/dL (<2.0) 01/22/18 21:53 Ur Leukocyte Esterase Negative (Negative) 01/22/18 21:53 Microbiology 01/23/18 06:50 Groin Gram Stain - Preliminary 01/23/18 06:50 Groin Wound Culture - Preliminary Gram Neg Bacilli 01/23/18 00:50 Groin Gram Stain - Preliminary 01/23/18 00:50 Groin Wound Culture - Preliminary 01/22/18 20:55 Blood Blood Culture - Preliminary No Growth after 24 hours 01/23/18 00:50 Groin Anaerobic Culture - Preliminary Assessment and Plan (1) Scrotal abscess Narrative/Plan: Patient relates that he feels poorly apparently this is due to his extensive psychosocial difficulties is gone through over the last several years. His for 45 years suddenly him and there is a personal protective order series really never had any good input as to what actually happened. He remained somewhat heartbroken. Importantly he has developed the acute pain and swelling to the right side of the lower aspect of the scrotum, is evaluated by urology and cultures been obtained. Antibiotic therapy with vancomycin and Zosyn are being utilized until we have some further culture data. Elevation and ice will be utilized. Patient relates that he has somewhat discontent about his diabetes care at the hospital. He appears to have extensive insulin resistance and requires large doses of insulin, I have discussed with the patient that they'll want some verification to ensure that insulin dosing is not problematic On 01/24/2018 the patient relates he is feeling slightly better. The tenderness and discomfort to the scrotum is improved. There is improved drainage. But is having significant discomfort to his right knee. Orthopedic consult has been requested given the difficulties to that site. May require outpatient MRI imaging and follow-up with orthopedics. Once cultures are back likely will be able to go home on oral antibiotic therapy possibly with Augmentin , hopefully culture available tomorrow. Current Visit: Yes Status: Acute Code(s): N49.2 - INFLAMMATORY DISORDERS OF SCROTUM SNOMED Code(s): 64127518
[2018-01-25] MEDS: PIPERACILLIN-TAZOBACTAM 3.375 GM in DEXTROSE/WATER 1 50ML.BAG IVPB SCH ×2 (01:32→07:35)
[2018-01-25 07:01] LABS: Glucose,Whole Blood 193 mg/dL (75-99)
[2018-01-25] MEDS: INSULIN ASPART 100 UNIT/ML 1 ML 10 ML VIAL SQ SCH (07:27)
[2018-01-25] MEDS ORDERED: VANCOMYCIN TROUGH DUE 1 EACH MISC MISCELLANE ONE (08:00)
[2018-01-25 08:05] LABS: Basophils # (A) 0.1 k/uL (0-0.2); Basophils % (A) 1 %; Eosinophils # (A) 0.4 k/uL (0-0.7); Eosinophils % (A) 5 %; HGB 14.1 gm/dL (13.0-17.5); Lymphocytes # (A) 1.4 k/uL (1.0-4.8); Lymphocytes % (A) 17 %; MCH 30.3 pg (25.0-35.0); MCHC 34.4 g/dL (31.0-37.0); MCV 88.1 fL (80.0-100.0); Mean Platelet Volume 6.6; Monocytes # (A) 0.5 k/uL (0-1.0); Monocytes % (A) 7 %; Neutrophils # (A) 5.5 k/uL (1.3-7.7); Neutrophils % (A) 68 %; Platelet Count 215 k/uL (150-450); RBC 4.66 m/uL (4.30-5.90); RDW 13.7 % (11.5-15.5)
[2018-01-25] MEDS: ENOXAPARIN 40 MG/0.4 ML SYRINGE SQ SCH (08:11)
[2018-01-25] MEDS: CLOPIDOGREL 75 MG TAB PO SCH (08:11)
[2018-01-25] MEDS: FAMOTIDINE 20 MG TAB PO SCH (08:11)
[2018-01-25] MEDS: METOPROLOL TARTRATE 50 MG TAB PO SCH (08:11)
[2018-01-25] MEDS: LISINOPRIL 10 MG TAB PO SCH (08:11)
[2018-01-25] MEDS: GABAPENTIN 300 MG CAP PO SCH (08:11)
[2018-01-25] MEDS: ASPIRIN 81 MG PO SCH (08:11)
[2018-01-25 08:12] LABS: Anion Gap 12 mmol/L; Blood Urea Nitrogen 12 mg/dL (9-20); Calcium 8.5 mg/dL (8.4-10.2); Carbon Dioxide 27 mmol/L (22-30); Chloride 103 mmol/L (98-107); Glucose 186 mg/dL (74-99); Potassium 3.9 mmol/L (3.5-5.1); Sodium 142 mmol/L (137-145)
[2018-01-25 08:28] VITALS: BP 125/69; PULSE 77; RESP 16; TEMP 98.1
[2018-01-25] MEDS ORDERED: PANTOPRAZOLE 40 MG TABLET PO SCH (09:00)
--- NOTE | 2018-01-25 09:38 | P.CNOR ---
History of Present Illness - [facility] Consult date: 01/25/18 Consult reason: joint pain (Right knee) History of present illness: This is a 63 year old male is admitted with a scrotal abscess. He complains of right knee pain. He states his knee has been painful since October of this year. He denies injury. He was advised to follow-up with orthopedics back in October but he has not been able to do so. He has not yet had any formal treatment for his right knee pain. Past Medical History Past Medical History: Coronary Artery Disease (CAD), Chest Pain / Angina, Heart Failure, Diabetes Mellitus, Hyperlipidemia, Hypertension, Myocardial Infarction (LA), Osteoarthritis (OA) Additional Past Medical History / Comment(s): PAD, hx anemia, peripheral neuropathy, spinal stenosis, herniated disc, ddd 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 quintuple bypass , BILAT CATARACTS REMOVED, 2 HEART STENTS Past Anesthesia/Blood Transfusion Reactions: No Reported Reaction Additional Past Anesthesia/Blood Transfusion Reaction / Comm: CLAUSTERPHOBIA Date of Last Stent Placement:: 2014 Past Psychological History: No Psychological Hx Reported Additional Psychological History / Comment(s): . Smoking Status: Former smoker Past Alcohol Use History: Occasional Additional Past Alcohol Use History / Comment(s): STARTED SMOKING CIG AT AGE 15 1PPD,QUIT 2011. He denies street drug or alcohol use. He is retired since 2002. 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 He served in the [employer]. [facility]. No animals in the home. He does live alone and in 2014. Past Drug Use History: None Reported - Past Family History Father Family Medical History: Coronary Artery Disease (CAD), Diabetes Mellitus Additional Family Medical History / Comment(s): CABG Mother Family Medical History: Coronary Artery Disease (CAD), Diabetes Mellitus Additional Family Medical History / Comment(s): CABG Medications and Allergies Home Medications Medication Instructions Recorded Confirmed Type LORazepam [Ativan] 1 mg PO TID PRN #60 tab 07/02/15 01/22/18 Rx Aspirin EC [Ecotrin Low Dose] 81 mg PO DAILY 07/06/15 01/22/18 History HYDROcodone/APAP 10-325MG [[place] 1 tab PO TID PRN 11/13/15 01/22/18 History 10-325] Gabapentin [Neurontin] 900 mg PO TID 06/18/16 01/22/18 History Hydrochlorothiazide 12.5 mg PO DAILY 06/18/16 01/22/18 History Lisinopril [Zestril] 10 mg PO DAILY #1 tab 06/20/16 01/22/18 Rx Insulin Aspart [NovoLOG Flexpen] See Protocol SQ ACHS 01/16/17 01/22/18 History Clopidogrel [Plavix] 75 mg PO DAILY #90 tab 01/19/17 01/22/18 Rx Nitroglycerin Sl Tabs [Nitrostat] 0.4 mg SUBLINGUAL Q5M PRN #25 tab 01/19/17 Rx Atorvastatin [Lipitor] 40 mg PO HS 01/10/18 01/22/18 History Metoprolol Tartrate [Lopressor] 50 mg PO BID 01/10/18 01/22/18 History Amoxicillin/Potassium Clav 1 each PO Q12HR #20 tab 01/24/18 Rx [Augmentin 875-125 Tablet] Insulin Aspart [Novolog] 15 unit SQ ACHS #1 cartridge 01/25/18 Rx Insulin Glargine,Hum.rec.anlog 60 unit SQ HS #0 01/25/18 01/22/18 Rx [Lantus Solostar] Naproxen [Naprosyn] 250 mg PO TID PRN #30 tab 01/25/18 Rx Ranitidine HCl [Zantac] 150 mg PO BID #30 tab 01/25/18 Rx Allergies Allergy/AdvReac Type Severity Reaction Status Date / Time No Known Allergies Allergy Verified 01/22/18 20:32 Physical Examination This is a pleasant 63-year-old male in no acute distress. He is alert and oriented 3. Exam of the right lower extremity reveals a 2+ knee effusion. There is no erythema or ecchymosis. He has pain with motion of the knee. He is able to flex the knee to about 70-80. He has full extension. There is mild crepitus with motion of the knee. There is mild pain on palpation about the medial and lateral joint line. He has full foot and ankle motion without difficulty or pain. Neurovascular status to the right lower extremity is intact. Results X-rays from October of this year of the right knee reveal mild degenerative changes. No fractures identified. A calcified popliteal artery is noted. - Labs Labs: Abnormal Lab Results - Last 24 Hours (Table) 01/24/18 01/24/18 01/24/18 Range/Units 11:34 17:01 19:58 Glucose (74-99) mg/dL POC Glucose (mg/dL) 323 H 301 H 264 H (75-99) mg/dL 01/25/18 01/25/18 Range/Units 07:00 07:14 Glucose 186 H (74-99) mg/dL POC Glucose (mg/dL) 193 H (75-99) mg/dL Microbiology - Last 24 Hours (Table) 01/22/18 20:55 Blood Culture - Preliminary Blood No Growth after 48 hours 01/23/18 06:50 Gram Stain - Preliminary Groin Wound Culture - Preliminary Gram Neg Bacilli 01/23/18 00:50 Gram Stain - Preliminary Groin Wound Culture - Preliminary H & H 01/22/18 01/23/18 01/24/18 Range/Units 20:55 07:09 06:46 Hgb 14.8 14.0 14.2 (13.0-17.5) gm/dL Hct 43.5 41.5 41.9 (39.0-53.0) % 01/25/18 Range/Units 07:14 Hgb 14.1 (13.0-17.5) gm/dL Hct 41.0 (39.0-53.0) % Coagulation 01/22/18 Range/Units 20:55 INR 1.0 (<1.2) Result Diagrams: 01/25/18 07:14 01/25/18 07:14 Assessment and Plan (1) Degenerative arthritis of right knee Current Visit: Yes Status: Acute Code(s): M17.11 - UNILATERAL PRIMARY OSTEOARTHRITIS, RIGHT KNEE SNOMED Code(s): 120086631220672 (2) Diabetes Current Visit: Yes Status: Acute Code(s): E11.9 - TYPE 2 DIABETES MELLITUS WITHOUT COMPLICATIONS SNOMED Code(s): 55786570 (3) Hyperglycemia Current Visit: Yes Status: Acute Code(s): R73.9 - HYPERGLYCEMIA, UNSPECIFIED SNOMED Code(s): 26644912 (4) Effusion, right knee Current Visit: Yes Status: Acute Code(s): M25.461 - EFFUSION, RIGHT KNEE SNOMED Code(s): 909795204 Plan: The clinical findings of been discussed with the patient. It is recommended that he undergo aspiration of the fluid and possible cortisone injection if cleared by medicine. I recommend a hinged knee brace for support. The patient is declining the aspiration and injection at this time. He will proceed with a knee brace for support. He will follow up with orthopedics as an outpatient.
--- NOTE | 2018-01-25 10:59 | P.DS ---
Providers Date of admission: 01/22/18 22:23 Attending physician: Sedrick Strauss MD Consults: 01/22/18 22:24 Consult Physician Urgent Consulting Provider: Jean Trimble Consult Reason/Comments: scrotal abscess Do you want consulting provider notified?: Yes 01/23/18 00:26 Consult Physician Routine Consulting Provider: Martin Garcia Consult Reason/Comments: sepsis Do you want consulting provider notified?: Yes 01/24/18 10:38 Consult Physician Routine Consulting Provider: Ricardo Khan Consult Reason/Comments: right knee pain Do you want consulting provider notified?: Already Contacted Primary care physician: Lisandro [facility] Course: 58-year-old gentleman was admitted for scrotal abscess which was drained and patient is presently on Zosyn and vancomycin awaiting the wound cultures and studies. Patient pain is well controlled at this time. 01/24/2018 Patient wound cultures are still pending there Gram stain is showing gram- positive cocci and gram-negative bacilli patient is comparing of severe right knee pain does have tenderness to touch complete the continuing knee exam was not done appears to have had, in month of October because of the severity of pain and tenderness my concern is ligamental tear because of which I'll get, orthopedic surgery opinion. 01/25/2018 Patient knee pain improved patient was a valid by arthritic surgery they offered the intraocular steroid injection for osteoarthritis of the right knee patient declined to get that injection and patient will be discharged on nonsteroidal anti-inflammatory circumflex pain and the patient was given prescription for Augmentin from infectious disease perspective and patient has gram-negative bacilli in the wound cultures PHYSICAL EXAMINATION: GENERAL: The patient is alert and oriented x3, not in any acute distress. Well developed, well nourished. HEENT: Pupils are round and equally reacting to light. EOMI. No scleral icterus. No conjunctival pallor. Normocephalic, atraumatic. No pharyngeal erythema. No thyromegaly. CARDIOVASCULAR: S1 and S2 present. No murmurs, rubs, or gallops. PULMONARY: Chest is clear to auscultation, no wheezing or crackles. ABDOMEN: Soft, nontender, nondistended, normoactive bowel sounds. No palpable organomegaly. MUSCULOSKELETAL: No joint swelling or deformity. Patient does have minimal swelling in the right knee although no local is of temperature no signs of septic arthritis but does have tenderness and local is of temperature concerning for ligamental tear EXTREMITIES: No cyanosis, clubbing, or pedal edema. Scrotal area is post surgically packed NEUROLOGICAL: Gross neurological examination did not reveal any focal deficits. SKIN: No rashes. Assessment and Plan Plan: -Scrotal abscess status post incision and drainage patient is being discharged on Augmentin -Type 2 diabetes mellitus: Patient will be discharged on 60 units of Lantus adding pre-meal insulin along with sliding scale with each meal -Hypertension -Hyperlipidemia -Diabetic peripheral neuropathy -Coronary artery disease -Right knee pain: Orthopedic surgery consult as mentioned above Patient Condition at Discharge: Fair Plan - Discharge Summary Discharge Rx Participant: No New Discharge Prescriptions: New Amoxicillin/Potassium Clav [Augmentin 875-125 Tablet] 1 each PO Q12HR #20 tab Insulin Aspart [Novolog] 15 unit SQ ACHS #1 cartridge Naproxen [Naprosyn] 250 mg PO TID PRN #30 tab PRN Reason: Pain Ranitidine HCl [Zantac] 150 mg PO BID #30 tab Continue LORazepam [Ativan] 1 mg PO TID PRN #60 tab PRN Reason: Anxiety Aspirin EC [Ecotrin Low Dose] 81 mg PO DAILY HYDROcodone/APAP 10-325MG [[place] 10-325] 1 tab PO TID PRN PRN Reason: Pain Gabapentin [Neurontin] 900 mg PO TID Hydrochlorothiazide 12.5 mg PO DAILY Lisinopril [Zestril] 10 mg PO DAILY #1 tab Insulin Aspart [NovoLOG Flexpen] See Protocol SQ ACHS Clopidogrel [Plavix] 75 mg PO DAILY #90 tab Nitroglycerin Sl Tabs [Nitrostat] 0.4 mg SUBLINGUAL Q5M PRN #25 tab PRN Reason: Chest Pain Atorvastatin [Lipitor] 40 mg PO HS Metoprolol Tartrate [Lopressor] 50 mg PO BID Changed Insulin Glargine,Hum.rec.anlog [Lantus Solostar] 60 unit SQ HS #0 Discharge Medication List LORazepam [Ativan] 1 mg PO TID PRN #60 tab 07/02/15 [Rx] Aspirin EC [Ecotrin Low Dose] 81 mg PO DAILY 07/06/15 [History] HYDROcodone/APAP 10-325MG [[place] 10-325] 1 tab PO TID PRN 03/04/16 [History] Gabapentin [Neurontin] 900 mg PO TID 06/18/16 [History] Hydrochlorothiazide 12.5 mg PO DAILY 06/18/16 [History] Lisinopril [Zestril] 10 mg PO DAILY #1 tab 06/20/16 [Rx] Insulin Aspart [NovoLOG Flexpen] See Protocol SQ ACHS 01/16/17 [History] Clopidogrel [Plavix] 75 mg PO DAILY #90 tab 01/19/17 [Rx] Nitroglycerin Sl Tabs [Nitrostat] 0.4 mg SUBLINGUAL Q5M PRN #25 tab 01/19/17 [Rx ] Atorvastatin [Lipitor] 40 mg PO HS 01/10/18 [History] Metoprolol Tartrate [Lopressor] 50 mg PO BID 01/10/18 [History] Amoxicillin/Potassium Clav [Augmentin 875-125 Tablet] 1 each PO Q12HR #20 tab [Rx] Insulin Aspart [Novolog] 15 unit SQ ACHS #1 cartridge 01/25/18 [Rx] Insulin Glargine,Hum.rec.anlog [Lantus Solostar] 60 unit SQ HS #0 01/25/18 [Rx] Naproxen [Naprosyn] 250 mg PO TID PRN #30 tab 01/25/18 [Rx] Ranitidine HCl [Zantac] 150 mg PO BID #30 tab 01/25/18 [Rx] Follow up Appointment(s)/Referral(s): Lisandro Echeverria III, MD [Primary Care Provider] - 1 Week (Patient states he already has appt made) Patient Instructions/Handouts: Ranitidine (By mouth), Naproxen (By mouth), Amoxicillin/Clavulanate Potassium (By mouth), Insulin Aspart Protamine/Insulin Aspart (By injection), Abscess (GEN), Diabetic Hyperglycemia (DC) Discharge Disposition: HOME SELF-CARE
== END 2018-01-25 10:30 | disposition home or self-care (01) | DRG 728 ==
LOC: EC 20:12 → 5MS5E 22:23
PROVIDERS: ADMIT Internal Medicine; ATTEND Internal Medicine
PROC: 0V95XZX Drainage of Scrotum, External Approach, Diagnostic (ICD-10-PCS; principal; 2018-01-23)
DX: N49.2 Inflammatory disorders of scrotum (principal); E11.42 Type 2 diabetes mellitus with diabetic polyneuropathy; E11.51 Type 2 diabetes mellitus with diabetic peripheral angiopathy without gangrene; I11.0 Hypertensive heart disease with heart failure; I50.9 Heart failure, unspecified; E11.65 Type 2 diabetes mellitus with hyperglycemia; I25.10 Atherosclerotic heart disease of native coronary artery without angina pectoris; M17.11 Unilateral primary osteoarthritis, right knee; M54.9 Dorsalgia, unspecified; E78.5 Hyperlipidemia, unspecified; I25.2 Old myocardial infarction; G89.29 Other chronic pain; F40.240 Claustrophobia; M48.00 Spinal stenosis, site unspecified; Z79.02 Long term (current) use of antithrombotics/antiplatelets; Z79.82 Long term (current) use of aspirin; Z79.4 Long term (current) use of insulin; Z79.899 Other long term (current) drug therapy; Z90.49 Acquired absence of other specified parts of digestive tract; Z95.1 Presence of aortocoronary bypass graft; Z95.5 Presence of coronary angioplasty implant and graft; Z98.42 Cataract extraction status, left eye; Z98.41 Cataract extraction status, right eye; Z87.891 Personal history of nicotine dependence; Z83.3 Family history of diabetes mellitus; Z82.49 Family history of ischemic heart disease and other diseases of the circulatory system
CPT/HCPCS: 36415; 76870; 80048; 80053; 80202; 81003; 83036; 83605; 85025; 85610; 85730; 87040; 87070; 87075; 87077; 87186; 87205; 93975; 96365; 96375; 99284

== ENCOUNTER 2018-02-14 10:58 | Day surgery (SDC) | payer MEDICARE, OTHER ==
[2018-02-12 11:32] VITALS: BMI 42.0
[~2018-02-14 10:58] MED LIST changes: +ALPRAZolam 0.25 MG TAB PO PRN; +ASPIRIN 325 MG TAB PO STA
[2018-02-14] MEDS ORDERED: ASPIRIN 81 MG ONE (12:01)
[2018-02-14] MEDS ORDERED: MIDAZOLAM 2 MG/2 ML VIAL IV ONE (13:05)
[2018-02-14] MEDS ORDERED: LIDOCAINE 2% INJ 20 MG/ML SQ ONE (13:07)
[2018-02-14] MEDS ORDERED: HEPARIN SODIUM 1,000 UN/ML (10ML VL) IV ONE (13:10)
[2018-02-14] MEDS: fentaNYL (PF) 50 MCG/ML 2 ML AMP IV ONE ×2 (13:15→14:13)
[2018-02-14] MEDS ORDERED: NITROGLYCERIN 1000MCG/10ML SYRINGE INTRAARTER ONE (14:47)
[2018-02-14] MEDS ORDERED: niCARdipine Syringe (1,000 mcg/10 mL) INTRAARTER ONE (14:48)
[2018-02-14] MEDS ORDERED: IOPAMIDOL-250 50ML BTL INTRAARTER ONE (14:50)
[2018-02-14] MEDS ORDERED: IOPAMIDOL-250 100ML BTL INJ ONE (14:50)
[2018-02-14] MEDS ORDERED: CLOPIDOGREL 75 MG TAB PO ONE ×2 (14:55)
[2018-02-14] MEDS ORDERED: NITROGLYCERIN SL TABS 0.4 MG TAB SUBLINGUAL PRN (15:03)
[2018-02-14] MEDS ORDERED: LORazepam 1 MG TAB PO PRN (15:03)
[2018-02-14] MEDS ORDERED: NAPROXEN 250 MG TAB PO PRN (15:03)
[2018-02-14] MEDS ORDERED: SODIUM CHLORIDE 0.9% 1,000 ML IV SCH (15:15)
[2018-02-14] MEDS: HYDROcodone/APAP 10-325MG 1 EACH TAB PO PRN (15:18)
[2018-02-14 15:26] LABS: Glucose,Whole Blood 104 mg/dL (75-99)
--- NOTE | 2018-02-14 15:38 | IR ---
EXAMINATION TYPE: IR stent intravas non coronary DATE OF EXAM: 02/14/2018 COMPARISON: NONE HISTORY: Peripheral vascular occlusive disease. Fluoroscopy was provided to the referring clinician. See dictated report from cardiology.
[2018-02-14 17:08] LABS: Glucose,Whole Blood 190 mg/dL (75-99)
[2018-02-14 17:28] LABS: Basophils % (A) 1 %; Eosinophils # (A) 0.3 k/uL (0-0.7); Eosinophils % (A) 4 %; HCT 43.7 % (39.0-53.0); HGB 14.7 gm/dL (13.0-17.5); Lymphocytes # (A) 1.8 k/uL (1.0-4.8); Lymphocytes % (A) 26 %; MCH 30.2 pg (25.0-35.0); MCHC 33.7 g/dL (31.0-37.0); MCV 89.5 fL (80.0-100.0); Mean Platelet Volume 6.6; Monocytes # (A) 0.4 k/uL (0-1.0); Monocytes % (A) 6 %; Neutrophils # (A) 4.3 k/uL (1.3-7.7); Neutrophils % (A) 62 %; Platelet Count 208 k/uL (150-450); RBC 4.89 m/uL (4.30-5.90); RDW 14.3 % (11.5-15.5)
[2018-02-14 17:56] LABS: Anion Gap 11 mmol/L; Blood Urea Nitrogen 15 mg/dL (9-20); Calcium 8.6 mg/dL (8.4-10.2); Carbon Dioxide 31 mmol/L (22-30); Chloride 99 mmol/L (98-107); Glucose 215 mg/dL (74-99); Potassium 4.1 mmol/L (3.5-5.1); Sodium 141 mmol/L (137-145)
--- NOTE | 2018-02-14 18:52 | LTR ---
February 14, 2018 To: Dr. Echeverria Re: Epifanio Paez (51) Dear. Dr. Echeverria, Mr. Epifanio Paez underwent successful balloon angioplasty of the right femoral artery with good angiographic results and without any complication. I want to thank you for allowing me to participate in his care. Please do not hesitate to call if you have any question or concern. Sincerely, Emerson Chen MD [email or web address] / LINGN: [id number] /
[2018-02-14] MEDS: GABAPENTIN 300 MG CAP PO SCH ×2 (18:58→21:05)
--- NOTE | 2018-02-14 20:04 | PCN ---
PROCEDURE NOTE DATE OF SERVICE: 02/14/2018 PERFORMING PHYSICIAN: Emerson Chen MD, rn wound. PROCEDURE PERFORMED: 1. Selective right rplij-qmw-jphg angiogram. 2. Selective right popliteal and right SFA angiogram. 3. Selective left common femoral artery angiogram. 4. Atherectomy of the right SFA using the TurboHawk device with extraction of significant amount of plaque. 5. Successful balloon angioplasty of the mid right SFA. 6. Stenting of the proximal right SFA using the Zilver PTX 7.0 x 120 mm stent with good angiographic results. INDICATION: This is a pleasant 63-year-old gentleman who sees Dr. Rabago in the office as an outpatient who was experiencing bilateral lower extremity intermittent claudication and underwent an arterial duplex study that revealed severe bilateral SFA disease. He did undergo a peripheral angiogram a few weeks ago that revealed occluded right SFA and severe disease involving the left SFA. He was brought today to undergo an intervention of the right SFA. APPROACH: Left common femoral artery. COMPLICATIONS: None. LEVEL OF SEDATION: Moderate with sedation length of 1 hour and 50 minutes. PROCEDURE DESCRIPTION: After obtaining informed consent, the patient was brought to the cardiac laboratory technical specialist. The left common femoral artery was cannulated using micropuncture technique. The micropuncture wire passed easily. Then I placed a 6-Scottish sheath 11 cm in the left common femoral artery. After that anticoagulation was initiated using heparin and the patient was given 10,000 units of heparin IV. After that I selected the right profunda using a 5-Scottish RIM catheter with 0.035 Advantage wire. After that I exchanged my 11 cm 6-Scottish sheath for a 70 cm 6-Scottish sheath using the 0.035 Advantage wire. The tip of the sheath was positioned in the right common femoral artery. After that I did selective right gccwd-nrm-mnbw angiogram, right SFA angiogram, and right popliteal angiogram as well. After that I crossed the chronic total occlusion in the right SFA using an 0.018 and 0.014 wire. After that I placed a filter in the right popliteal for distal protection. Subsequently I did atherectomy of the right SFA using the TurboHawk device. Then I did balloon angioplasty using 6 mm balloon. The following angiogram showed severe residual stenosis involving the proximal right SFA and mild disease involving the mid right SFA. After that of the mid right SFA using the Impact balloon which was a 6 mm x 150 mm balloon which was inflated under its nominal pressure for 3 minutes. The following angiogram showed good angiographic results. For the proximal right SFA, I deployed a 7 x 120 mm Zilver PTX drug-coated stent where the stent was positioned under fluoroscopy guidance and deployed after that. The following angiogram showed excellent angiographic results after I post dilated the stent using 6 mm balloon. The procedure was completed without any complication. I exchanged my long cm sheath for an 11 cm sheath using the Advantage wire. After that I achieved hemostasis at the left groin using the Perclose device. The procedure was completed without any complication. POST-PROCEDURE MANAGEMENT: 1. Dual anti-platelet therapy. 2. Risk factor modifications. 3. Follow up with the patient. ADNIELLE / LINGN: [id number] /
[2018-02-14 20:51] LABS: Glucose,Whole Blood 287 mg/dL (75-99)
[2018-02-14] MEDS ORDERED: INSULIN DETEMIR 100 UNIT/ML 10 ML VIAL SQ SCH (21:00)
[2018-02-14] MEDS ORDERED: ATORVASTATIN 40 MG TAB PO SCH (21:00)
[2018-02-14] MEDS: INSULIN ASPART 100 UNIT/ML 1 ML 10 ML VIAL SQ SCH (21:05)
[2018-02-14] MEDS: METOPROLOL TARTRATE 50 MG TAB PO SCH (21:06)
[2018-02-15 06:18] LABS: Glucose,Whole Blood 272 mg/dL (75-99)
[2018-02-15 06:28] LABS: Basophils % (A) 1 %; Eosinophils # (A) 0.3 k/uL (0-0.7); Eosinophils % (A) 4 %; HCT 41.4 % (39.0-53.0); HGB 13.9 gm/dL (13.0-17.5); Lymphocytes # (A) 1.6 k/uL (1.0-4.8); Lymphocytes % (A) 24 %; MCH 30.2 pg (25.0-35.0); MCHC 33.6 g/dL (31.0-37.0); MCV 89.9 fL (80.0-100.0); Mean Platelet Volume 6.8; Monocytes # (A) 0.7 k/uL (0-1.0); Monocytes % (A) 11 %; Neutrophils # (A) 3.8 k/uL (1.3-7.7); Neutrophils % (A) 58 %; Platelet Count 190 k/uL (150-450); RBC 4.61 m/uL (4.30-5.90); RDW 14.4 % (11.5-15.5); WBC 6.5 k/uL (3.8-10.6)
[2018-02-15] MEDS: INSULIN ASPART 100 UNIT/ML 1 ML 10 ML VIAL SQ SCH (06:36)
[2018-02-15 06:47] LABS: Anion Gap 11 mmol/L; Calcium 8.3 mg/dL (8.4-10.2); Carbon Dioxide 28 mmol/L (22-30); Chloride 102 mmol/L (98-107); Glucose 256 mg/dL (74-99); Sodium 141 mmol/L (137-145)
[2018-02-15 06:51] LABS: Blood Urea Nitrogen 15 mg/dL (9-20); Potassium 4.2 mmol/L (3.5-5.1)
[2018-02-15 08:00] LABS: Glucose,Whole Blood 118 mg/dL (75-99)
[2018-02-15] MEDS: GABAPENTIN 300 MG CAP PO SCH (08:13)
[2018-02-15] MEDS: METOPROLOL TARTRATE 50 MG TAB PO SCH (08:14)
[2018-02-15 08:20] VITALS: BP 156/76; PULSE 68; RESP 16; TEMP 96.9
[2018-02-15] MEDS: HYDROcodone/APAP 10-325MG 1 EACH TAB PO PRN (08:31)
[2018-02-15] MEDS ORDERED: CLOPIDOGREL 75 MG TAB PO SCH (09:00)
[2018-02-15] MEDS ORDERED: HYDROCHLOROTHIAZIDE 12.5 MG CAP PO SCH (09:00)
[2018-02-15] MEDS ORDERED: ASPIRIN 81 MG PO SCH (09:00)
[2018-02-15] MEDS ORDERED: LISINOPRIL 10 MG TAB PO SCH (09:00)
--- NOTE | 2018-02-15 09:53 | DS ---
DISCHARGE SUMMARY DATE OF ADMISSION: 02/14/2018 DATE OF DISCHARGE: 02/15/2018 BRIEF HISTORY: This is a very pleasant 63-year-old gentleman who sees Dr. Rabago in the office as an outpatient who was experiencing bilateral lower extremities intermittent claudication interfering with his daily activities. No evidence of critical limb ischemia. No tissue loss and no resting pain. He underwent an arterial duplex study in the office and that revealed occluded right SFA and severe left SFA. 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 The patient was admitted to the hospital yesterday and underwent successful recanalization of the right superficial femoral artery with good angiographic results and without any complication. The procedure was performed from the left groin. On follow up with the patient today, he is doing good. The left groin which was the site access was soft and nontender without any significant bruises. The patient is going to be discharged home on dual antiplatelet therapy and I will follow up with the patient in the office in a week to schedule him to undergo a RADIOCHEMICAL TECHNICIAN of the left SFA. MMCELESTEL / IJN: [id number] /
== END 2018-02-15 09:26 | disposition home or self-care (01) ==
LOC: CATHCVL 10:58 → 6SEL 16:29 → CATHCVL 02-15 09:26
PROVIDERS: ATTEND Internal Medicine Interventional Cardiology
DX: I70.213 Atherosclerosis of native arteries of extremities with intermittent claudication, bilateral legs (principal); I25.10 Atherosclerotic heart disease of native coronary artery without angina pectoris; I10 Essential (primary) hypertension; E11.9 Type 2 diabetes mellitus without complications; E78.2 Mixed hyperlipidemia; Z95.5 Presence of coronary angioplasty implant and graft; Z95.1 Presence of aortocoronary bypass graft; Z82.49 Family history of ischemic heart disease and other diseases of the circulatory system; Z79.02 Long term (current) use of antithrombotics/antiplatelets; Z79.4 Long term (current) use of insulin; Z79.899 Other long term (current) drug therapy; Z87.891 Personal history of nicotine dependence
CPT/HCPCS: 37227; 80048 ×2; 85025 ×2; C1894 ×2; C1769 ×5; C1725; C1714; C1884; C2623; C1760; C1874; J2001; J2250; J3010; J1644; Q9966 ×2

== ENCOUNTER 2018-02-28 07:16 | Day surgery (SDC) | payer OTHER ==
[2018-02-23 11:19] VITALS: BMI 43.7
[2018-02-28] MEDS ORDERED: ASPIRIN 81 MG ONE (07:38)
[2018-02-28] MEDS ORDERED: ALPRAZolam 0.25 MG TAB ONE (07:39)
[2018-02-28 08:02] VITALS: RESP 18
[2018-02-28] MEDS ORDERED: SODIUM CHLORIDE 0.9% 1,000 ML IV ONE (08:02)
[2018-02-28 08:21] LABS: Glucose,Whole Blood 100 mg/dL (75-99)
[2018-02-28] MEDS: fentaNYL (PF) 50 MCG/ML 2 ML AMP IV ONE ×2 (08:47→09:39)
[2018-02-28] MEDS ORDERED: MIDAZOLAM 2 MG/2 ML VIAL IV ONE (08:47)
[2018-02-28] MEDS ORDERED: LIDOCAINE 2% SYG (PF) 100 MG/5 ML MISCELLANE ONE (08:47)
[2018-02-28] MEDS ORDERED: HEPARIN SODIUM 1,000 UN/ML (10ML VL) IV ONE (08:56)
[2018-02-28] MEDS ORDERED: ASPIRIN 325 MG TAB PO SCH (09:00)
[2018-02-28] MEDS ORDERED: CLOPIDOGREL 75 MG TAB PO ONE (09:47)
[2018-02-28] MEDS ORDERED: MORPHINE SULFATE 4 MG/ML SYRINGE IV ONE (09:51)
[2018-02-28] MEDS ORDERED: niCARdipine 25 MG/10 ML VIAL INTRAARTER ONE (09:54)
[2018-02-28] MEDS ORDERED: NITROGLYCERIN 1000MCG/10ML SYRINGE INTRAARTER ONE (09:56)
[2018-02-28] MEDS ORDERED: IOPAMIDOL-370 100ML BTL INJ ONE (09:57)
[2018-02-28] MEDS ORDERED: NITROGLYCERIN SL TABS 0.4 MG TAB SUBLINGUAL PRN (10:12)
[2018-02-28] MEDS ORDERED: LORazepam 1 MG TAB PO PRN (10:12)
[2018-02-28] MEDS ORDERED: NAPROXEN 250 MG TAB PO PRN (10:12)
[2018-02-28] MEDS ORDERED: SODIUM CHLORIDE 0.9% 1,000 ML IV SCH (10:15)
[2018-02-28] MEDS: HYDROcodone/APAP 10-325MG 1 EACH TAB PO PRN ×2 (10:25→22:46)
--- NOTE | 2018-02-28 11:24 | LTR ---
February 28, 2018 Re: Epifanio Paez Dear Dr. Echeverria: Mr. Epifanio Paez underwent successful balloon angioplasty of the left femoral artery with good angiographic results and without any complication. Thank you for allowing us to participate in his care and please do not hesitate to call if you have any question or concern. Sincerely, MD DANIELLE Palacios / CASEY: [id number] /
--- NOTE | 2018-02-28 12:00 | AN ---
ANGIOGRAPHY REPORT PERCUTANEOUS PERIPHERAL INTERVENTION DATE OF SERVICE: 02/28/2018 PERFORMING PHYSICIAN: Emerson Chen MD, five roll refiner batch mixer. PROCEDURE PERFORMED: 1. Selective left SFA angiogram. 2. Selective left popliteal angiogram. 3. Selective left vyjie-mtd-sooj angiogram. 4. An atherectomy of the left SFA using the orbital atherectomy device from [facility]. 5. Successful balloon angioplasty of the left SFA. 6. Successful stenting of the left SFA using 7 x 60 drug coated stent with good angiographic results. INDICATION: This is a pleasant 63-year-old gentleman who sees Dr. Rabago and Dr. Echeverria as an outpatient who was experiencing bilateral lower extremities intermittent claudication. He underwent a peripheral angiogram and that revealed occluded right SFA and severe disease involving the left SFA. He underwent successful stenting of the right SFA with good angiographic results and he was brought today to undergo a SKEIN YARD DRIER of the left SFA. APPROACH: Right common femoral artery. COMPLICATION: Small AV fistula which was sealed using the stent. LEVEL OF SEDATION: Moderate. PROCEDURE LENGTH: 81 minutes. PROCEDURE DESCRIPTION: After obtaining an informed consent, the patient was brought to cardiac mobile home laborer. The right common femoral artery was cannulated using micropuncture technique and the micropuncture wire passed easily then I placed a 6-Citizen [place] sheath 11 cm in the right common femoral artery. At that point, anticoagulation was initiated using heparin and the patient was given 10,000 units of heparin IV with ACT monitoring throughout the procedure. Subsequently I did select the left SFA using a 5-[place]izen [place] rim catheter with 0.035 Advantage wire. After that, I did exchange my 11 cm sheath into this into 55 cm 6- Citizen [place] Raabe sheath using the Advantage wire and the sheath was positioned in the left common femoral artery. At that point, I did selective left islej-qee-nxqd angiogram, selective left popliteal and left SFA angiogram. The angiogram revealed severe disease involving the left SFA and 2 vessel runoff below the knee on the left side. Subsequently I did cross the lesion in the left SFA using an 0.014 hydro XT wire. Then I did exchange my 0.014 hydro XT wire into 0.014 ViperWire using an 0.035 CXI catheter. I did that preparing for orbital atherectomy. Subsequently I did orbital atherectomy of the left SFA using the orbital atherectomy device from [facility] where I did that under low, medium, and high speed. Subsequently I did balloon angioplasty initially using 5 mm balloon which was a regular balloon and subsequently using 6 mm drug coated balloon. The following angiogram showed good angiographic results with reduction of stenosis from 70% to 80% to about 20% to 30%, but I did find that there was a small fistula and small non-flow limiting dissection. Because of that, I decided to cover the lesion with a stent so I did deploy 7 x 60 mm Zilver PTX drug coated stent where the stent was positioned under fluoroscopy guidance and deployed after that. Postdilated the stent using 6 mm balloon. The following angiogram showed good angiographic results and the procedure was completed without any complication. POSTPROCEDURE MANAGEMENT: 1. Dual antiplatelet therapy. 2. Surveillance Doppler of left SFA and if that showed high velocity down the line, the patient needs to have a stent of the left SFA. MMGUILLAUME / LINGN: [id number] /
[2018-02-28 16:32] LABS: Glucose,Whole Blood 293 mg/dL (75-99)
[2018-02-28] MEDS: CEPHALEXIN 500 MG CAP PO SCH ×2 (17:07→22:46)
[2018-02-28] MEDS: GABAPENTIN 300 MG CAP PO SCH ×2 (17:07→20:11)
[2018-02-28] MEDS: INSULIN ASPART 100 UNIT/ML 1 ML 10 ML VIAL SQ SCH ×2 (17:59→20:55)
[2018-02-28] MEDS: METOPROLOL TARTRATE 50 MG TAB PO SCH (20:11)
[2018-02-28 20:46] LABS: Glucose,Whole Blood 316 mg/dL (75-99)
[2018-02-28] MEDS ORDERED: ATORVASTATIN 40 MG TAB PO SCH (21:00)
[2018-02-28] MEDS ORDERED: INSULIN DETEMIR 100 UNIT/ML 10 ML VIAL SQ SCH (21:00)
[2018-03-01] MEDS: HYDROcodone/APAP 10-325MG 1 EACH TAB PO PRN ×2 (03:36→10:55)
[2018-03-01 06:27] LABS: Glucose,Whole Blood 247 mg/dL (75-99)
[2018-03-01] MEDS: INSULIN ASPART 100 UNIT/ML 1 ML 10 ML VIAL SQ SCH ×2 (06:46→13:04)
[2018-03-01] MEDS: GABAPENTIN 300 MG CAP PO SCH (08:35)
[2018-03-01] MEDS: CEPHALEXIN 500 MG CAP PO SCH (08:36)
[2018-03-01] MEDS: METOPROLOL TARTRATE 50 MG TAB PO SCH (08:36)
[2018-03-01] MEDS ORDERED: ASPIRIN 81 MG PO SCH (09:00)
[2018-03-01] MEDS ORDERED: HYDROCHLOROTHIAZIDE 12.5 MG CAP PO SCH (09:00)
[2018-03-01] MEDS ORDERED: CLOPIDOGREL 75 MG TAB PO SCH (09:00)
[2018-03-01] MEDS ORDERED: LISINOPRIL 10 MG TAB PO SCH (09:00)
--- NOTE | 2018-03-01 09:46 | IR ---
EXAMINATION TYPE: IR stent intravas non coronary DATE OF EXAM: 02/28/2018 COMPARISON: NONE HISTORY: Peripheral vascular occlusive disease. Fluoroscopy was provided to the referring clinician. See dictated report from cardiology.
[2018-03-01 12:10] LABS: Glucose,Whole Blood 242 mg/dL (75-99)
[2018-03-01 12:11] VITALS: BP 124/57; PULSE 65; TEMP 97.9
--- NOTE | 2018-03-01 14:25 | DS ---
DISCHARGE SUMMARY ADMISSION DATE: February 28, 2018. DISCHARGE DATE: March 01, 2018 BRIEF HISTORY: This is a pleasant 63-year-old gentleman who sees Dr. Rabago in the office as an outpatient who was admitted to the hospital yesterday and underwent successful atherectomy and balloon angioplasty as well as stenting of the left superficial femoral artery with good angiographic results. After the angioplasty, the patient was found to have a small AV fistula which was eliminated by stenting of the left SFA on short segment. On follow up with him today, he seems to be asymptomatic. The right groin which was the access site is soft without any discrete hematoma, but with mild tenderness. The patient is going to be discharged home on dual anti-platelet therapy and I am going to him in the office this coming Monday or Monday. DANIELLE / CASEY: [id number] /
== END 2018-03-01 13:34 ==
LOC: CATHCVL 07:16 → 6SEL 10:03 → CATHCVL 03-01 13:34
PROVIDERS: ATTEND Internal Medicine Interventional Cardiology
DX: I70.213 Atherosclerosis of native arteries of extremities with intermittent claudication, bilateral legs (principal); I77.0 Arteriovenous fistula, acquired; I25.10 Atherosclerotic heart disease of native coronary artery without angina pectoris; I11.9 Hypertensive heart disease without heart failure; Z87.891 Personal history of nicotine dependence; Z95.1 Presence of aortocoronary bypass graft; Z95.5 Presence of coronary angioplasty implant and graft; E78.2 Mixed hyperlipidemia; E11.9 Type 2 diabetes mellitus without complications; Z79.4 Long term (current) use of insulin; Z79.02 Long term (current) use of antithrombotics/antiplatelets; Z79.82 Long term (current) use of aspirin; Z79.899 Other long term (current) drug therapy
CPT/HCPCS: 37227; 85347; 82565; C1894 ×2; C1714; C1769 ×4; C2623; C1760; C1874; C1725; J2250; J2270; J2001; J3010; J1644; Q9967

== ENCOUNTER 2018-09-18 22:42 | Inpatient (IN) | payer OTHER, MEDICARE ==
[2018-09-19] MEDS ORDERED: HYDROmorphone 1 MG/ML 1 ML SYRINGE ONE ×2 (01:00)
[2018-09-19] MEDS ORDERED: ASPIRIN 81 MG ONE ×2 (01:00)
[2018-09-19] MEDS ORDERED: HEPARIN SOD,PORK IN 0.45% NACL PMX 25,000 UNIT/500 ML BAG IV ONE (01:00)
[2018-09-19] MEDS ORDERED: SODIUM CHLORIDE 0.9% 1,000 ML BAG ONE (01:00)
[2018-09-19] MEDS ORDERED: METOPROLOL TARTRATE 25 MG TAB ONE ×2 (01:00)
[2018-09-19] MEDS ORDERED: NITROGLYCERIN-D5W PMX 50 MG/250 ML BOTTLE IV ONE (01:00)
[2018-09-19] MEDS ORDERED: NITROGLYCERIN-D5W PMX 25 MG/250 ML BTL IV ONE (01:00)
[2018-09-19] MEDS ORDERED: INSULIN ASPART 100 UNIT/ML 1 ML 10 ML VIAL SQ ONE (01:00)
[2018-09-19] MEDS ORDERED: HEPARIN SODIUM,PORCINE 5,000 UNIT/ML 1 ML VIAL ONE ×2 (01:00)
[2018-09-19] MEDS ORDERED: NITROGLYCERIN OINT 1 INCH/GM PACKET TOPICAL ONE ×2 (01:00)
[2018-09-19] MEDS ORDERED: INSULIN REGULAR 100 UNIT/ML VIAL ONE (01:00)
[2018-09-19] MEDS ORDERED: HEPARIN SOD,PORK IN 0.45% NACL PMX 25,000 UNIT/250 ML BAG IV ONE (01:00)
[2018-09-19 06:39] LABS: Glucose,Whole Blood 236 mg/dL (75-99)
[2018-09-19 06:54] LABS: Creatine Kinase MB 4.5 ng/mL (0.0-2.4)
[2018-09-19 06:56] LABS: Basophils # (A) 0.1 k/uL (0-0.2); Basophils % (A) 1 %; Eosinophils # (A) 0.2 k/uL (0-0.7); Eosinophils % (A) 3 %; HCT 48.5 % (39.0-53.0); HGB 16.8 gm/dL (13.0-17.5); Lymphocytes # (A) 1.6 k/uL (1.0-4.8); Lymphocytes % (A) 22 %; MCH 31.2 pg (25.0-35.0); MCHC 34.6 g/dL (31.0-37.0); MCV 90.1 fL (80.0-100.0); Mean Platelet Volume 6.9; Monocytes # (A) 0.6 k/uL (0-1.0); Monocytes % (A) 8 %; Neutrophils # (A) 4.9 k/uL (1.3-7.7); Neutrophils % (A) 64 %; Platelet Count 208 k/uL (150-450); RBC 5.38 m/uL (4.30-5.90); RDW 13.7 % (11.5-15.5); WBC 7.6 k/uL (3.8-10.6)
[2018-09-19 06:58] LABS: Troponin I 0.221 ng/mL (0.000-0.034)
[2018-09-19 06:59] LABS: ALT 80 U/L (21-72); AST 68 U/L (17-59); Albumin 4.3 g/dL (3.5-5.0); Alkaline Phosphatase 110 U/L (38-126); Anion Gap 16 mmol/L; Blood Urea Nitrogen 17 mg/dL (9-20); Calcium 9.6 mg/dL (8.4-10.2); Carbon Dioxide 21 mmol/L (22-30); Chloride 103 mmol/L (98-107); Glucose 265 mg/dL (74-99); Potassium 4.9 mmol/L (3.5-5.1); Sodium 140 mmol/L (137-145); Total Bilirubin 0.7 mg/dL (0.2-1.3); Total Protein 7.7 g/dL (6.3-8.2)
[2018-09-19 07:05] LABS: D-Dimer 0.58 mg/L FEU (<0.60); Prothrombin Time 10.5 sec (9.0-12.0)
[2018-09-19 07:06] LABS: Partial Thromboplastin Time 63.6 sec (22.0-30.0)
[2018-09-19] MEDS ORDERED: MORPHINE SULFATE 4 MG/ML SYRINGE IV PRN (08:15)
[2018-09-19] MEDS ORDERED: HYDROmorphone 1 MG/ML 1 ML SYRINGE IV PRN (08:15)
[2018-09-19] MEDS ORDERED: NALOXONE 0.4 MG/ML 1 ML VIAL IV PRN (08:15)
[2018-09-19] MEDS ORDERED: ACETAMINOPHEN TAB 325 MG TAB PO PRN (08:15)
--- NOTE | 2018-09-19 08:20 | P.CRDCN ---
History of Present Illness Consult date: 09/19/18 History of present illness: This is a 63-year-old gentleman with history of ischemic heart disease with previous bypass surgery done in 2014. Patient had a FERGUSON graft to LAD, vein graft to RCA and also vein graft to the circumflex. In January 2017 patient had a cardiac catheterization and was found to have occlusion of the vein graft to the circumflex with patent FERGUSON graft to LAD and vein graft to the RCA. Patient had a significant lesion in the OM branch and also left main. Patient had stent placement of the left main and also the OM branch. Patient has been having intermittent left arm discomfort. Last night patient came with severe left arm pain associated with some shortness of breath. His EKG showed sinus rhythm with evidence of old anterolateral ME with T-wave inversion in the lateral leads. His troponins showed a mild elevation. Patient was treated with nitrates and also morphine with relief of pain. Patient is still having mild discomfort in the left arm. Patient is advised to have a cardiac catheterization for definitive diagnosis and further intervention. Dr. Rabago was informed about this patient was planning to do a cardiac catheterization. Meanwhile we'll continue to maximize medical therapy including heparin, antiplatelet agents, nitrates and beta blockers. Patient also had a history of peripheral vascular disease and had stent placement of the left superficial femoral Review of Systems As per the chart Past Medical History Past Medical History: Coronary Artery Disease (CAD), Chest Pain / Angina, Heart Failure, Diabetes Mellitus, Hyperlipidemia, Hypertension, Myocardial Infarction (ME), Osteoarthritis (OA), Vascular Disorder Additional Past Medical History / Comment(s): PAD, hx anemia, peripheral neuropathy, spinal stenosis, herniated disc, ddd disease in the lower back/ chronic back pain, retinal damage to his right eye Last Myocardial Infarction Date:: 2014 History of Any Multi-Drug Resistant Organisms: None Reported Past Surgical History: Cholecystectomy, Coronary Bypass/CABG, Heart Catheterization With Stent Additional Past Surgical History / Comment(s): 02/14/18 RIGHT FEM POP, PILONDIAL CYSTS REMOVED, LASER EYE SX RT EYE, POST OP PLEURAL EFFUSIONS-THORACENTESIS. quintuple bypass, BILAT CATARACTS REMOVED, 2 HEART STENTS. ABD AORTOGRAM . Past Anesthesia/Blood Transfusion Reactions: No Reported Reaction Additional Past Anesthesia/Blood Transfusion Reaction / Comment(s): CLAUSTROPHOBIA Date of Last Stent Placement:: 01/18/2017 Past Psychological History: No Psychological Hx Reported Smoking Status: Former smoker Past Alcohol Use History: Occasional Past Drug Use History: None Reported - Past Family History Brother(s) Family Medical History: Cancer Father Family Medical History: Coronary Artery Disease (CAD), Diabetes Mellitus Additional Family Medical History / Comment(s): CABG Mother Family Medical History: Coronary Artery Disease (CAD), Diabetes Mellitus Additional Family Medical History / Comment(s): CABG Medications and Allergies Home Medications Medication Instructions Recorded Confirmed Type Aspirin EC [Ecotrin Low Dose] 81 mg PO DAILY 07/06/15 09/19/18 History Gabapentin [Neurontin] 900 mg PO TID 06/18/16 09/19/18 History Hydrochlorothiazide 12.5 mg PO DAILY 06/18/16 09/19/18 History Lisinopril [Zestril] 10 mg PO DAILY #1 tab 06/20/16 09/19/18 Rx Insulin Aspart [NovoLOG Flexpen] See Protocol SQ ACHS 01/16/17 09/19/18 History Clopidogrel [Plavix] 75 mg PO DAILY #90 tab 01/19/17 09/19/18 Rx Nitroglycerin Sl Tabs [Nitrostat] 0.4 mg SUBLINGUAL Q5M PRN #25 tab 01/19/1705/30 Rx Atorvastatin [Lipitor] 40 mg PO HS 01/10/18 09/19/18 History Metoprolol Tartrate [Lopressor] 50 mg PO BID 01/10/18 09/19/18 History Insulin Glargine,Hum.rec.anlog 72 - 75 unit SQ HS 02/12/18 09/19/18 History [Lantus Solostar] Allergies Allergy/AdvReac Type Severity Reaction Status Date / Time No Known Allergies Allergy Verified 09/19/18 06:40 Physical Exam Vitals: Vital Signs Temp Pulse Resp BP Pulse Ox 09/19/18 07:00 101 H 14 136/72 97 09/19/18 06:45 97.7 F 100 18 136/72 96 09/19/18 06:36 102 H 24 09/19/18 06:20 106 H 20 123/63 99 09/19/18 05:04 106 H 16 110/73 94 L 09/18/18 22:44 97.4 F L 124 H 22 184/92 96 Intake and Output 09/18/18 09/19/18 09/19/18 22:59 06:59 14:59 Intake Total 23 Output Total 0 Balance 23 Intake: IV 23 0.9 20 nitro 3 Output: Urine 0 Other: Weight 140.614 kg GENERAL EXAM: Patient is alert and oriented and doesn't appear to be in mild distress HEENT: Normocephalic. Normal reaction of pupils, equal size, normal range of extraocular motion. No erythema or exudates in the throat. NECK: No masses, no nuchal rigidity. CHEST: No chest wall deformity. LUNGS: Equal air entry with no crackles or wheeze. Diminished breath sounds HEART: S1 and S2 normal with no audible mumurs or gallops. Regular rhythm,. ABDOMEN: No hepatosplenomegaly, normal bowel sounds, no guarding or rigidity. SKIN: No rashes CENTRAL NERVOUS SYSTEM: No focal deficits. EXTREMITIES: No cyanosis, clubbing or edema. Results 09/19/18 01:35 09/19/18 01:35 Cardiac Enzymes 09/19/18 09/19/18 Range/Units 01:35 01:35 AST 68 H (17-59) U/L CK-MB (CK-2) 4.5 H (0.0-2.4) ng/mL Troponin I 0.221 H* (0.000-0.034) ng/mL Coagulation 09/19/18 Range/Units 01:35 PT 10.5 (9.0-12.0) sec APTT 63.6 H (22.0-30.0) sec CBC 09/19/18 Range/Units 01:35 WBC 7.6 (3.8-10.6) k/uL RBC 5.38 (4.30-5.90) m/uL Hgb 16.8 (13.0-17.5) gm/dL Hct 48.5 (39.0-53.0) % Plt Count 208 (150-450) k/uL Comprehensive Metabolic Panel 09/19/18 Range/Units 01:35 Sodium 140 (137-145) mmol/L Potassium 4.9 (3.5-5.1) mmol/L Chloride 103 (98-107) mmol/L Carbon Dioxide 21 L (22-30) mmol/L BUN 17 (9-20) mg/dL Creatinine 0.72 (0.66-1.25) mg/dL Glucose 265 H (74-99) mg/dL Calcium 9.6 (8.4-10.2) mg/dL AST 68 H (17-59) U/L ALT 80 H (21-72) U/L Alkaline Phosphatase 110 (38-126) U/L Total Protein 7.7 (6.3-8.2) g/dL Albumin 4.3 (3.5-5.0) g/dL Intake and Output 09/18/18 09/19/18 09/19/18 22:59 06:59 14:59 Intake Total 23 Output Total 0 Balance 23 Intake: IV 23 0.9 20 nitro 3 Output: Urine 0 Other: Weight 140.614 kg 09/19/18 01:35 09/19/18 01:35 EKG Interpretations (text) Sinus rhythm with evidence of possible old anterolateral wall ME and T-wave inversions in the lateral leads Assessment and Plan (1) Non-STEMI (non-ST elevated myocardial infarction) Current Visit: Yes Status: Acute Code(s): I21.4 - NON-ST ELEVATION (NSTEMI) MYOCARDIAL INFARCTION SNOMED Code(s): 19930719 (2) Elevated troponin Current Visit: No Status: Acute Code(s): R79.89 - OTHER SPECIFIED ABNORMAL FINDINGS OF BLOOD CHEMISTRY SNOMED Code(s): 355929906 (3) HTN (hypertension) Current Visit: No Status: Acute Code(s): I10 - ESSENTIAL (PRIMARY) HYPERTENSION SNOMED Code(s): 98027118 (4) Hx of CABG Current Visit: No Status: Acute Code(s): Z95.1 - PRESENCE OF AORTOCORONARY BYPASS GRAFT SNOMED Code(s): 661472992 (5) Hyperlipemia Current Visit: No Status: Acute Code(s): E78.5 - HYPERLIPIDEMIA, UNSPECIFIED SNOMED Code(s): 64435582 Plan: Continue current medical therapy. Echocardiogram. I will discuss with the Dr. Rabago regarding possible cath and further intervention as needed.
[2018-09-19] MEDS ORDERED: HEPARIN SODIUM,PORCINE 5,000 UNIT/ML 1 ML VIAL IV PRN (08:25)
[2018-09-19] MEDS ORDERED: HEPARIN SOD,PORK IN 0.45% NACL 25,000 UNIT in 0.45% NACL 1 250ML.BAG IV SCH (08:30)
[2018-09-19] MEDS ORDERED: NITROGLYCERIN-D5W PMX 50 MG in DEXTROSE/WATER 1 250ML.BAG IV SCH (08:30)
[2018-09-19] MEDS ORDERED: METOPROLOL TARTRATE 25 MG TAB PO SCH (09:00)
[2018-09-19] MEDS ORDERED: ASPIRIN 325 MG TAB PO SCH (09:00)
[2018-09-19] MEDS ORDERED: ASPIRIN 325 MG TAB PO STA (09:01)
[2018-09-19] MEDS ORDERED: ALPRAZolam 0.5 MG TAB PO PRN (09:01)
[2018-09-19] MEDS ORDERED: SODIUM CHLORIDE 0.9% 1,000 ML in EMPTY BAG 1 BAG IV ONE (09:01)
[2018-09-19] MEDS ORDERED: ATORVASTATIN 80 MG TAB PO STA (09:01)
[2018-09-19] MEDS ORDERED: ALPRAZolam 0.25 MG TAB PO PRN (09:01)
[2018-09-19] MEDS ORDERED: NITROGLYCERIN SL TABS 0.4 MG TAB SUBLINGUAL PRN (09:01)
[2018-09-19] MEDS: SODIUM CHLORIDE 0.9% 1,000 ML IV SCH ×2 (09:16→16:12)
[2018-09-19] MEDS: PANTOPRAZOLE 40 MG/10 ML VIAL IV SCH (09:18)
[2018-09-19] MEDS ORDERED: traMADol 50 MG TAB PO PRN (11:50)
--- NOTE | 2018-09-19 12:10 | XR ---
EXAM: XR Chest, 1 View CLINICAL HISTORY: Left sided chest/arm pain TECHNIQUE: Frontal view of the chest. COMPARISON: No relevant prior studies available. FINDINGS: Lungs: Diminished lung volumes. The left hemidiaphragm is partially obscured and subsegmental changes at the left base are difficult to exclude on this portable exam. Mild diffuse interstitial prominence noted. Pleural space: Unremarkable. No pneumothorax. Heart: The cardiac silhouette is upper limits of normal in caliber and presumed accentuated by portable technique. Mediastinum: The trachea is midline. Bones/joints: Intact sternotomy wires noted. IMPRESSION: Diminished lung volumes with questionable subsegmental changes at the left base. This may represent atelectasis. Subtle infectious process is difficult to exclude on this portable, poorly inflated exam. Mild pulmonary vascular congestion versus pulmonary vascular crowding. No large pleural effusion or pneumothorax identified.
[2018-09-19] MEDS ORDERED: NITROGLYCERIN-D5W PMX 50 MG in DEXTROSE/WATER 1 250ML.BAG IV ONE (12:46)
[2018-09-19] MEDS ORDERED: IV FLUID CONTINUATION 1,000 ML IV ONE (12:46)
[2018-09-19] MEDS ORDERED: fentaNYL (PF) 50 MCG/ML 2 ML AMP IV ONE (12:46)
[2018-09-19] MEDS ORDERED: LIDOCAINE 1% INJ 10MG/ML (20 ML MDV) SQ ONE (12:49)
[2018-09-19] MEDS ORDERED: VERAPAMIL SYRINGE (5 MG/10 ML) INTRAARTER ONE (12:52)
[2018-09-19] MEDS ORDERED: MIDAZOLAM 2 MG/2 ML VIAL IV ONE (12:56)
[2018-09-19] MEDS ORDERED: IOPAMIDOL-370 125ML BTL INJ ONE (13:18)
[2018-09-19] MEDS ORDERED: RX INFO: IV CONTRAST WAS GIVEN 1 EACH MISC MISCELLANE PRN (13:35)
[2018-09-19] MEDS ORDERED: SODIUM CHLORIDE 0.9% 1,000 ML IV SCH (13:45)
--- NOTE | 2018-09-19 14:04 | CC ---
CARDIAC CATHETERIZATION REPORT Mr. Paez is a 63-year-old male with known history of coronary artery disease, status post bypass grafting, percutaneous revascularization, history of peripheral disease who has presented with symptoms of chest and arm discomfort and mild elevation of the troponin without EKG changes. In view of his symptoms and after evaluation by Dr. Garner, recommendation made regarding cardiac catheterization. The procedures, risks and complications were discussed with the patient who is in full understanding and agreement. PROCEDURE: Patient was brought to the phlebotomist medical lab assistant in a fasting semi-sedated state after receiving fentanyl and Benadryl and achieving moderate conscious sedated state. Using Xylocaine anesthesia and Seldinger technique, a 6-[place] sheath was introduced in the left radial artery. Selective right and left angiography performed using 5-[place] 4 bend right and left Gerard catheter, multiple views of the coronary artery including hemiaxial views were obtained. Following that a 6-[place] MARY LOU catheter was introduced and images of the FERGUSON was obtained. Following that, right Gerard was used to cannulate the saphenous vein graft to the right coronary artery. Following that, catheter and sheath were removed. Hemostasis was obtained with deployment of a TR band. There was no immediate complication. Patient is returned to his room in stable condition. Of note, patient received 5000 units of intravenous heparin. There was no immediate complication. FINDINGS: LEFT MAIN: This is a large-sized vessel, bifurcating into left circumflex, left anterior descending artery, left main coronary artery has a 20% plaque distally. The stent is patent without any evidence of significant stenosis. LEFT ANTERIOR DESCENDING ARTERY: This vessel has diffuse proximal disease with area of stenosis, 99%, subsequently is totally occluded, gives rise to a small diagonal branch that is diffusely diseased. LEFT CIRCUMFLEX: This is a nondominant vessel giving rise to a large first obtuse marginal branch. The first obtuse marginal branch stented segment is patent, has no evidence of significant restenosis with diffuse intimal disease without focal stenosis. The AV groove left circumflex is small caliber, has diffuse intimal disease. RIGHT CORONARY ARTERY: This vessel is totally occluded in mid segment without antegrade flow at the site of the prior stenting. SAPHENOUS VEIN GRAFT TO THE RIGHT CORONARY ARTERY: The proximal distal anastomotic site is patent. The flow into the right coronary artery is brisk. There is retrograde flow into the distal right coronary artery. FERGUSON TO LAD: The distal anastomotic site is patent. The flow into the LAD is brisk. There is no evidence of high-grade stenosis. CONCLUSION: 1. Severe triple-vessel coronary artery disease. 2. Patent stent to the left main and to the obtuse marginal branch. 3. Patent FERGUSON to LAD. 4. Patent saphenous vein graft to the right coronary artery. RECOMMENDATION: At this time, I will continue medical therapy with aggressive coronary risk modifications being initiated. Those findings and recommendation were discussed with the patient and his family who are in full understanding and agreement. MMODL / IJN: [id number] /
[2018-09-19] MEDS: GABAPENTIN 300 MG CAP PO SCH ×2 (16:15→21:28)
[2018-09-19] MEDS ORDERED: HYDROcodone/APAP 10-325MG 1 EACH TAB PO PRN (16:52)
--- NOTE | 2018-09-19 16:57 | P.HPIM ---
History of Present Illness 58-year-old male came in with the comments of chest pressure patient had a history of CABG in the past patient had elevated troponins patient had FERGUSON graft to LAD and vein graft to RCA to circumflex. Patient underwent radical catheterization showed triple-vessel disease although all the grafts are patent. There is some T-wave inversions in anterolateral leads because of which there was a concern about nondistended elevation microinfarction although there is no occlusion of any of the grafts. Patient presented with the epigastric burning sensation with radiating pain to the left arm denied any diaphoresis associated with that. Review of Systems REVIEW OF SYSTEMS: CONSTITUTIONAL: No fever, no malaise, no fatigue. HEENT: No recent visual problems or hearing problems. Denied any sore throat. CARDIOVASCULAR: No orthopnea, PND, no palpitations, no syncope. PULMONARY: No shortness of breath, no cough, no hemoptysis. GASTROINTESTINAL: No diarrhea, no nausea, no vomiting, no abdominal pain. NEUROLOGICAL: No headaches, no weakness, no numbness. HEMATOLOGICAL: Denies any bleeding or petechiae. GENITOURINARY: Denies any burning micturition, frequency, or urgency. MUSCULOSKELETAL/RHEUMATOLOGICAL: Denies any joint pain, swelling, or any muscle pain. ENDOCRINE: Denies any polyuria or polydipsia. The rest of the 14-point review of systems is negative. Past Medical History Past Medical History: Coronary Artery Disease (CAD), Chest Pain / Angina, Heart Failure, Diabetes Mellitus, Eye Disorder, Hyperlipidemia, Hypertension, Myocardial Infarction (HI), Osteoarthritis (OA), Vascular Disorder Additional Past Medical History / Comment(s): IDDM type II, neuropathy bilateral feet, retinal damage R eye with blurred vision and occasional eye pain , PAD, arthritis in multiple joints, spinal stenosis/herniated discs/DDD low back with chronic pain, anemia, post op pleural effusions with thoracentesis. Last Myocardial Infarction Date:: 2014 History of Any Multi-Drug Resistant Organisms: None Reported Past Surgical History: Cholecystectomy, Coronary Bypass/CABG, Heart Catheterization, Heart Catheterization With Stent Additional Past Surgical History / Comment(s): 2014 cabg-5 vessel, PCI with stents, aortagram with run offs, MIXING MACHINE TENDER CORK ROD and stent to R and L SFA, R eye laser surgery, pilonidal cystectomies, bilateral cataract removals/lens implants. Past Anesthesia/Blood Transfusion Reactions: No Reported Reaction Additional Past Anesthesia/Blood Transfusion Reaction / Comment(s): CLAUSTROPHOBIA-difficulty with MRI Date of Last Stent Placement:: 01/18/2017 Smoking Status: Former smoker - Past Family History Brother(s) Family Medical History: Cancer Father Family Medical History: Coronary Artery Disease (CAD), Diabetes Mellitus Additional Family Medical History / Comment(s): CABG. Father in his 80s Mother Family Medical History: Coronary Artery Disease (CAD), Diabetes Mellitus Additional Family Medical History / Comment(s): CABG. Mother in her 80s Medications and Allergies Home Medications Medication Instructions Recorded Confirmed Type Aspirin EC [Ecotrin Low Dose] 81 mg PO DAILY 07/06/15 09/19/18 History Gabapentin [Neurontin] 900 mg PO TID 06/18/16 09/19/18 History Hydrochlorothiazide 12.5 mg PO DAILY 06/18/16 09/19/18 History Lisinopril [Zestril] 10 mg PO DAILY #1 tab 06/20/16 09/19/18 Rx Insulin Aspart [NovoLOG Flexpen] See Protocol SQ ACHS 01/16/17 09/19/18 History Clopidogrel [Plavix] 75 mg PO DAILY #90 tab 01/19/17 09/19/18 Rx Nitroglycerin Sl Tabs [Nitrostat] 0.4 mg SUBLINGUAL Q5M PRN #25 tab 01/19/1705/30 Rx Atorvastatin [Lipitor] 40 mg PO HS 01/10/18 09/19/18 History Metoprolol Tartrate [Lopressor] 50 mg PO BID 01/10/18 09/19/18 History Insulin Glargine,Hum.rec.anlog 72 - 75 unit SQ HS 02/12/18 09/19/18 History [Lantus Solostar] HYDROcodone/APAP 10-325MG [[place] 1 tab PO Q6HR PRN 09/19/18 09/19/18 History 10-325] Allergies Allergy/AdvReac Type Severity Reaction Status Date / Time No Known Allergies Allergy Verified 09/19/18 06:40 Physical Exam Vitals: Vital Signs Temp Pulse Resp BP Pulse Ox 09/19/18 16:00 98.4 F 86 20 117/60 94 L 09/19/18 15:00 77 14 118/62 95 09/19/18 14:00 76 12 126/78 95 09/19/18 12:00 98 F 86 14 100/64 91 L 09/19/18 11:01 76 18 113/72 95 09/19/18 10:00 84 18 105/75 90 L 09/19/18 09:01 98.7 F 95 09/19/18 09:00 76 11 L 107/67 09/19/18 08:15 96 09/19/18 08:00 98.4 F 80 18 127/73 96 09/19/18 07:00 101 H 14 136/72 97 09/19/18 06:45 97.7 F 100 18 136/72 96 09/19/18 06:36 102 H 24 09/19/18 06:20 106 H 20 123/63 99 09/19/18 05:04 106 H 16 110/73 94 L 09/18/18 22:44 97.4 F L 124 H 22 184/92 96 Intake and Output 09/19/18 09/19/18 09/19/18 06:59 14:59 22:59 Intake Total 727.487 200 Output Total 0 Balance 727.487 200 Intake: IV 721 200 0.9 40 Sodium Chloride 0.9% 1, 200 000 ml @ 100 mls/hr IV . Q10H LEVY Rx#:[id number] Sodium Chloride 0.9% 1, 625 000 ml @ 125 mls/hr IV . Q8H LEVY Rx#:[id number] nitro 3 Intake, IV Titration 6.487 Amount Heparin Sod,Pork in 0.45% 6.487 NaCl 25,000 unit In 0.45 % NaCl 1 250ml.bag @ 7.1 UNITS/KG/HR 9.98 mls/hr IV .Q24H LEVY Rx#: [id number] Output: Urine 0 Other: Voiding Method Urinal # Voids 1 1 Weight 140 kg PHYSICAL EXAMINATION: GENERAL: The patient is alert and oriented x3, not in any acute distress. morbidly obese HEENT: Pupils are round and equally reacting to light. EOMI. No scleral icterus. No conjunctival pallor. Normocephalic, atraumatic. No pharyngeal erythema. No thyromegaly. CARDIOVASCULAR: S1 and S2 present. No murmurs, rubs, or gallops. PULMONARY: Chest is clear to auscultation, no wheezing or crackles. ABDOMEN: Soft, nontender, nondistended, normoactive bowel sounds. No palpable organomegaly. MUSCULOSKELETAL: No joint swelling or deformity. EXTREMITIES: No cyanosis, clubbing, or pedal edema. NEUROLOGICAL: Gross neurological examination did not reveal any focal deficits. SKIN: No rashes. Results CBC & Chem 7: 09/19/18 01:35 09/19/18 01:35 Labs: Abnormal Lab Results - Last 24 Hours (Table) 09/19/18 09/19/18 09/19/18 Range/Units 01:35 01:35 01:35 APTT 63.6 H (22.0-30.0) sec Carbon Dioxide 21 L (22-30) mmol/L Glucose 265 H (74-99) mg/dL POC Glucose (mg/dL) (75-99) mg/dL AST 68 H (17-59) U/L ALT 80 H (21-72) U/L CK-MB (CK-2) 4.5 H (0.0-2.4) ng/mL Troponin I 0.221 H* (0.000-0.034) ng/mL 09/19/18 09/19/18 Range/Units 06:35 08:14 APTT (22.0-30.0) sec Carbon Dioxide (22-30) mmol/L Glucose (74-99) mg/dL POC Glucose (mg/dL) 236 H (75-99) mg/dL AST (17-59) U/L ALT (21-72) U/L CK-MB (CK-2) (0.0-2.4) ng/mL Troponin I 1.320 H* (0.000-0.034) ng/mL Thrombosis Risk Factor Assmnt - Choose All That Apply Any of the Below Risk Factors Present?: Yes Each Factor Represents 1 point: Obesity (BMI >25) Other Risk Factors: Yes Each Risk Factor Represents 2 Points: Age 61-74 years Other congenital or acquired thrombophilia - If yes, enter type in comment: No Thrombosis Risk Factor Assessment Total Risk Factor Score: 3 Thrombosis Risk Factor Assessment Level: Moderate Risk Assessment and Plan Plan: possible non-ST elevation microinfarction: Patient the underwent the cardiac catheterization which showed triple-vessel disease and with patent stents medical therapy is recommended. -Hypertension -Coronary artery disease with history of CABG -Hyperlipidemia -possibility of gastroesophageal reflux disease contributing to symptoms patient was started on Protonix -Peripheral vascular disease. -Type 2 diabetes mellitus patient will be resumed on his home regimen and the titrate his regimen depending on blood sugars here and requirement of as needed insulin -Diabetic peripheral neuropathy and -Diabetic retinopathy
[2018-09-19 20:06] LABS: Hemoglobin A1C 7.6 % (4.0-6.0)
[2018-09-19] MEDS: METOPROLOL TARTRATE 50 MG TAB PO SCH (20:06)
[2018-09-19] MEDS: ATORVASTATIN 40 MG TAB PO SCH (20:06)
[2018-09-19] MEDS: HYDROcodone/APAP 10-325MG 1 EACH TAB PO PRN (20:07)
[2018-09-19 20:26] LABS: Glucose,Whole Blood 351 mg/dL (75-99)
[2018-09-19] MEDS ORDERED: PRAVASTATIN SODIUM 40 MG TAB PO SCH (21:00)
[2018-09-19] MEDS ORDERED: INSULIN ASPART 100 UNIT/ML 1 ML 10 ML VIAL SQ SCH (21:00)
[2018-09-20] MEDS: SODIUM CHLORIDE 0.9% 1,000 ML IV SCH ×3 (00:04→16:15)
[2018-09-20 01:20] LABS: Glucose,Whole Blood 306 mg/dL (75-99)
[2018-09-20] MEDS: INSULIN ASPART 100 UNIT/ML 1 ML 10 ML VIAL SQ SCH ×7 (01:28→21:23)
[2018-09-20 06:08] LABS: Basophils # (A) 0.1 k/uL (0-0.2); Basophils % (A) 1 %; Eosinophils # (A) 0.3 k/uL (0-0.7); Eosinophils % (A) 6 %; HCT 44.5 % (39.0-53.0); Lymphocytes # (A) 1.5 k/uL (1.0-4.8); Lymphocytes % (A) 28 %; MCH 30.8 pg (25.0-35.0); MCHC 33.7 g/dL (31.0-37.0); MCV 91.3 fL (80.0-100.0); Mean Platelet Volume 6.8; Monocytes # (A) 0.4 k/uL (0-1.0); Monocytes % (A) 8 %; Neutrophils # (A) 2.8 k/uL (1.3-7.7); Neutrophils % (A) 53 %; Platelet Count 175 k/uL (150-450); RBC 4.87 m/uL (4.30-5.90); RDW 13.7 % (11.5-15.5); WBC 5.3 k/uL (3.8-10.6)
[2018-09-20 06:24] LABS: Anion Gap 7 mmol/L; Blood Urea Nitrogen 13 mg/dL (9-20); Calcium 8.6 mg/dL (8.4-10.2); Carbon Dioxide 28 mmol/L (22-30); Chloride 102 mmol/L (98-107); Glucose 247 mg/dL (74-99); Magnesium 1.7 mg/dL (1.6-2.3); Potassium 4.3 mmol/L (3.5-5.1); Sodium 137 mmol/L (137-145)
[2018-09-20 07:02] LABS: Glucose,Whole Blood 239 mg/dL (75-99)
[2018-09-20] MEDS: PANTOPRAZOLE 40 MG/10 ML VIAL IV SCH ×2 (08:34→08:43)
[2018-09-20] MEDS: HYDROcodone/APAP 10-325MG 1 EACH TAB PO PRN ×3 (08:34→22:27)
[2018-09-20] MEDS: LISINOPRIL 10 MG TAB PO SCH (08:35)
[2018-09-20] MEDS: HYDROCHLOROTHIAZIDE 12.5 MG CAP PO SCH (08:35)
[2018-09-20] MEDS: CLOPIDOGREL 75 MG TAB PO SCH (08:35)
[2018-09-20] MEDS: ISOSORBIDE MONONITRATE ER 30 MG TAB.ER.24H PO SCH (08:35)
[2018-09-20] MEDS: GABAPENTIN 300 MG CAP PO SCH ×3 (08:35→21:15)
[2018-09-20] MEDS: METOPROLOL TARTRATE 50 MG TAB PO SCH ×2 (08:35→21:15)
[2018-09-20] MEDS: ASPIRIN 81 MG PO SCH (08:35)
[2018-09-20] MEDS ORDERED: ASPIRIN 325 MG TAB PO SCH (09:00)
[2018-09-20 11:44] LABS: Glucose,Whole Blood 271 mg/dL (75-99)
--- NOTE | 2018-09-20 12:52 | PN ---
PROGRESS NOTE Epifanio is a 63-year-old gentleman that is admitted to hospital with non ST-segment elevation [place]. Underwent cardiac catheterization and was advised medical therapy. This morning, patient is comfortable at rest. Has not had any episodes of chest pain. He is currently on aspirin, Lipitor, Plavix, HydroDIURIL, Imdur, Zestril, Lopressor. On exam, patient is comfortable at rest. Vital signs are stable. There is no jugular venous distention. Chest exam reveals good air entry bilaterally. Heart exam reveals first and second heart sounds. No gallop. Exam of extremities did not reveal any edema. LABS: Show a hemoglobin of 15, platelet count is 175, creatinine is 0.6. ASSESSMENT: Non ST-segment elevation myocardial infarction, status post catheterization and advised medical therapy. Will ambulate him and hopefully can be discharged home tomorrow. MMCELESTEL / LINGN: [id number] /
--- NOTE | 2018-09-20 14:25 | P.PN ---
Subjective 63-year-old admitted with chest pain underwent cardiac catheterization which appears to triple vessel disease medical management is being recommended patient doesn't have any more chest pain cardiology is recommending monitoring 1 more day and echocardiogram. Constitutional: Denied any fatigue denied any fever. Cardio vascular: denied any chest pain, palpitations Gastrointestinal denied any nausea vomiting Pulmonary: Denied any shortness of breath cough Neurologic denied any new focal deficits All inpatient medications were reviewed and appropriate changes in these medications as dictated in the interval history and assessment and plan. Objective - Vital Signs Vital signs: Vital Signs Temp 97.6 F 09/20/18 12:00 Pulse 64 09/20/18 14:00 Resp 20 09/20/18 12:00 BP 133/70 09/20/18 12:00 Pulse Ox 91 L 09/20/18 12:00 Intake & Output 09/19/18 09/20/18 09/20/18 18:59 06:59 18:59 Intake Total 1127.487 200 Output Total 600 650 500 Balance 527.487 -450 -500 Weight 140 kg 139.4 kg Intake: IV 1121 200 0.9 40 Sodium Chloride 0.9% 1, 400 200 000 ml @ 100 mls/hr IV . Q10H LEVY Rx#:[id number] Sodium Chloride 0.9% 1, 625 000 ml @ 125 mls/hr IV . Q8H LEVY Rx#:[id number] nitro 3 Intake, IV Titration 6.487 Amount Heparin Sod,Pork in 0.45% 6.487 NaCl 25,000 unit In 0.45 % NaCl 1 250ml.bag @ 7.1 UNITS/KG/HR 9.98 mls/hr IV .Q24H LEVY Rx#: [id number] Output: Urine 600 650 500 Other: Voiding Method Urinal Urinal Urinal # Voids 1 1 1 - Exam PHYSICAL EXAMINATION: GENERAL: The patient is alert and oriented x3, not in any acute distress. morbidly obese HEENT: Pupils are round and equally reacting to light. EOMI. No scleral icterus. No conjunctival pallor. Normocephalic, atraumatic. No pharyngeal erythema. No thyromegaly. CARDIOVASCULAR: S1 and S2 present. No murmurs, rubs, or gallops. PULMONARY: Chest is clear to auscultation, no wheezing or crackles. ABDOMEN: Soft, nontender, nondistended, normoactive bowel sounds. No palpable organomegaly. MUSCULOSKELETAL: No joint swelling or deformity. EXTREMITIES: No cyanosis, clubbing, or pedal edema. NEUROLOGICAL: Gross neurological examination did not reveal any focal deficits. SKIN: No rashes. - Labs CBC & Chem 7: 09/20/18 05:26 09/20/18 05:26 Labs: Abnormal Lab Results - Last 24 Hours (Table) 09/19/18 09/19/18 09/20/18 Range/Units 08:14 20:23 01:17 Creatinine (0.66-1.25) mg/dL Glucose (74-99) mg/dL POC Glucose (mg/dL) 351 H 306 H (75-99) mg/dL Hemoglobin A1c 7.6 H (4.0-6.0) % 09/20/18 09/20/18 09/20/18 Range/Units 05:26 06:47 11:41 Creatinine 0.63 L (0.66-1.25) mg/dL Glucose 247 H (74-99) mg/dL POC Glucose (mg/dL) 239 H 271 H (75-99) mg/dL Hemoglobin A1c (4.0-6.0) % Assessment and Plan Plan: possible non-ST elevation microinfarction: Patient the underwent the cardiac catheterization which showed triple-vessel disease and with patent stents medical therapy is recommended. -Hypertension -Coronary artery disease with history of CABG -Hyperlipidemia -possibility of gastroesophageal reflux disease contributing to symptoms patient was started on Protonix -Peripheral vascular disease. -Type 2 diabetes mellitus patient will be resumed on his home regimen and the titrate his regimen depending on blood sugars here and requirement of as needed insulin -Diabetic peripheral neuropathy and -Diabetic retinopathy
[2018-09-20 17:01] LABS: Glucose,Whole Blood 306 mg/dL (75-99)
[2018-09-20 21:10] LABS: Glucose,Whole Blood 368 mg/dL (75-99)
[2018-09-20] MEDS: INSULIN DETEMIR 100 UNIT/ML 10 ML VIAL SQ SCH (21:15)
[2018-09-20] MEDS: ATORVASTATIN 40 MG TAB PO SCH (21:15)
[2018-09-21 00:54] LABS: Glucose,Whole Blood 282 mg/dL (75-99)
[2018-09-21] MEDS: INSULIN ASPART 100 UNIT/ML 1 ML 10 ML VIAL SQ SCH ×8 (01:10→21:12)
[2018-09-21 06:52] LABS: Glucose,Whole Blood 260 mg/dL (75-99)
[2018-09-21] MEDS: PANTOPRAZOLE 40 MG TABLET PO SCH (06:55)
[2018-09-21] MEDS: HYDROcodone/APAP 10-325MG 1 EACH TAB PO PRN ×3 (06:55→22:47)
[2018-09-21] MEDS: LISINOPRIL 10 MG TAB PO SCH (07:56)
[2018-09-21] MEDS: ISOSORBIDE MONONITRATE ER 30 MG TAB.ER.24H PO SCH (07:56)
[2018-09-21] MEDS: GABAPENTIN 300 MG CAP PO SCH ×3 (07:56→21:13)
[2018-09-21] MEDS: CLOPIDOGREL 75 MG TAB PO SCH (07:56)
[2018-09-21] MEDS: ASPIRIN 81 MG PO SCH (07:57)
[2018-09-21] MEDS: HYDROCHLOROTHIAZIDE 12.5 MG CAP PO SCH (07:57)
[2018-09-21] MEDS: METOPROLOL TARTRATE 50 MG TAB PO SCH ×2 (07:57→21:13)
--- NOTE | 2018-09-21 09:36 | ECHOF ---
Referral Reason:chest pain MEASUREMENTS -------- HEIGHT: 180.3 cm WEIGHT: 139.3 kg BP: IVSd: 1.3 cm (0.6 - 1.1) LVIDd: 4.3 cm (3.9 - 5.3) LVPWd: 1.5 cm (0.6 - 1.1) IVSs: 1.6 cm LVIDs: 2.7 cm LVPWs: 1.7 cm Ao Diam: 3.3 cm (2.0 - 3.7) AV Cusp: 1.3 cm (1.5 - 2.6) LA Diam: 3.7 cm (2.7 - 3.8) MV EXCURSION: 14.013 mm (> 18.000) MV EF SLOPE: 79 mm/s (70 - 150) EPSS: 0.6 cm MV E Oscar: 0.73 m/s MV DecT: 202 ms MV A Oscar: 0.66 m/s MV E/A Ratio: 1.10 AV maxP.42 mmHg AV meanP.94 mmHg FINDINGS -------- Sinus rhythm. This was a technically difficult study with suboptimal views. The left ventricular size is normal. There is mild concentric left ventricular hypertrophy. Overa ll left ventricular systolic function is normal with, an EF between 55 - 60 %. The right ventricle is normal in size and function. The left atrium is normal in size. The right atrium is normal in size. Lumason used Aortic valve is trileaflet and is moderately thickened. There is moderate aortic stenosis present. Peak/mean gradient across the Aortic Valve is 46.42mmHg / 29.94mmHg. There is trace mitral regurgitation. Trace tricuspid regurgitation present. The right ventricular systolic pressure, as measured by Dopp ler, is {RVSP}. Pulmonic valve appears structurally normal. The pericardium is normal. CONCLUSIONS -------- 1. Sinus rhythm. 2. This was a technically difficult study with suboptimal views. 3. The left ventricular size is normal. 4. There is mild concentric left ventricular hypertrophy. 5. Overall left ventricular systolic function is normal with, an EF between 55 - 60 %. 6. The right ventricle is normal in size and function. 7. The left atrium is normal in size. 8. The right atrium is normal in size. 9. Lumason used 10. Aortic valve is trileaflet and is moderately thickened. 11. There is moderate aortic stenosis present. 12. Peak/mean gradient across the Aortic Valve is 46.42mmHg / 29.94mmHg. 13. There is trace mitral regurgitation. 14. Trace tricuspid regurgitation present. 15. The right ventricular systolic pressure, as measured by Doppler, is {RVSP}. 16. Pulmonic valve appears structurally normal. 17. The pericardium is normal. AUTO POLISHER: Sara Draper RDCS
[2018-09-21] MEDS ORDERED: ISOSORBIDE MONONITRATE ER 30 MG TAB.ER.24H PO STA (11:47)
[2018-09-21 12:09] LABS: Glucose,Whole Blood 250 mg/dL (75-99)
--- NOTE | 2018-09-21 13:08 | PN ---
PROGRESS NOTE The patient is admitted to hospital with non ST-segment elevation [place], underwent cardiac catheterization and was advised medical therapy. The patient has had subsequent chest pains. I started him on nitrates and increased the dose to 60 mg today. He had one episode of chest discomfort that did not last very long this morning. I asked him to ambulate today and hopefully we can discharge him home tomorrow. PHYSICAL EXAMINATION: On exam, comfortable at rest. Vital signs are stable. Chest exam reveals good air entry bilaterally. Heart exam reveals first and second heart sounds. No gallop. Abdomen is soft. Examination of extremities did not reveal any edema. Peripheral pulses are felt. DESKTOP MANAGER exam did not reveal focal neurological deficits. ASSESSMENT: Non ST-segment elevation myocardial infarction. PLAN: Patient is doing better, ambulate and possible discharge home tomorrow. MMODL / IJN: [id number] /
--- NOTE | 2018-09-21 14:32 | P.PN ---
Subjective 63-year-old admitted with chest pain underwent cardiac catheterization which appears to triple vessel disease medical management is being recommended patient doesn't have any more chest pain cardiology is recommending monitoring 1 more day and echocardiogram. 09/21/2018 Patient's had mild chest pain today because of which cardiology is recommending increasing dose of Imdur, will monitor him with increased dose Imdur. Constitutional: Denied any fatigue denied any fever. Cardio vascular: denied any chest pain, palpitations Gastrointestinal denied any nausea vomiting Pulmonary: Denied any shortness of breath cough Neurologic denied any new focal deficits All inpatient medications were reviewed and appropriate changes in these medications as dictated in the interval history and assessment and plan. Objective - Vital Signs Vital signs: Vital Signs Temp 97.4 F L 09/21/18 12:00 Pulse 64 09/21/18 12:00 Resp 20 09/21/18 12:00 BP 131/82 09/21/18 12:00 Pulse Ox 94 L 09/21/18 12:00 Intake & Output 09/20/18 09/21/18 09/21/18 18:59 06:59 18:59 Output Total 1150 500 Balance -1150 -500 Weight 145.3 kg Output: Urine 1150 500 Other: Voiding Method Urinal Urinal Toilet Urinal # Voids 2 1 - Exam PHYSICAL EXAMINATION: GENERAL: The patient is alert and oriented x3, not in any acute distress. morbidly obese HEENT: Pupils are round and equally reacting to light. EOMI. No scleral icterus. No conjunctival pallor. Normocephalic, atraumatic. No pharyngeal erythema. No thyromegaly. CARDIOVASCULAR: S1 and S2 present. No murmurs, rubs, or gallops. PULMONARY: Chest is clear to auscultation, no wheezing or crackles. ABDOMEN: Soft, nontender, nondistended, normoactive bowel sounds. No palpable organomegaly. MUSCULOSKELETAL: No joint swelling or deformity. EXTREMITIES: No cyanosis, clubbing, or pedal edema. NEUROLOGICAL: Gross neurological examination did not reveal any focal deficits. SKIN: No rashes. - Labs CBC & Chem 7: 09/20/18 05:26 09/20/18 05:26 Labs: Abnormal Lab Results - Last 24 Hours (Table) 09/20/18 09/20/18 09/21/18 Range/Units 16:42 20:54 00:50 POC Glucose (mg/dL) 306 H 368 H 282 H (75-99) mg/dL 09/21/18 09/21/18 Range/Units 06:49 11:43 POC Glucose (mg/dL) 260 H 250 H (75-99) mg/dL Assessment and Plan Plan: possible non-ST elevation microinfarction: Patient the underwent the cardiac catheterization which showed triple-vessel disease and with patent stents medical therapy is recommended. She had active chest pain today because of which are increasing the dose of him due to monitor him 1 more day. Chest pain- free patient will be discharged on 60 mg of him due to additionally with his present regimen. -Hypertension -Coronary artery disease with history of CABG -Hyperlipidemia -possibility of gastroesophageal reflux disease contributing to symptoms patient was started on Protonix -Peripheral vascular disease. -Type 2 diabetes mellitus patient will be resumed on his home regimen, patient' s blood sugars are elevated will increase of pre-meal insulin to 12 units from 5 minutes patient is on 70 units of long-acting insulin which will be continued -Diabetic peripheral neuropathy and -Diabetic retinopathy
[2018-09-21 16:54] LABS: Glucose,Whole Blood 277 mg/dL (75-99)
[2018-09-21] MEDS: INSULIN DETEMIR 100 UNIT/ML 10 ML VIAL SQ SCH (21:12)
[2018-09-21] MEDS: ATORVASTATIN 40 MG TAB PO SCH (21:16)
[2018-09-21 21:22] LABS: Glucose,Whole Blood 440 mg/dL (75-99)
[2018-09-22 01:36] LABS: Glucose,Whole Blood 310 mg/dL (75-99)
[2018-09-22] MEDS: INSULIN ASPART 100 UNIT/ML 1 ML 10 ML VIAL SQ SCH ×5 (01:36→13:00)
[2018-09-22 06:14] LABS: HCT 41.8 % (39.0-53.0); HGB 14.3 gm/dL (13.0-17.5); MCH 30.7 pg (25.0-35.0); MCHC 34.3 g/dL (31.0-37.0); MCV 89.6 fL (80.0-100.0); Mean Platelet Volume 6.9; Platelet Count 169 k/uL (150-450); RBC 4.67 m/uL (4.30-5.90); RDW 13.6 % (11.5-15.5); WBC 6.8 k/uL (3.8-10.6)
[2018-09-22 06:31] LABS: Anion Gap 6 mmol/L; Blood Urea Nitrogen 14 mg/dL (9-20); Calcium 8.8 mg/dL (8.4-10.2); Carbon Dioxide 30 mmol/L (22-30); Chloride 99 mmol/L (98-107); Glucose 257 mg/dL (74-99); Magnesium 1.5 mg/dL (1.6-2.3); Potassium 4.2 mmol/L (3.5-5.1); Sodium 135 mmol/L (137-145)
[2018-09-22 06:53] LABS: Glucose,Whole Blood 267 mg/dL (75-99)
[2018-09-22] MEDS ORDERED: Magnesium Replacement Protocol 1 EACH MISC MISCELLANE PRN (07:41)
[2018-09-22] MEDS ORDERED: ISOSORBIDE MONONITRATE ER 60 MG TAB.ER.24H PO SCH (09:00)
[2018-09-22] MEDS: CLOPIDOGREL 75 MG TAB PO SCH (09:21)
[2018-09-22] MEDS: MAGNESIUM SULFATE-D5W PMX 1 GM in DEXTROSE/WATER 1 100ML.BAG IVPB SCH ×2 (09:21→10:25)
[2018-09-22] MEDS: HYDROCHLOROTHIAZIDE 12.5 MG CAP PO SCH (09:21)
[2018-09-22] MEDS: METOPROLOL TARTRATE 50 MG TAB PO SCH (09:21)
[2018-09-22] MEDS: LISINOPRIL 10 MG TAB PO SCH (09:21)
[2018-09-22] MEDS: PANTOPRAZOLE 40 MG TABLET PO SCH (09:21)
[2018-09-22] MEDS: ASPIRIN 81 MG PO SCH (09:21)
[2018-09-22] MEDS: GABAPENTIN 300 MG CAP PO SCH (09:21)
[2018-09-22 10:39] VITALS: TEMP 97.9
[2018-09-22 12:13] LABS: Glucose,Whole Blood 330 mg/dL (75-99)
[2018-09-22 12:39] VITALS: BP 125/72; PULSE 71; RESP 16
--- NOTE | 2018-09-22 12:47 | PN ---
PROGRESS NOTE Chari is a 63-year-old gentleman who was admitted to hospital with non ST-segment elevation [place] and underwent cardiac catheterization and was advised medical therapy. This morning, he is doing well, free of symptoms. I reviewed his medications. On exam, he is comfortable at rest. Vital signs are stable. Chest exam reveals good air entry bilaterally. Heart exam reveals first and second heart sounds. No gallop. Exam of extremities did not reveal edema. Peripheral pulses are felt. Labs show a hemoglobin of 14.3, platelet count is 169, potassium is 4.2, creatinine is 0.76. ASSESSMENT: Non ST-segment elevation myocardial infarction, status post catheterization. Advised medical therapy. MMODL / IJN: [id number] /
[2018-09-22] MEDS ORDERED: INSULIN ASPART 100 UNIT/ML 1 ML 10 ML VIAL SQ ONE (13:07)
--- NOTE | 2018-09-22 13:16 | P.DS ---
Providers Date of admission: 09/19/18 04:15 Attending physician: Mike Ramey Consults: 09/19/18 08:21 Consult Physician Routine Consulting Provider: Aleisha Garner Consult Reason/Comments: chest pain Do you want consulting provider notified?: Yes Primary care physician: Lisandro Echeverria [facility] Course: 63-year-old admitted with chest pain underwent cardiac catheterization which appears to triple vessel disease medical management is being recommended patient doesn't have any more chest pain cardiology is recommending monitoring 1 more day and echocardiogram. 09/21/2018 Patient's had mild chest pain today because of which cardiology is recommending increasing dose of Imdur, will monitor him with increased dose Imdur. 09/22/2018 Patient is requesting 120 units of NovoLog for his blood sugars of 300. Which I believe is not appropriate and the patient is not a diabetic diet here. Patient need to be in diabetic diet and patient pre-meal insulin is being changed to 18 units with each meal insulin of tall units and patient can continue his Lantus patient is chest pain-free today after increasing the dose of Imdur. 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 Echeverria as an outpatient PHYSICAL EXAMINATION: GENERAL: The patient is alert and oriented x3, not in any acute distress. morbidly obese HEENT: Pupils are round and equally reacting to light. EOMI. No scleral icterus. No conjunctival pallor. Normocephalic, atraumatic. No pharyngeal erythema. No thyromegaly. CARDIOVASCULAR: S1 and S2 present. No murmurs, rubs, or gallops. PULMONARY: Chest is clear to auscultation, no wheezing or crackles. ABDOMEN: Soft, nontender, nondistended, normoactive bowel sounds. No palpable organomegaly. MUSCULOSKELETAL: No joint swelling or deformity. EXTREMITIES: No cyanosis, clubbing, or pedal edema. NEUROLOGICAL: Gross neurological examination did not reveal any focal deficits. SKIN: No rashes. Assessment and Plan Plan: possible non-ST elevation myocardial infarction: Patient the underwent the cardiac catheterization which showed triple-vessel disease and with patent stents medical therapy is recommended. -Hypertension -Coronary artery disease with history of CABG -Hyperlipidemia -possibility of gastroesophageal reflux disease contributing to symptoms patient was started on Protonix -Peripheral vascular disease. -Type 2 diabetes mellitus controlled blood sugars due to noncompliance with his diet. -Diabetic peripheral neuropathy and -Diabetic retinopathy Plan - Discharge Summary Discharge Rx Participant: Yes New Discharge Prescriptions: New Omeprazole [PriLOSEC] 40 mg PO -BRKFST #14 capsule. Insulin Aspart [NovoLOG (formulary)] 18 unit SQ TID-W/MEALS vial Isosorbide Mononitrate ER [Imdur] 60 mg PO DAILY tab.er.24h Continue Aspirin EC [Ecotrin Low Dose] 81 mg PO DAILY Gabapentin [Neurontin] 900 mg PO TID Hydrochlorothiazide 12.5 mg PO DAILY Lisinopril [Zestril] 10 mg PO DAILY #1 tab Insulin Aspart [NovoLOG Flexpen] See Protocol SQ ACHS Clopidogrel [Plavix] 75 mg PO DAILY #90 tab Nitroglycerin Sl Tabs [Nitrostat] 0.4 mg SUBLINGUAL Q5M PRN #25 tab PRN Reason: Chest Pain Atorvastatin [Lipitor] 40 mg PO HS Metoprolol Tartrate [Lopressor] 50 mg PO BID Insulin Glargine,Hum.rec.anlog [Lantus Solostar] 72 - 75 unit SQ HS HYDROcodone/APAP 10-325MG [[place] 10-325] 1 tab PO Q6HR PRN PRN Reason: Pain Discharge Medication List Aspirin EC [Ecotrin Low Dose] 81 mg PO DAILY 07/06/15 [History] Gabapentin [Neurontin] 900 mg PO TID 06/18/16 [History] Hydrochlorothiazide 12.5 mg PO DAILY 06/18/16 [History] Lisinopril [Zestril] 10 mg PO DAILY #1 tab 06/20/16 [Rx] Insulin Aspart [NovoLOG Flexpen] See Protocol SQ ACHS 01/16/17 [History] Clopidogrel [Plavix] 75 mg PO DAILY #90 tab 01/19/17 [Rx] Nitroglycerin Sl Tabs [Nitrostat] 0.4 mg SUBLINGUAL Q5M PRN #25 tab 01/19/17 [Rx ] Atorvastatin [Lipitor] 40 mg PO HS 01/10/18 [History] Metoprolol Tartrate [Lopressor] 50 mg PO BID 01/10/18 [History] Insulin Glargine,Hum.rec.anlog [Lantus Solostar] 72 - 75 unit SQ HS 02/12/18 [ History] HYDROcodone/APAP 10-325MG [[place] 10-325] 1 tab PO Q6HR PRN 09/19/18 [History] Omeprazole [PriLOSEC] 40 mg PO AC-BRKFST #14 capsule. 09/20/18 [Rx] Insulin Aspart [NovoLOG (formulary)] 18 unit SQ TID-W/MEALS vial 09/22/18 [Rx] Isosorbide Mononitrate ER [Imdur] 60 mg PO DAILY tab.er.24h 09/22/18 [Rx] Follow up Appointment(s)/Referral(s): Roger Rabago MD [STAFF PHYSICIAN] - 10/02/18 10:00 am Lisandro Echeverria III, MD [Primary Care Provider] - 1 Week (Please contact the patient Monday morning, 09/24/2018, to schedule a follow up appointment.) Activity/Diet/Wound Care/Special Instructions: [facility] will contact you regarding your cane and possible lift chair. Discharge Disposition: HOME SELF-CARE
[2018-09-22 16:01] VITALS: BMI 43.0
--- NOTE | 2018-09-25 07:37 | CDI ---
Pt has chronic diastolic heart failure. Documentation Clarification Form Date: 09/25/18 From: Jenise Deyvi Ce Shay, Watch Leader Hours-8:30 am & 5 pm M-Nikita Admit Date: 09/19/2018 4:15:00 AM Patient Name: Epifanio Paez Visit Number: [id number] Discharge Date: 09/22/2018 2:15:00 PM ATTENTION: The Clinical Documentation Specialists (CDI) and [facility] Coding Staff appreciate your assistance in clarifying documentation. Please respond to the clarification below the line at the bottom and electronically sign. The CDI & [facility] Coding staff will review the response and follow-up if needed. Please note: Queries are made part of the Legal Health Record. If you have any questions, please contact the author of this message via ITS. Dr. Aleisha Garner Heart failure is documented in the past medical history of the H&P and consult. History/Risk Factors: CAD, CABG/stents, HTN, NV VS/Pulse OX: P-124, R-22, O2 sat-96/94 BNP: none Echocardiogram Results: left ventricular size is normal, EF between 55-60% Chest X Ray: Mild pulmonary vascular congestion vs pulmonary vascular crowding. No large pleural effusion or pneumothorax identifed. Treatment: left heart cath w angiograms In your professional opinion, can you please clarify the type of CHF if known? Chronic Systolic Heart Failure Chronic Diastolic Heart Failure Chronic Systolic & Diastolic Heart Failure Unable to Determine Other, please specify MTDD
== END 2018-09-22 14:15 | disposition home or self-care (01) | DRG 281 ==
LOC: EC 22:42 → 2SICU 09-19 04:15
PROVIDERS: ADMIT Internal Medicine; ATTEND Internal Medicine
PROC: B2121ZZ Fluoroscopy of Single Coronary Artery Bypass Graft using Low Osmolar Contrast (ICD-10-PCS; 2018-09-19)
PROC: B2181ZZ Fluoroscopy of Left Internal Mammary Bypass Graft using Low Osmolar Contrast (ICD-10-PCS; 2018-09-19)
PROC: 4A023N7 Measurement of Cardiac Sampling and Pressure, Left Heart, Percutaneous Approach (ICD-10-PCS; 2018-09-19)
PROC: B2111ZZ Fluoroscopy of Multiple Coronary Arteries using Low Osmolar Contrast (ICD-10-PCS; principal; 2018-09-19 12:38)
DX: I21.4 Non-ST elevation (NSTEMI) myocardial infarction (principal); I50.32 Chronic diastolic (congestive) heart failure; I11.0 Hypertensive heart disease with heart failure; E11.51 Type 2 diabetes mellitus with diabetic peripheral angiopathy without gangrene; E11.42 Type 2 diabetes mellitus with diabetic polyneuropathy; E11.319 Type 2 diabetes mellitus with unspecified diabetic retinopathy without macular edema; I25.10 Atherosclerotic heart disease of native coronary artery without angina pectoris; E78.5 Hyperlipidemia, unspecified; I25.2 Old myocardial infarction; M48.00 Spinal stenosis, site unspecified; M19.90 Unspecified osteoarthritis, unspecified site; G89.29 Other chronic pain; M54.5 Low back pain; Z91.11 Patient's noncompliance with dietary regimen; Z79.82 Long term (current) use of aspirin; Z79.02 Long term (current) use of antithrombotics/antiplatelets; Z79.4 Long term (current) use of insulin; Z79.899 Other long term (current) drug therapy; Z87.891 Personal history of nicotine dependence; Z95.1 Presence of aortocoronary bypass graft; Z95.820 Peripheral vascular angioplasty status with implants and grafts; Z95.5 Presence of coronary angioplasty implant and graft; Z98.42 Cataract extraction status, left eye; Z98.41 Cataract extraction status, right eye; Z96.1 Presence of intraocular lens; Z82.49 Family history of ischemic heart disease and other diseases of the circulatory system; Z83.3 Family history of diabetes mellitus; Z90.49 Acquired absence of other specified parts of digestive tract
CPT/HCPCS: 36415; 71045; 80048; 80053; 82550; 82553; 83036; 83735; 84484; 85025; 85027; 85379; 85610; 85730; 93005; 93306; 93455; 99285

== ENCOUNTER → 2018-11-06 | Outpatient (CLI) | payer OTHER ==
--- NOTE | 2018-11-06 19:47 | CONS ---
CONSULTATION REASON FOR CONSULTATION: Sleep apnea. This is a 63-year-old male patient who is coming in upon the request of his nanny/household manager, as the patient is suspected to have obstructive sleep apnea. The patient has an extensive history of cardiac disease and has undergone previous bypass surgery and coronary intervention and stenting. His bypass surgery was done in 2014. He is known to have peripheral vascular disease, peripheral neuropathy secondary diabetes mellitus, hyperlipidemia and obesity. Since his cardiac surgery in 2014, the patient has been gaining weight; he has gained around 75 pounds. During this time the patient was involved in a divorce and the patient has not been coping well with life in general. His sleep quality has gradually gotten worse. He is currently retired without any commitments and he is going to bed late at around 2 a.m. He typically listens to shows on the radio. He sleeps on and off at night time and will ultimately get out of bed somewhere between 9:30 and 10 a.m. in the morning. On weekends he has the same sleep schedule. He snores. He has not been told whether he quits breathing, as the patient does not have a bed partner. He feels very tired and sleepy during the day, to the point where he takes on and off naps. Clinically he seems to be quite depressed because of his social situation and his ongoing medical problems. He has chronic back pain also which makes him quite uncomfortable during sleep. He does not fall asleep while driving. His current [place] score is 2. PAST MEDICAL HISTORY: 1. Obesity. 2. Diabetes mellitus. 3. Coronary artery disease with previous bypass surgery in 2015 and stenting. 4. Peripheral neuropathy. 5. Peripheral vascular disease. 6. Hyperlipidemia. 7. Chronic back pain. 8. History of depression. PAST SURGICAL HISTORY: Includes: 1. Coronary artery bypass surgery in 2014. 2. Cholecystectomy. 3. Previous cardiac catheterization. DRUG ALLERGIES: NOT KNOWN. OUTPATIENT MEDICATIONS: These are listed. The patient is on: 1. Lisinopril 10 mg p.o. daily. 2. Metoprolol 50 mg p.o. daily. 3. Lasix 20 mg p.o. daily. 4. Hydrochlorothiazide 12.5 mg p.o. daily. 5. Aspirin 81 mg p.o. daily. 6. Plavix 75 mg p.o. daily. 7. Lipitor 80 mg p.o. daily. 8. Insulin units 3 times a day. 9. Glargine insulin 70 units daily. 10. 20 mg p.o. daily. 11.Imdur 60 mg p.o. daily. 12.Alprostadil 20 mcg as needed. 13.Nitroglycerin 0.4 mg sublingually as needed. 14.Gabapentin 300 mg 3 times a day. SOCIAL HISTORY: He is an ex-smoker. No history of alcoholism. No history of IV drugs. FAMILY HISTORY: Negative for sleep apnea. REVIEW OF SYSTEMS: Twelve-point review of systems was done. Positive findings were all mentioned above in the history of present illness. Of significance is that the patient is quite depressed. He is tired and sleepy all the time. He has no issues with anxiety. He has no issues with claustrophobia. He has no issues with grinding of the teeth. He has chronic pain and some degree of restlessness in the lower extremities bilaterally. PHYSICAL EXAMINATION: His BP is 132/78, pulse 68, respiratory rate 20, temperature 98.4. Weight is 225, height 6 feet 0 inches. Neck size 20-1/2. [place] score is 2. GENERAL APPEARANCE: Obese, calm, comfortable. HEAD: Atraumatic, normocephalic. Neck is short, supple. There is crowding of posterior pharynx. Mallampati class IV. LUNGS: Clear to auscultation. Heart sounds are regular rate and rhythm. Normal S1, S2. No S3, S4. No murmurs. ABDOMEN: Soft, nontender. No organomegaly. EXTREMITIES: No edema. No cyanosis or clubbing. IMPRESSION: 1. Chronic hypersomnia. 2. Abnormal sleep hygiene measures with advanced sleep phase syndrome. 3. Possible obstructive sleep apnea, as the patient has loud snoring and typical anatomic features of obstructive sleep apnea in general. 4. Coronary artery disease with previous bypass surgery in 2015. 5. Peripheral neuropathy. 6. Peripheral vascular disease. 7. Hyperlipidemia. 8. Obesity. 9. Chronic back pain. 10.History of depression. PLAN: Will do a home sleep study. The patient claims that he is not going to be able to fall asleep at the sleep center. I gave him a home sleep study, and I should at least get some representation of his sleep in that home sleep testing and see if there is any sleep breathing disorder or significant nocturnal oxygen desaturation that needs to be further followed up and treated. I discussed issues related to sleep hygiene. Discussed issues related to his comorbidities. Obviously he is depressed and he needs to go back to his primary care physician for treatment of chronic depression. He needs counseling. He needs to implement good sleep hygiene measures. I will do a home sleep study and decide if treatment is needed. I am inclined to treat this patient only if he demonstrates a significant amount of sleep apnea, knowing that this patient is quite hesitant to utilize CPAP therapy in the future. MMCELESTEL / IJN: [id number] /
== END ==
LOC: SLEEP 14:41
PROVIDERS: ATTEND Internal Medicine Critical Care Medicine
DX: G47.10 Hypersomnia, unspecified (principal); I25.10 Atherosclerotic heart disease of native coronary artery without angina pectoris; G62.9 Polyneuropathy, unspecified; E78.5 Hyperlipidemia, unspecified; E66.9 Obesity, unspecified; G89.29 Other chronic pain; M54.9 Dorsalgia, unspecified; F32.9 Major depressive disorder, single episode, unspecified; Z99.89 Dependence on other enabling machines and devices; Z79.899 Other long term (current) drug therapy; Z79.82 Long term (current) use of aspirin; Z79.4 Long term (current) use of insulin; Z79.02 Long term (current) use of antithrombotics/antiplatelets; Z87.891 Personal history of nicotine dependence
CPT/HCPCS: 99211

== ENCOUNTER 2019-01-13 15:02 | Inpatient (IN) | payer OTHER, MEDICARE ==
[2019-01-13] MEDS ORDERED: MORPHINE SULFATE 4 MG/ML SYRINGE IVP STA ×2 (15:33→17:29)
[2019-01-13 15:50] LABS: Basophils # (A) 0.1 k/uL (0-0.2); Basophils % (A) 0 %; Eosinophils # (A) 0.1 k/uL (0-0.7); Eosinophils % (A) 1 %; HCT 47.5 % (39.0-53.0); HGB 15.7 gm/dL (13.0-17.5); Lymphocytes # (A) 1.5 k/uL (1.0-4.8); Lymphocytes % (A) 13 %; MCH 29.7 pg (25.0-35.0); MCHC 33.1 g/dL (31.0-37.0); MCV 89.6 fL (80.0-100.0); Mean Platelet Volume 7.1; Monocytes # (A) 0.8 k/uL (0-1.0); Monocytes % (A) 7 %; Neutrophils # (A) 8.9 k/uL (1.3-7.7); Neutrophils % (A) 76 %; Platelet Count 249 k/uL (150-450); Poikilocytosis Slight; RDW 14.6 % (11.5-15.5); WBC 11.8 k/uL (3.8-10.6)
--- NOTE | 2019-01-13 15:53 | ED ---
Abdominal Pain HPI - General Chief Complaint: Abdominal Pain Stated Complaint: Side pain Time Seen by Provider: 01/13/19 15:11 Source: patient, RN notes reviewed, old records reviewed Mode of arrival: wheelchair Limitations: no limitations - History of Present Illness Initial Comments: 64-year-old male presenting for evaluation of right lower quadrant abdominal pain. Pain is been present for the past one to 2 days. Pain is non-radiating. He denies dysuria or hematuria. Denies changes in his bowels. He has had some nausea without significant vomiting. Denies upper abdominal pain. Denies chest pain or dyspnea. Patient is previous surgical history of cholecystectomy. No reported diarrhea. Having normal bowel movements. No scrotal pain or swelling. No testicular pain - Related Data Home Medications Medication Instructions Recorded Confirmed Aspirin EC [Ecotrin Low Dose] 81 mg PO DAILY 07/06/15 01/13/19 Gabapentin [Neurontin] 900 mg PO TID 06/18/16 01/13/19 Hydrochlorothiazide 12.5 mg PO DAILY 06/18/16 01/13/19 Insulin Aspart [NovoLOG Flexpen] See Protocol SQ ACHS 01/16/17 01/13/19 Atorvastatin [Lipitor] 40 mg PO HS 01/10/18 01/13/19 Insulin Glargine,Hum.rec.anlog 72 - 75 unit SQ HS 02/12/18 01/13/19 [Lantus Solostar] HYDROcodone/APAP 10-325MG [[place] 1 tab PO Q6HR PRN 09/19/18 01/13/19 10-325] traMADol HCL [Ultram] 50 mg PO Q8H 01/13/19 01/13/19 Previous Rx's Medication Instructions Recorded Lisinopril [Zestril] 10 mg PO DAILY #1 tab 06/20/16 Clopidogrel [Plavix] 75 mg PO DAILY #90 tab 01/19/17 Nitroglycerin Sl Tabs [Nitrostat] 0.4 mg SUBLINGUAL Q5M PRN #25 tab 01/19/17 Omeprazole [PriLOSEC] 40 mg PO ERIN-LENA #14 capsule. 09/20/18 Isosorbide Mononitrate ER [Imdur] 60 mg PO DAILY tab.er.24h 09/22/18 Allergies Allergy/AdvReac Type Severity Reaction Status Date / Time No Known Allergies Allergy Verified 01/13/19 16:00 Review of Systems ROS Statement: Those systems with pertinent positive or pertinent negative responses have been documented in the HPI. ROS Other: All systems not noted in ROS Statement are negative. Past Medical History Past Medical History: Coronary Artery Disease (CAD), Chest Pain / Angina, Heart Failure, Diabetes Mellitus, Eye Disorder, Hyperlipidemia, Hypertension, Myocardial Infarction (NH), Osteoarthritis (OA), Vascular Disorder Additional Past Medical History / Comment(s): IDDM type II, neuropathy bilateral feet, retinal damage R eye with blurred vision and occasional eye pain, PAD, arthritis in multiple joints, spinal stenosis/herniated discs/DDD low back with chronic pain, anemia, post op pleural effusions with thoracentesis. Last Myocardial Infarction Date:: 2014 History of Any Multi-Drug Resistant Organisms: None Reported Past Surgical History: Cholecystectomy, Coronary Bypass/CABG, Heart Catheterization, Heart Catheterization With Stent Additional Past Surgical History / Comment(s): 2014 cabg-5 vessel, PCI with stents, aortagram with run offs, [employer] LECT[employer]ER and stent to R and L SFA, R eye laser surgery, pilonidal cystectomies, bilateral cataract removals/lens implants. Past Anesthesia/Blood Transfusion Reactions: No Reported Reaction Additional Past Anesthesia/Blood Transfusion Reaction / Comment(s): CLAUSTROPHOBIA-difficulty with MRI Date of Last Stent Placement:: 01/18/2017 Past Psychological History: No Psychological Hx Reported Smoking Status: Former smoker - Past Family History Brother(s) Family Medical History: Cancer Father Family Medical History: Coronary Artery Disease (CAD), Diabetes Mellitus Additional Family Medical History / Comment(s): CABG. Father in his 80s Mother Family Medical History: Coronary Artery Disease (CAD), Diabetes Mellitus Additional Family Medical History / Comment(s): CABG. Mother in her 80s General Exam Limitations: no limitations General appearance: alert, in no apparent distress Head exam: Present: atraumatic, normocephalic Eye exam: Present: normal appearance, PERRL ENT exam: Present: normal exam Neck exam: Present: normal inspection. Absent: tenderness, meningismus Respiratory exam: Present: normal lung sounds bilaterally. Absent: respiratory distress, wheezes Cardiovascular Exam: Present: regular rate, normal rhythm GI/Abdominal exam: Present: soft, tenderness (Focal right lower quadrant tenderness to palpation). Absent: distended, guarding, rebound Extremities exam: Present: normal inspection, normal capillary refill. Absent: pedal edema Neurological exam: Present: alert, oriented X3, CN II-XII intact. Absent: motor sensory deficit Psychiatric exam: Present: normal affect, normal mood Skin exam: Present: warm, dry, intact. Absent: cyanosis, diaphoretic Course Vital Signs 01/13/19 01/13/19 01/13/19 15:04 15:45 17:02 Temperature 98.7 F Pulse Rate 99 92 97 Respiratory 18 16 16 Rate Blood Pressure 147/75 111/60 123/71 O2 Sat by Pulse 96 94 L 94 L Oximetry 01/13/19 01/13/19 17:30 17:40 Temperature Pulse Rate 93 Respiratory 16 Rate Blood Pressure 111/59 O2 Sat by Pulse 94 L 97 Oximetry Medical Decision Making - Medical Decision Making 64-year-old male with right lower quadrant abdominal pain. Patient has significant tenderness on exam. No rebound or guarding. He has mild leukocytosis 11.8, stable hemoglobin, normal CMP urinalysis is negative. CT is performed, shows an ileus with no signs of obstruction at this time. Patient does report to loose bowel movements earlier today. Given multiple rounds of IV pain medication the emergency department without significant improvement in his pain. He will be admitted for pain control, Gen. surgery will be placed on consult. - Lab Data Result diagrams: 01/13/19 15:30 01/13/19 15:30 Lab Results 01/13/19 01/13/19 01/13/19 Range/Units 15:30 15:30 15:30 WBC 11.8 H (3.8-10.6) k/uL RBC 5.30 (4.30-5.90) m/uL Hgb 15.7 (13.0-17.5) gm/dL Hct 47.5 (39.0-53.0) % MCV 89.6 (80.0-100.0) fL MCH 29.7 (25.0-35.0) pg MCHC 33.1 (31.0-37.0) g/dL RDW 14.6 (11.5-15.5) % Plt Count 249 (150-450) k/uL Neutrophils % 76 % Lymphocytes % 13 % Monocytes % 7 % Eosinophils % 1 % Basophils % 0 % Neutrophils # 8.9 H (1.3-7.7) k/uL Lymphocytes # 1.5 (1.0-4.8) k/uL Monocytes # 0.8 (0-1.0) k/uL Eosinophils # 0.1 (0-0.7) k/uL Basophils # 0.1 (0-0.2) k/uL Poikilocytosis Slight PT (9.0-12.0) sec INR (<1.2) APTT (22.0-30.0) sec Sodium 137 (137-145) mmol/L Potassium 4.1 (3.5-5.1) mmol/L Chloride 98 (98-107) mmol/L Carbon Dioxide 31 H (22-30) mmol/L Anion Gap 8 mmol/L BUN 21 H (9-20) mg/dL Creatinine 0.96 (0.66-1.25) mg/dL Est GFR (CKD-EPI)AfAm >90 (>60 ml/min/1.73 sqM) Est GFR (CKD-EPI)NonAf 83 (>60 ml/min/1.73 sqM) Glucose 217 H (74-99) mg/dL Plasma Lactic Acid Irshi 1.7 (0.7-2.0) mmol/L Calcium 9.6 (8.4-10.2) mg/dL Total Bilirubin 0.8 (0.2-1.3) mg/dL AST 25 (17-59) U/L ALT 35 (21-72) U/L Alkaline Phosphatase 52 (38-126) U/L Total Protein 7.6 (6.3-8.2) g/dL Albumin 4.5 (3.5-5.0) g/dL Amylase 39 (30-110) U/L Lipase 101 (23-300) U/L Urine Color Urine Appearance (Clear) Urine pH (5.0-8.0) Ur Specific [place] (1.001-1.035) Urine Protein (Negative) Urine Glucose (UA) (Negative) Urine Ketones (Negative) Urine Blood (Negative) Urine Nitrite (Negative) Urine Bilirubin (Negative) Urine Urobilinogen (<2.0) mg/dL Ur Leukocyte Esterase (Negative) Urine RBC (0-5) /hpf Urine WBC (0-5) /hpf Amorphous Sediment (None) /hpf Hyaline Casts (0-2) /lpf Urine Mucus (None) /hpf 01/13/19 01/13/19 Range/Units 15:30 15:30 WBC (3.8-10.6) k/uL RBC (4.30-5.90) m/uL Hgb (13.0-17.5) gm/dL Hct (39.0-53.0) % MCV (80.0-100.0) fL MCH (25.0-35.0) pg MCHC (31.0-37.0) g/dL RDW (11.5-15.5) % Plt Count (150-450) k/uL Neutrophils % % Lymphocytes % % Monocytes % % Eosinophils % % Basophils % % Neutrophils # (1.3-7.7) k/uL Lymphocytes # (1.0-4.8) k/uL Monocytes # (0-1.0) k/uL Eosinophils # (0-0.7) k/uL Basophils # (0-0.2) k/uL Poikilocytosis PT 10.1 (9.0-12.0) sec INR 0.9 (<1.2) APTT 24.1 (22.0-30.0) sec Sodium (137-145) mmol/L Potassium (3.5-5.1) mmol/L Chloride (98-107) mmol/L Carbon Dioxide (22-30) mmol/L Anion Gap mmol/L BUN (9-20) mg/dL Creatinine (0.66-1.25) mg/dL Est GFR (CKD-EPI)AfAm (>60 ml/min/1.73 sqM) Est GFR (CKD-EPI)NonAf (>60 ml/min/1.73 sqM) Glucose (74-99) mg/dL Plasma Lactic Acid Rishi (0.7-2.0) mmol/L Calcium (8.4-10.2) mg/dL Total Bilirubin (0.2-1.3) mg/dL AST (17-59) U/L ALT (21-72) U/L Alkaline Phosphatase (38-126) U/L Total Protein (6.3-8.2) g/dL Albumin (3.5-5.0) g/dL Amylase (30-110) U/L Lipase (23-300) U/L Urine Color Yellow Urine Appearance Clear (Clear) Urine pH 5.5 (5.0-8.0) Ur Specific [place] 1.028 (1.001-1.035) Urine Protein 1+ H (Negative) Urine Glucose (UA) Trace H (Negative) Urine Ketones Negative (Negative) Urine Blood Negative (Negative) Urine Nitrite Negative (Negative) Urine Bilirubin Negative (Negative) Urine Urobilinogen 2.0 (<2.0) mg/dL Ur Leukocyte Esterase Negative (Negative) Urine RBC 1 (0-5) /hpf Urine WBC 1 (0-5) /hpf Amorphous Sediment Rare H (None) /hpf Hyaline Casts 53 H (0-2) /lpf Urine Mucus Few H (None) /hpf Disposition Clinical Impression: Abdominal pain, Ileus, Intractable abdominal pain Disposition: ADMITTED IP TO THIS [facility] Condition: Stable Is patient prescribed a controlled substance at d/c from ED?: No Referrals: Lisandro Echeverria III, MD [Primary Care Provider] - 1-2 days Decision to Admit Reason: Admit from EC Decision Date: 01/13/19 Decision Time: 17:46
[2019-01-13 15:56] LABS: INR 0.9 (<1.2); Partial Thromboplastin Time 24.1 sec (22.0-30.0); Prothrombin Time 10.1 sec (9.0-12.0)
[2019-01-13 16:01] LABS: ALT 35 U/L (21-72); AST 25 U/L (17-59); Albumin 4.5 g/dL (3.5-5.0); Alkaline Phosphatase 52 U/L (38-126); Amylase 39 U/L (30-110); Anion Gap 8 mmol/L; Blood Urea Nitrogen 21 mg/dL (9-20); Calcium 9.6 mg/dL (8.4-10.2); Carbon Dioxide 31 mmol/L (22-30); Chloride 98 mmol/L (98-107); Glucose 217 mg/dL (74-99); Lipase 101 U/L (23-300); Potassium 4.1 mmol/L (3.5-5.1); Sodium 137 mmol/L (137-145); Total Bilirubin 0.8 mg/dL (0.2-1.3); Total Protein 7.6 g/dL (6.3-8.2)
[2019-01-13 16:08] LABS: Amorphous Sediment,Urine Rare /hpf; Appearance,Urine Clear (Clear); Bilirubin,Urine Negative (Negative); Blood,Urine Negative (Negative); Color,Urine Yellow; Glucose,Urine (UA) Trace (Negative); Hyaline Casts,Urine 53 /lpf (0-2); Ketones,Urine Negative (Negative); Leukocyte Esterase,Urine Negative (Negative); Mucus,Urine Few /hpf; Nitrite,Urine Negative (Negative); PH, Urine 5.5 (5.0-8.0); Protein,Urine 1+ (Negative); RBC,Urine 1 /hpf (0-5); Specific Gravity,Urine 1.028 (1.001-1.035); WBC,Urine 1 /hpf (0-5)
--- NOTE | 2019-01-13 16:52 | CT ---
EXAMINATION TYPE: CT abdomen pelvis w con DATE OF EXAM: 01/13/2019 COMPARISON: None HISTORY: RLQ pain CT DLP: 69745.8 mGycm Automated exposure control for dose reduction was used. TECHNIQUE: Helical acquisition of images was performed from the lung bases through the pelvis. CONTRAST: Performed without Oral Contrast and with IV Contrast, patient injected with 100 mL of Isovue 300. FINDINGS: There is some pleural thickening at the lung bases. There is no pericardial effusion. Liver and splee n appear normal. There is no pancreatic mass. There are clips from cholecystectomy. Bile ducts are no t dilated. There is no adrenal mass. Kidneys show satisfactory contrast opacification. There is no hy dronephrosis. There is 3 cm cortical cyst posterior left kidney. There is no retroperitoneal adenopat hy. Bladder distends smoothly. There is no pelvic mass. There is no inguinal hernia. There is no mesenteric edema. There is no free air or ascites. There are some fluid-filled distal sma ll bowel loops. Appendix appears normal. Lumbar spine is intact. I see no bony destructive process. There is L5 spondylolysis without spondylo listhesis. There is some spinal stenosis at L3-4 due to facet arthropathy and posterior disc herniati on.. IMPRESSION: ATHEROSCLEROTIC VASCULAR DISEASE. THERE IS SOME FLUID-FILLED DISTAL SMALL BOWEL CONSISTENT WITH MILD ILEUS. I DO NOT SEE A MECHANICAL OBSTRUCTION. NORMAL APPENDIX. BILATERAL BASILAR PLEURAL THICKENING.
[2019-01-13] MEDS ORDERED: MORPHINE SULFATE 4 MG/ML SYRINGE IM STA (17:13)
[2019-01-13] MEDS ORDERED: ONDANSETRON 4 MG/2 ML VIAL IVP PRN (17:42)
[2019-01-13] MEDS ORDERED: NALOXONE 0.4 MG/ML 1 ML VIAL IV PRN (17:42)
[2019-01-13] MEDS ORDERED: NITROGLYCERIN SL TABS 0.4 MG TAB SUBLINGUAL PRN (18:13)
[2019-01-13] MEDS: SODIUM CHLORIDE 0.9% 1,000 ML IV SCH (19:51)
[2019-01-13] MEDS: DEXTROSE 5%-0.9% NACL 1,000 ML IV SCH (19:58)
[2019-01-13] MEDS: PANTOPRAZOLE 40 MG/10 ML VIAL IVP SCH (21:12)
[2019-01-13] MEDS: HEPARIN SODIUM,PORCINE 5,000 UNIT/ML 1 ML VIAL SQ SCH (21:13)
[2019-01-13] MEDS: GABAPENTIN 300 MG CAP PO SCH (21:13)
[2019-01-13] MEDS: ATORVASTATIN 40 MG TAB PO SCH (21:13)
[2019-01-13] MEDS: INSULIN DETEMIR (LEVEMIR) 100 UNIT/ML SYR SQ SCH (21:14)
[2019-01-13] MEDS: INSULIN ASPART (NovoLOG) 100 UNIT/ML VIAL SQ SCH (21:18)
[2019-01-13] MEDS: MORPHINE SULFATE 4 MG/ML SYRINGE IV PRN (21:23)
[2019-01-13 21:25] LABS: Glucose,Whole Blood 119 mg/dL (75-99)
[2019-01-14] MEDS: MORPHINE SULFATE 4 MG/ML SYRINGE IV PRN ×2 (02:22→10:53)
[2019-01-14 07:21] LABS: Glucose,Whole Blood 310 mg/dL (75-99)
[2019-01-14] MEDS: SODIUM CHLORIDE 0.9% 1,000 ML IV SCH ×2 (07:33→10:53)
[2019-01-14] MEDS: GABAPENTIN 300 MG CAP PO SCH ×3 (07:33→21:43)
[2019-01-14] MEDS: INSULIN ASPART (NovoLOG) 100 UNIT/ML VIAL SQ SCH ×4 (07:33→21:43)
[2019-01-14] MEDS: PANTOPRAZOLE 40 MG/10 ML VIAL IVP SCH ×2 (07:34→21:44)
[2019-01-14] MEDS: LISINOPRIL 10 MG TAB PO SCH (07:34)
[2019-01-14] MEDS: HEPARIN SODIUM,PORCINE 5,000 UNIT/ML 1 ML VIAL SQ SCH ×2 (07:34→21:44)
[2019-01-14] MEDS: ISOSORBIDE MONONITRATE ER 60 MG TAB.ER.24H PO SCH (07:34)
[2019-01-14] MEDS: ASPIRIN 81 MG PO SCH (07:40)
[2019-01-14] MEDS: DEXTROSE 5%-0.9% NACL 1,000 ML IV SCH (10:15)
[2019-01-14] MEDS: METOPROLOL TARTRATE 50 MG TAB PO SCH ×2 (10:53→21:43)
--- NOTE | 2019-01-14 11:28 | XR ---
EXAMINATION TYPE: XR chest 1V portable DATE OF EXAM: 01/14/2019 CLINICAL HISTORY: Difficulty breathing CHF progress study. TECHNIQUE: Single AP portable upright view of the chest is obtained. COMPARISON: Chest x-ray from September 19, 2018 FINDINGS: Exam is suboptimal due to portable technique and patient's large body habitus. Cardiomegal y and low lung volumes are redemonstrated. Post-CABG changes with mediastinal clips and sternal wires is again seen. There is bibasilar scarring and/or atelectasis. No new focal airspace opacity, pleura l effusion, or pneumothorax is present. Osseous structures are intact. IMPRESSION: Overall stable findings, chronic changes and cardiomegaly without acute pulmonary proce ss.
[2019-01-14 12:14] LABS: Glucose,Whole Blood 281 mg/dL (75-99)
[2019-01-14] MEDS: traMADol 50 MG TAB PO SCH ×2 (12:14→16:12)
--- NOTE | 2019-01-14 12:39 | P.GSCN ---
History of Present Illness Consult date: 01/14/19 Reason for Consult: ileus, abdominal pain Requesting physician: Moody Mixon History of present illness: CHIEF COMPLAINT: abdominal pain HISTORY OF PRESENT ILLNESS: 64-year-old male who presented to the emergency room with a chief complaint abdominal pain. Patient reports her pain right lower quadrant abdominal pain for the last 2-3 days. He reports nausea but denies episodes of emesis. Patient reports having 2 loose bowel movements yesterday and one today. Patient denies diarrhea or constipation prior to these episodes. Patient denies fever or chills at home. Patient does report completing Cologuard recently which he was told came back positive and his PCP recommended colonoscopy. Patient denies previous colonoscopy. Patient continues to have right lower quadrant abdominal pain rating 6/10. PAST MEDICAL HISTORY: See list. PAST SURGICAL HISTORY: See list. SOCIAL HISTORY: No illicit drug use. REVIEW OF SYSTEMS: CONSTITUTIONAL: Denies fever or chills. HEENT: Denies blurred vision, vision changes, or eye pain. Denies hemoptysis CARDIOVASCULAR: Denies chest pain or pressure. RESPIRATORY: No shortness of breath. GASTROINTESTINAL: Refer to HPI for pertinent findings HEMATOLOGIC: Denies bleeding disorders. GENITOURINARY: Denies any blood in urine. SKIN: Denies pruitis. Denies rash. PHYSICAL EXAM: VITAL SIGNS: Reviewed. GENERAL: Well-developed in no acute distress. HEENT: No sclera icterus. Extraocular movements grossly intact. Moist buccal mucosa. Head is atraumatic, normocephalic. ABDOMEN: Soft. Nondistended. Pain and tenderness upon palpation of right lower quadrant. NEUROLOGIC: Alert and oriented. Cranial nerves II through XII grossly intact. LABORATORY DATA: WBC 11.8. on admission. IMAGING: CT abdomen and pelvis: Some fluid filled distal small bowel consistent with mild ileus. No mechanical obstruction. Normal appendix. ASSESSMENT: 1. Right lower quadrant abdominal pain 2. Ileus PLAN: Case discussed with Dr. Lowe who will review CT scan and evaluate the patient this afternoon. NPO until evaluated by Dr. Lowe Nurse practitioner note has been reviewed by physician. Signing provider agrees with the documented findings, assessment, and plan of care. Past Medical History Past Medical History: Coronary Artery Disease (CAD), Chest Pain / Angina, Heart Failure, Diabetes Mellitus, Eye Disorder, Hyperlipidemia, Hypertension, Myocardial Infarction (RI), Osteoarthritis (OA), Vascular Disorder Additional Past Medical History / Comment(s): IDDM type II, neuropathy bilateral feet, retinal damage R eye with blurred vision and occasional eye pain, PAD, arthritis in multiple joints, spinal stenosis/herniated discs/DDD low back with chronic pain, anemia, post op pleural effusions with thoracentesis. Last Myocardial Infarction Date:: 2014 History of Any Multi-Drug Resistant Organisms: None Reported Past Surgical History: Cholecystectomy, Coronary Bypass/CABG, Heart Catheterization, Heart Catheterization With Stent Additional Past Surgical History / Comment(s): 2014 cabg-5 vessel, PCI with stents, aortagram with run offs, [employer] and stent to R and L SFA, R eye laser surgery, pilonidal cystectomies, bilateral cataract removals/lens implants. Past Anesthesia/Blood Transfusion Reactions: No Reported Reaction Additional Past Anesthesia/Blood Transfusion Reaction / Comm: CLAUSTROPHOBIA- difficulty with MRI Date of Last Stent Placement:: 01/18/2017 Past Psychological History: No Psychological Hx Reported Additional Psychological History / Comment(s): Pt resides alone. He is independent. He is retired. He is an [employer] . Smoking Status: Former smoker Past Alcohol Use History: Occasional Additional Past Alcohol Use History / Comment(s): STARTED SMOKING CIG AT AGE 15 1PPD,QUIT 2011. Past Drug Use History: None Reported - Past Family History Brother(s) Family Medical History: Cancer Father Family Medical History: Coronary Artery Disease (CAD), Diabetes Mellitus Additional Family Medical History / Comment(s): CABG. Father in his 80s Mother Family Medical History: Coronary Artery Disease (CAD), Diabetes Mellitus Additional Family Medical History / Comment(s): CABG. Mother in her 80s Medications and Allergies Home Medications Medication Instructions Recorded Confirmed Type Aspirin EC [Ecotrin Low Dose] 81 mg PO DAILY 07/06/15 01/13/19 History Gabapentin [Neurontin] 900 mg PO TID 06/18/16 01/13/19 History Hydrochlorothiazide 12.5 mg PO DAILY 06/18/16 01/13/19 History Lisinopril [Zestril] 10 mg PO DAILY #1 tab 06/20/16 01/13/19 Rx Insulin Aspart [NovoLOG Flexpen] See Protocol SQ ACHS 01/16/17 01/13/19 History Clopidogrel [Plavix] 75 mg PO DAILY #90 tab 01/19/17 01/13/19 Rx Nitroglycerin Sl Tabs [Nitrostat] 0.4 mg SUBLINGUAL Q5M PRN #25 tab 01/19/17 01/13/19 Rx Atorvastatin [Lipitor] 40 mg PO HS 01/10/18 01/13/19 History Insulin Glargine,Hum.rec.anlog 72 - 75 unit SQ HS 02/12/18 01/13/19 History [Lantus Solostar] HYDROcodone/APAP 10-325MG [[place] 1 tab PO Q6HR PRN 09/19/18 01/13/19 History 10-325] Omeprazole [PriLOSEC] 40 mg PO AC-BRKFST #14 capsule. 09/20/18 01/13/19 Rx Isosorbide Mononitrate ER [Imdur] 60 mg PO DAILY tab.er.24h 09/22/18 01/13/19 Rx Metoprolol Tartrate [Lopressor] 50 mg PO BID 01/13/19 01/13/19 History traMADol HCL [Ultram] 50 mg PO Q8H 01/13/19 01/13/19 History Allergies Allergy/AdvReac Type Severity Reaction Status Date / Time No Known Allergies Allergy Verified 01/13/19 16:00 Surgical - Exam Vital Signs Temp Pulse Resp BP Pulse Ox 98.7 F 99 18 147/75 96 01/13/19 15:04 01/13/19 15:04 01/13/19 15:04 01/13/19 15:04 01/13/19 15:04 Results - Labs 01/13/19 15:30 01/13/19 15:30 Abnormal Lab Results - Last 24 Hours (Table) 01/13/19 01/13/19 01/13/19 Range/Units 15:30 15:30 15:30 WBC 11.8 H (3.8-10.6) k/uL Neutrophils # 8.9 H (1.3-7.7) k/uL Carbon Dioxide 31 H (22-30) mmol/L BUN 21 H (9-20) mg/dL Glucose 217 H (74-99) mg/dL POC Glucose (mg/dL) (75-99) mg/dL Urine Protein 1+ H (Negative) Urine Glucose (UA) Trace H (Negative) Amorphous Sediment Rare H (None) /hpf Hyaline Casts 53 H (0-2) /lpf Urine Mucus Few H (None) /hpf 01/13/19 01/14/19 01/14/19 Range/Units 21:18 07:18 11:43 WBC (3.8-10.6) k/uL Neutrophils # (1.3-7.7) k/uL Carbon Dioxide (22-30) mmol/L BUN (9-20) mg/dL Glucose (74-99) mg/dL POC Glucose (mg/dL) 119 H 310 H 281 H (75-99) mg/dL Urine Protein (Negative) Urine Glucose (UA) (Negative) Amorphous Sediment (None) /hpf Hyaline Casts (0-2) /lpf Urine Mucus (None) /hpf Diabetes panel 01/13/19 Range/Units 15:30 Sodium 137 (137-145) mmol/L Potassium 4.1 (3.5-5.1) mmol/L Chloride 98 (98-107) mmol/L Carbon Dioxide 31 H (22-30) mmol/L BUN 21 H (9-20) mg/dL Creatinine 0.96 (0.66-1.25) mg/dL Glucose 217 H (74-99) mg/dL Calcium 9.6 (8.4-10.2) mg/dL AST 25 (17-59) U/L ALT 35 (21-72) U/L Alkaline Phosphatase 52 (38-126) U/L Total Protein 7.6 (6.3-8.2) g/dL Albumin 4.5 (3.5-5.0) g/dL Calcium panel 01/13/19 Range/Units 15:30 Calcium 9.6 (8.4-10.2) mg/dL Albumin 4.5 (3.5-5.0) g/dL Pituitary panel 01/13/19 Range/Units 15:30 Sodium 137 (137-145) mmol/L Potassium 4.1 (3.5-5.1) mmol/L Chloride 98 (98-107) mmol/L Carbon Dioxide 31 H (22-30) mmol/L BUN 21 H (9-20) mg/dL Creatinine 0.96 (0.66-1.25) mg/dL Glucose 217 H (74-99) mg/dL Calcium 9.6 (8.4-10.2) mg/dL Adrenal panel 01/13/19 Range/Units 15:30 Sodium 137 (137-145) mmol/L Potassium 4.1 (3.5-5.1) mmol/L Chloride 98 (98-107) mmol/L Carbon Dioxide 31 H (22-30) mmol/L BUN 21 H (9-20) mg/dL Creatinine 0.96 (0.66-1.25) mg/dL Glucose 217 H (74-99) mg/dL Calcium 9.6 (8.4-10.2) mg/dL Total Bilirubin 0.8 (0.2-1.3) mg/dL AST 25 (17-59) U/L ALT 35 (21-72) U/L Alkaline Phosphatase 52 (38-126) U/L Total Protein 7.6 (6.3-8.2) g/dL Albumin 4.5 (3.5-5.0) g/dL
[2019-01-14 16:41] LABS: Glucose,Whole Blood 238 mg/dL (75-99)
--- NOTE | 2019-01-14 16:44 | HP ---
HISTORY AND PHYSICAL DATE OF SERVICE: 01/14/2019 CHIEF COMPLAINT: Abdominal pain. HISTORY OF PRESENT ILLNESS: This 64-year-old gentleman with a past medical history of multiple medical problems, including CAD, history of CHF, diabetes mellitus, type 2, history of hyperlipidemia, hypertension, history of myocardial infarction, CAD, CABG and stent, being followed by Dr. Echeverria in the outpatient setting has been complaining of abdominal pain. For the last 2 days, the pain is situated in the right lower quadrant, is rather persistent in character, 10/10 in intensity. Patient [facility]. CT scan of the abdomen and pelvis showed some ileus. The patient is on intravenous morphine IV q.4 hours, with not much relief of the pain. The patient is being closely monitored at this time. Otherwise, the white count is also mildly elevated at 11.8. Blood sugar is also elevated at 310. There is no history of any fever, rigor or chills. No history of headache, loss of consciousness, seizures at this time. PAST MEDICAL HISTORY: 1. History of CAD, CABG, stent. 2. History of CHF. 3. History of diabetes mellitus, type 2. 4. History of hypertension. 5. History of myocardial infarction. 6. History of claustrophobia. HOME MEDICATIONS: 1. Lopressor 50 mg p.o. b.i.d. 2. Ultram 50 mg q.8 p.r.n. 3. Prilosec 40 mg with breakfast. 4. Nitrostat 0.4 sublingually q.5 p.r.n. 5. Zestril 10 mg p.o. daily. 6. Imdur 60 mg p.o. daily. 7. NovoLog FlexPen before meals and at bedtime. 8. Lantus 72-75 units at bedtime. 9. Hydrochlorothiazide 12.5 mg p.o. daily. 10.Jackpot 10 mg q.6 p.r.n. 11.Neurontin 900 mg p.o. t.i.d. 12.Plavix 75 mg p.o. daily. 13.Lipitor 40 mg at bedtime. 14.Ecotrin 81 mg daily. ALLERGIES: NONE. FAMILY HISTORY: History of coronary artery disease with stent and CAD, CABG in the family. SOCIAL HISTORY: Previous history of smoking. Occasional alcohol intake. REVIEW OF SYSTEMS: ENT: No diminished hearing. No diminished vision. CARDIOVASCULAR SYSTEM: No angina, palpitations. RESPIRATORY SYSTEM: No cough, hemoptysis. GI: As mentioned earlier. : No dysuria or retention. NERVOUS SYSTEM: No numbness, weakness. ALLERGY/IMMUNOLOGY: No asthma, hayfever. MUSCULOSKELETAL: As mentioned earlier. HEMATOLOGY/ONCOLOGY: No history of anemia. ENDOCRINE: No history of diabetes, hypothyroidism. CONSTITUTIONAL: As mentioned earlier. DERMATOLOGY: Negative. RHEUMATOLOGY: Negative. PSYCHIATRY: As mentioned earlier. PHYSICAL EXAMINATION: Patient is alert, oriented x3. VITAL SIGNS: Pulse 103, blood pressure 120/68, respirations 16, temperature 97.4, pulse ox 97% on 2 L. HEENT: Conjunctivae normal. Oral mucosa moist. NECK: No jugular venous distention. No carotid bruit. No lymph node enlargement. CARDIOVASCULAR SYSTEM: S1, S2 muffled. No S3. No S4. RESPIRATORY SYSTEM: Breath sounds diminished at the bases. A few rhonchi. No crackles. ABDOMEN: Soft, obese. Mild diffuse tenderness in the right lower quadrant. Some rebound tenderness also present. LEGS: No edema. No swelling. NERVOUS SYSTEM: Higher functions as mentioned earlier. Moves all 4 limbs. No focal motor or sensory deficit. LYMPHATICS: No lymph node palpable in neck, axillae or groin. JOINTS: No active deforming arthropathy. SKIN: No ulcer, rash, bleeding. LABS AT THIS TIME: WBC 11.8, hemoglobin 15.7, sodium 137, potassium 4.1, glucose 217. ASSESSMENT: 1. Right lower quadrant abdominal pain for evaluation. Rule out appendicitis. Rule out ileus. 2. History of coronary artery disease, coronary artery bypass grafting with stent. 3. History of congestive heart failure. 4. Diabetes mellitus, type 2. 5. Hypertension. 6. Hyperlipidemia. 7. History of myocardial infarction. 8. History of peripheral neuropathy. 9. History of peripheral vascular disease, status post procedure by Dr. Chen. 10.History of diabetes mellitus, type 2. 11.History of spinal stenosis. 12.History of cholecystectomy. 13.History of claustrophobia. 14.Obesity with body mass index of 43.8. 15.FULL CODE. RECOMMENDATIONS AND DISCUSSION: In this 64-year-old gentleman who presented with multiple complex medical issues, we will monitor the patient closely, continue the current management, continue symptomatic treatment. We will closely monitor with Surgery. Symptomatic treatment of the pain. Resume the home medications. Resume the Accu-Cheks before meals and at bedtime. As the patient continues to be n.p.o., I would recommend a smaller dose of Levemir. Otherwise, prognosis is guarded because of multiple complex medical issues. Continue Plavix on hold. Further recommendations to follow. MMODL / IJN: [id number] /
--- NOTE | 2019-01-14 17:54 | P.PN ---
Progress Note - Text Progress Note Date: 01/14/19 Patient seen and evaluated. He reports over six-month history of primarily right lower quadrant abdominal pain which had now worsened in the last 2 days. "I feel like something is pulling inside me.". He did do a cologuard test which came back positive as he is due for a colonoscopy. He's never had a prior colonoscopy. Denies any constipation. Does describe cramping right lower quadrant abdominal pain. He can tolerate liquids. Recommend additional studies either upper GI or barium enema as questionable intussusception identified along the right lower quadrant from independent interpretation and review of his CT of the abdomen and pelvis with IV contrast only. Appendix also identified. Additional blood work pending. Separately, direct visualization of the mucosa with a colonoscopy also described.
[2019-01-14 20:47] LABS: Glucose,Whole Blood 219 mg/dL (75-99)
[2019-01-14] MEDS ORDERED: INSULIN GLARGINE HUM REC ANLOG 35 UNIT SQ SCH (21:00)
[2019-01-14] MEDS: INSULIN DETEMIR (LEVEMIR) 100 UNIT/ML SYR SQ SCH (21:43)
[2019-01-14] MEDS: ATORVASTATIN 40 MG TAB PO SCH (21:44)
[2019-01-15] MEDS: traMADol 50 MG TAB PO SCH ×4 (00:15→23:28)
[2019-01-15] MEDS: SODIUM CHLORIDE 0.9% 1,000 ML IV SCH ×2 (00:17→17:56)
[2019-01-15 07:14] LABS: Glucose,Whole Blood 184 mg/dL (75-99)
[2019-01-15] MEDS: PANTOPRAZOLE 40 MG/10 ML VIAL IVP SCH ×2 (07:55→22:31)
[2019-01-15] MEDS: INSULIN ASPART (NovoLOG) 100 UNIT/ML VIAL SQ SCH ×4 (07:56→22:31)
[2019-01-15] MEDS: MORPHINE SULFATE 4 MG/ML SYRINGE IV PRN ×2 (09:43→19:57)
[2019-01-15 12:44] LABS: Glucose,Whole Blood 237 mg/dL (75-99)
[2019-01-15] MEDS: ISOSORBIDE MONONITRATE ER 60 MG TAB.ER.24H PO SCH (13:02)
[2019-01-15] MEDS: HEPARIN SODIUM,PORCINE 5,000 UNIT/ML 1 ML VIAL SQ SCH ×2 (13:02→22:31)
[2019-01-15] MEDS: GABAPENTIN 300 MG CAP PO SCH ×3 (13:02→22:32)
[2019-01-15] MEDS: HYDROCHLOROTHIAZIDE 12.5 MG CAP PO SCH (13:02)
[2019-01-15] MEDS: ASPIRIN 81 MG PO SCH (13:02)
[2019-01-15] MEDS: LISINOPRIL 10 MG TAB PO SCH (13:02)
[2019-01-15] MEDS: METOPROLOL TARTRATE 50 MG TAB PO SCH ×2 (13:02→22:33)
[2019-01-15 13:14] LABS: Basophils % (A) 0 %; Eosinophils # (A) 0.2 k/uL (0-0.7); Eosinophils % (A) 3 %; HCT 43.1 % (39.0-53.0); HGB 14.8 gm/dL (13.0-17.5); Lymphocytes # (A) 1.2 k/uL (1.0-4.8); Lymphocytes % (A) 17 %; MCH 30.5 pg (25.0-35.0); MCHC 34.5 g/dL (31.0-37.0); MCV 88.6 fL (80.0-100.0); Mean Platelet Volume 7.9; Monocytes # (A) 0.6 k/uL (0-1.0); Monocytes % (A) 8 %; Neutrophils # (A) 4.7 k/uL (1.3-7.7); Neutrophils % (A) 68 %; Platelet Count 158 k/uL (150-450); Poikilocytosis Slight; RBC 4.86 m/uL (4.30-5.90); RDW 14.4 % (11.5-15.5); WBC 6.9 k/uL (3.8-10.6)
--- NOTE | 2019-01-15 13:59 | FL ---
EXAMINATION TYPE: FL small bowel follow through DATE OF EXAM: 01/15/2019 CLINICAL HISTORY: 64-year-old male right lower quadrant intussusception, right lower quadrant pain TECHNIQUE: A single contrast small bowel follow through is performed utilizing barium. Total fluoroscopy time: 35 seconds. Total images: 25. 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 Nonobstr uctive bowel gas pattern with scattered colonic air. Cholecystectomy clips are present. The small bowel study shows delayed transit to the colon at approximately 4 hours. Only faint contras t makes it into the colon before the exam was terminated. Suggestion of some endoluminal narrowing at the ileocecal region and colon suggesting possible regional inflammation. Some distal small bowel loops in the right lower quadrant are mildly dilated measuring up to 4.0 cm. However, there is a normal mucosal fold pattern throughout the small bowel. There is no evidence of any stricture or filling defect noted. IMPRESSION: 1. Delayed small bowel transit time of approximately 4 hours and mildly dilated small bowel loops in the right lower quadrant measuring up to 4.0 cm. Findings suggest a regional ileus. 2. Additionally, suspect some underlying inflammation in the right lower quadrant as there is intralu efrem narrowing of the visualized contrast which has reached the colon. 3. The CT of 01/13/2019 is reviewed. Strong correlation should be made for acute appendicitis. There wa s possible early acute tip appendicitis at that time. Findings called to nurse Paul on [id number] at 1:55 PM.
--- NOTE | 2019-01-15 14:49 | P.PN ---
Subjective Progress Note Date: 01/15/19 CHIEF COMPLAINT: abdominal pain HISTORY OF PRESENT ILLNESS: Patient examined at the bedside. Patient continues to report right lower quadrant tenderness. Small bowel follow through completed today reveals delayed small bowel transit time and mildly dilated small bowel loops in the right lower quadrant measuring up to 4 cm. Findings suggest regional ileus. Additionally suspect some underlying inflammation in the right lower quadrant as there is intraluminal narrowing of the visualized contrast which has reached the colon. Strong correlation should be made for acute appendicitis. Possible early acute Appendicitis at that time on CT scan on 01/13/2019. PHYSICAL EXAM: VITAL SIGNS: Reviewed. GENERAL: Well-developed in no acute distress. HEENT: No sclera icterus. Extraocular movements grossly intact. Moist buccal mucosa. Head is atraumatic, normocephalic. ABDOMEN: Soft. Nondistended. Pain and tenderness upon palpation of right lower quadrant. NEUROLOGIC: Alert and oriented. Cranial nerves II through XII grossly intact. ASSESSMENT: 1. Right lower quadrant abdominal pain 2. Ileus 3. Possible acute appendicitis PLAN: Continue clear liquid diet. NPO after midnight Patient will tentatively be scheduled for appendectomy tomorrow Begin Zosyn every 8 hours Nurse practitioner note has been reviewed by physician. Signing provider agrees with the documented findings, assessment, and plan of care. Objective - Vital Signs Vital signs: Vital Signs Temp 97.7 F 01/15/19 13:00 Pulse 79 01/15/19 13:00 Resp 18 01/15/19 13:00 BP 147/71 01/15/19 13:00 Pulse Ox 95 01/15/19 13:00 Intake & Output 01/14/19 01/15/19 01/15/19 18:59 06:59 18:59 Weight 144.5 kg Other: Voiding Method Toilet Toilet Urinal Urinal # Voids 2 2 3 # Bowel Movements 1 - Labs CBC & Chem 7: 01/15/19 12:27 01/13/19 15:30 Labs: Abnormal Lab Results - Last 24 Hours (Table) 01/14/19 01/14/19 01/15/19 Range/Units 16:38 20:46 07:11 POC Glucose (mg/dL) 238 H 219 H 184 H (75-99) mg/dL 01/15/19 Range/Units 12:30 POC Glucose (mg/dL) 237 H (75-99) mg/dL
[2019-01-15] MEDS: PIPERACILLIN-TAZOBACTAM 3.375 GM in SODIUM CHLORIDE 0.9% 100 ML IVPB SCH ×2 (16:09→23:27)
[2019-01-15 16:53] LABS: Glucose,Whole Blood 236 mg/dL (75-99)
[2019-01-15 20:31] LABS: Glucose,Whole Blood 241 mg/dL (75-99)
--- NOTE | 2019-01-15 21:08 | P.PN ---
Progress Note - Text Progress Note Date: 01/15/19 Patient seen and evaluated. Small bowel follow through results reviewed. WBC normal. Right lower quadrant pain improved. Continue IV antibiotics inpatient appendectomy described. Colonoscopy as outpatient reviewed.
[2019-01-15] MEDS: ATORVASTATIN 40 MG TAB PO SCH (22:32)
[2019-01-15] MEDS: INSULIN DETEMIR (LEVEMIR) 100 UNIT/ML SYR SQ SCH (22:32)
--- NOTE | 2019-01-15 22:43 | PN ---
PROGRESS NOTE DATE OF SERVICE: 01/15/2019. HISTORY: This 60-year-old gentleman admitted with abdominal pain is being closely monitored. The possibility of bowel obstruction was considered. Small-bowel follow-through x-ray was arranged today which showed a delay of small bowel transit. The possibility of ileus. Underlying inflammation in the right lower quadrant is also considered. No chest pain. No palpitations. No fever. EXAM: Alert and oriented x3. VITALS: Pulse 79, blood pressure 147/77, respiration 18, temperature 97.7, pulse ox 94% on room air. HEENT: Conjunctivae normal. NECK: No JVD. CARDIOVASCULAR: S1 and S2 muffled. LUNGS: Breath sounds diminished in the bases. A few scattered rhonchi. ABDOMEN: Soft. Mild diffuse tenderness in the right lower quadrant. NERVOUS SYSTEM: No focal deficits. LABS: CBC within normal limits. Glucose 236 and 241. ASSESSMENT: 1. Right lower quadrant abdominal pain, rule out appendicitis, rule out ileus. 2. History of CAD, CABG with stent. 3. History of congestive heart failure. 4. Diabetes type 2. 5. Hypertension. 6. Hyperlipidemia. 7. History of myocardial infarction. 8. History of peripheral neuropathy. 9. History of peripheral vascular disease status post procedure by Dr. Chen. 10.History of diabetes type 2. 11.History of spinal stenosis. 12.History of cholecystectomy. 13.History of claustrophobia. 14.Obesity with body mass index of 43.6. 15.FULL CODE. RECOMMENDATIONS AND DISCUSSION: I recommend to continue current medications, continue with monitoring and symptomatic treatment. At this time I recommend to increase the dose of nighttime insulin. Otherwise, continue the broad-spectrum IV antibiotics. We will closely monitor with Surgery. Guarded prognosis. Further recommendations to follow. MMODL / IJN: [id number] /
[2019-01-16 07:17] LABS: Glucose,Whole Blood 185 mg/dL (75-99)
[2019-01-16] MEDS: HEPARIN SODIUM,PORCINE 5,000 UNIT/ML 1 ML VIAL SQ SCH ×2 (08:26→21:35)
[2019-01-16] MEDS: PANTOPRAZOLE 40 MG/10 ML VIAL IVP SCH ×2 (08:26→21:38)
[2019-01-16] MEDS: INSULIN ASPART (NovoLOG) 100 UNIT/ML VIAL SQ SCH ×4 (08:26→21:46)
[2019-01-16] MEDS: METOPROLOL TARTRATE 50 MG TAB PO SCH ×2 (08:27→21:37)
[2019-01-16] MEDS: HYDROCHLOROTHIAZIDE 12.5 MG CAP PO SCH (08:27)
[2019-01-16] MEDS: ISOSORBIDE MONONITRATE ER 60 MG TAB.ER.24H PO SCH (08:27)
[2019-01-16] MEDS: LISINOPRIL 10 MG TAB PO SCH (08:27)
[2019-01-16] MEDS: traMADol 50 MG TAB PO SCH ×2 (08:27→16:17)
[2019-01-16] MEDS: GABAPENTIN 300 MG CAP PO SCH ×3 (08:27→21:33)
[2019-01-16] MEDS: ASPIRIN 81 MG PO SCH (08:27)
[2019-01-16] MEDS: PIPERACILLIN-TAZOBACTAM 3.375 GM in SODIUM CHLORIDE 0.9% 100 ML IVPB SCH ×2 (08:28→16:17)
[2019-01-16] MEDS: SODIUM CHLORIDE 0.9% 1,000 ML IV SCH (08:32)
--- NOTE | 2019-01-16 10:47 | P.PN ---
Subjective Progress Note Date: 01/16/19 CHIEF COMPLAINT: abdominal pain HISTORY OF PRESENT ILLNESS: Patient examined at the bedside. Patient continues to complain of right lower quadrant abdominal pain. Denies nausea or vomiting. Currently NPO. Remains on Zosyn. labs from this morning are pending. PHYSICAL EXAM: VITAL SIGNS: Reviewed. GENERAL: Well-developed in no acute distress. HEENT: No sclera icterus. Extraocular movements grossly intact. Moist buccal mucosa. Head is atraumatic, normocephalic. ABDOMEN: Soft. Nondistended. Pain and tenderness upon palpation of right lower quadrant. NEUROLOGIC: Alert and oriented. Cranial nerves II through XII grossly intact. ASSESSMENT: 1. Right lower quadrant abdominal pain 2. Ileus 3. Acute appendicitis PLAN: Continue Zosyn. Await lab results from this AM NPO Patient to undergo appendectomy with Dr. Lowe Nurse practitioner note has been reviewed by physician. Signing provider agrees with the documented findings, assessment, and plan of care. Objective - Vital Signs Vital signs: Vital Signs Temp 97.6 F 01/16/19 05:00 Pulse 70 01/16/19 05:00 Resp 18 01/16/19 08:00 BP 137/66 01/16/19 05:00 Pulse Ox 93 L 01/16/19 05:00 Intake & Output 01/15/19 01/16/19 01/16/19 18:59 06:59 18:59 Output Total 300 600 400 Balance -300 -600 -400 Weight 143.392 kg Output: Urine 300 600 400 Other: Voiding Method Toilet Toilet Urinal Urinal # Voids 3 1 - Labs CBC & Chem 7: 01/15/19 12:27 01/13/19 15:30 Labs: Abnormal Lab Results - Last 24 Hours (Table) 01/15/19 01/15/19 01/15/19 Range/Units 12:30 16:52 20:30 POC Glucose (mg/dL) 237 H 236 H 241 H (75-99) mg/dL 01/16/19 Range/Units 07:11 POC Glucose (mg/dL) 185 H (75-99) mg/dL Assessment and Plan (1) Appendicitis Current Visit: Yes Status: Acute Code(s): K37 - UNSPECIFIED APPENDICITIS SNOMED Code(s): 81103807 (2) Abdominal pain Current Visit: Yes Status: Acute Code(s): R10.9 - UNSPECIFIED ABDOMINAL PAIN SNOMED Code(s): 19558562 (3) Ileus Current Visit: Yes Status: Acute Code(s): K56.7 - ILEUS, UNSPECIFIED SNOMED Code(s): 725403023
[2019-01-16 11:41] LABS: Basophils % (A) 1 %; Eosinophils # (A) 0.3 k/uL (0-0.7); Eosinophils % (A) 5 %; HCT 39.4 % (39.0-53.0); Lymphocytes % (A) 15 %; MCH 30.2 pg (25.0-35.0); MCHC 33.1 g/dL (31.0-37.0); MCV 91.2 fL (80.0-100.0); Mean Platelet Volume 6.7; Monocytes # (A) 0.4 k/uL (0-1.0); Monocytes % (A) 6 %; Neutrophils # (A) 4.7 k/uL (1.3-7.7); Neutrophils % (A) 71 %; Platelet Count 230 k/uL (150-450); RBC 4.32 m/uL (4.30-5.90); RDW 13.7 % (11.5-15.5); WBC 6.7 k/uL (3.8-10.6)
[2019-01-16 12:03] LABS: Glucose,Whole Blood 214 mg/dL (75-99)
--- NOTE | 2019-01-16 12:52 | P.CRDCN ---
History of Present Illness History of present illness: This is a pleasant 64-year-old male past medical history significant for coronary artery disease status post bypass grafting, peripheral vascular disease status post bilateral iliac stents,, diabetes mellitus, distal anemia, hypertension, aortic stenosis and myocardial infarction the past. He follows in the office with Dr. Rabago. We have Mrs. morataya in consultation for preoperative evaluation prior to appendectomy. He presented to the hospital on January 13 with symptoms of abdominal discomfort initially was diagnosed with an ileus. Further diagnostic testing revealed an acute appendicitis. He is seen and examined resting comfortably in bed in no acute distress. He is currently laying flat. He continues to complain of abdominal discomfort with some radiation into the midsternal region. Symptoms are not worse with exertion or activity. He denies significant shortness of breath. There are no palpitations or dizziness. EKG obtained reveals sinus tachycardia with evidence of old inferior infarct with no acute ST or T wave abnormalities noted. Chest x-ray is negative for an acute cardiopulmonary process. He underwent an echocardiogram in September 2018 revealing preserved LV systolic function with ejection fraction 55% with evidence of moderate aortic stenosis with a mean of 30 mmHg. Current cardiac medications include aspirin 81 mg daily, Plavix 75 mg daily, lisinopril 10 mg daily, Lopressor 50 mg twice a day, Imdur 60 mg daily, atorvastatin 40 mg daily. His Plavix has been held since admission. Laboratory data reviewed, WBC on admission 11.8 down to 6.7, sodium 137, potassium 4.1, creatinine 0.96, hemoglobin 13, platelets 230. Most recent cardiac catheterization performed September 2018 revealed left main coronary artery with 20% plaque distally, LAD is diffuse proximal disease with area of stenosis 99% and is subtotally occluded, circumflex gives rise to a large first OM with a patent stented segment no evidence of significant restenosis diffuse intimal disease with no focal stenosis, RCA is totally occluded in the midsegment without antegrade flow at the site of prior stenting, SVG to RCA is patent with retrograde flow into the distal RCA, FERGUSON to LAD is patent with brisk flow. At the time of my exam: CONSTITUTIONAL: Denies fever. Denies chills. EYES: Denies blurred vision. Denies vision changes. Denies eye pain. EARS, NOSE, MOUTH & THROAT: Denies headache. Denies sore throat. Denies ear pain. CARDIOVASCULAR: Denies chest pain. Denies shortness of breath. Denies orthopnea. Denies PND. Denies palpitations. RESPIRATORY: Denies cough. GASTROINTESTINAL: Complains of abdominal pain. Denies diarrhea. Denies constipation. Denies nausea. Denies vomiting. MUSCULOSKELETAL: Denies myalgias. INTEGUMENTARY: Denies pruitis. Denies rash. NEUROLOGIC: Denies numbness. Denies tingling. Denies weakness. PSYCHIATRIC: Denies anxiety. Denies depression. ENDOCRINE: Denies fatigue. Denies weight change. Denies polydipsia. Denies polyurina. GENITOURINARY: Denies burning, hematuria or urgency with micturation. HEMATOLOGIC: Denies history of anemia. Denies bleeding. Blood pressure 137/66 heart rate 70 afebrile maintaining oxygen saturation on room air GENERAL: This is a 64-year-old male in no apparent distress at the time of my examination. Morbidly obese. HEENT: Head is atraumatic, normocephalic. Pupils are equal, round. Sclerae anicteric. Conjunctivae are clear. Mucous membranes of the mouth are moist. Neck is supple. There is no jugular venous distention. No carotid bruit is heard. LUNGS: Clear to auscultation no wheezes, rales or rhonchi. No chest wall tenderness is noted on palpation or with deep breathing. HEART: Regular rate and rhythm with systolic ejection murmur at the base, no rubs or gallops. S1 and S2 heard. ABDOMEN: Soft, nontender. Bowel sounds are heard. No organomegaly noted. EXTREMITIES: No evidence of peripheral edema and no calf tenderness noted. VASCULAR: Radial and dorsalis pedis pulses palpated, no evidence of clubbing. NEUROLOGIC: Patient is awake, alert and oriented x3. ASSESSMENT Acute appendicitis with ileus History of coronary artery disease status post bypass grafting with recent catheterization revealing patent grafts 2 Aortic stenosis, moderate Hypertension Dyslipidemia Diabetes mellitus History of peripheral vascular disease status post iliac stenting PLAN Clinically the patient is euvolemic and free of anginal symptoms. Plavix has been held for 3 days. Recommend increasing his beta mindy to 75 mg twice a day for the postoperative period for optimal heart rate control. When he is discharged he can go back to 50 mg BID. From a cardiac perspective he is a high risk surgical candidate due to multiple comorbid conditions including coronary artery disease and aortic stenosis however there is no acute contraindications. Recommend cautious fluid administration intraoperatively and optimal blood pressure control. Thank you kindly for this consultation. Nurse Practitioner note has been reviewed, I agree with a documented findings and plan of care. Patient was seen and examined. Past Medical History Past Medical History: Coronary Artery Disease (CAD), Chest Pain / Angina, Heart Failure, Diabetes Mellitus, Eye Disorder, Hyperlipidemia, Hypertension, Myocardial Infarction (MD), Osteoarthritis (OA), Vascular Disorder Additional Past Medical History / Comment(s): IDDM type II, neuropathy bilateral feet, retinal damage R eye with blurred vision and occasional eye pain, PAD, arthritis in multiple joints, spinal stenosis/herniated discs/DDD low back with chronic pain, anemia, post op pleural effusions with thoracentesis. Last Myocardial Infarction Date:: 2014 History of Any Multi-Drug Resistant Organisms: None Reported Past Surgical History: Cholecystectomy, Coronary Bypass/CABG, Heart Catheterization, Heart Catheterization With Stent Additional Past Surgical History / Comment(s): 2014 cabg-5 vessel, PCI with stents, aortagram with run offs, SEWER HAND and stent to R and L SFA, R eye laser surgery, pilonidal cystectomies, bilateral cataract removals/lens implants. Past Anesthesia/Blood Transfusion Reactions: No Reported Reaction Additional Past Anesthesia/Blood Transfusion Reaction / Comment(s): CLAUSTROPHOBIA-difficulty with MRI Date of Last Stent Placement:: 01/18/2017 Past Psychological History: No Psychological Hx Reported Additional Psychological History / Comment(s): Pt resides alone. He is independent. He is retired. He is an [employer] . Smoking Status: Former smoker Past Alcohol Use History: Occasional Additional Past Alcohol Use History / Comment(s): STARTED SMOKING CIG AT AGE 15 1PPD,QUIT 2011. Past Drug Use History: None Reported - Past Family History Brother(s) Family Medical History: Cancer Father Family Medical History: Coronary Artery Disease (CAD), Diabetes Mellitus Additional Family Medical History / Comment(s): CABG. Father in his 80s Mother Family Medical History: Coronary Artery Disease (CAD), Diabetes Mellitus Additional Family Medical History / Comment(s): CABG. Mother in her 80s Medications and Allergies Home Medications Medication Instructions Recorded Confirmed Type Aspirin EC [Ecotrin Low Dose] 81 mg PO DAILY 07/06/15 01/13/19 History Gabapentin [Neurontin] 900 mg PO TID 06/18/16 01/13/19 History Hydrochlorothiazide 12.5 mg PO DAILY 06/18/16 01/13/19 History Lisinopril [Zestril] 10 mg PO DAILY #1 tab 06/20/16 01/13/19 Rx Insulin Aspart [NovoLOG Flexpen] See Protocol SQ ACHS 01/16/17 01/13/19 History Clopidogrel [Plavix] 75 mg PO DAILY #90 tab 01/19/17 01/13/19 Rx Nitroglycerin Sl Tabs [Nitrostat] 0.4 mg SUBLINGUAL Q5M PRN #25 tab 01/19/17 01/13/19 Rx Atorvastatin [Lipitor] 40 mg PO HS 01/10/18 01/13/19 History Insulin Glargine,Hum.rec.anlog 72 - 75 unit SQ HS 02/12/18 01/13/19 History [Lantus Solostar] HYDROcodone/APAP 10-325MG [[place] 1 tab PO Q6HR PRN 09/19/18 01/13/19 History 10-325] Omeprazole [PriLOSEC] 40 mg PO AC-BRKFST #14 capsule. 09/20/18 01/13/19 Rx Isosorbide Mononitrate ER [Imdur] 60 mg PO DAILY tab.er.24h 09/22/18 01/13/19 Rx Metoprolol Tartrate [Lopressor] 50 mg PO BID 01/13/19 01/13/19 History traMADol HCL [Ultram] 50 mg PO Q8H 01/13/19 01/13/19 History Allergies Allergy/AdvReac Type Severity Reaction Status Date / Time No Known Allergies Allergy Verified 01/13/19 16:00 Physical Exam Vitals: Vital Signs Temp Pulse Resp BP Pulse Ox 01/16/19 08:00 18 01/16/19 05:00 97.6 F 70 18 137/66 93 L 01/15/19 21:00 98.1 F 77 18 130/71 96 01/15/19 16:00 79 18 01/15/19 13:00 97.7 F 79 18 147/71 95 Intake and Output 01/15/19 01/16/19 01/16/19 22:59 06:59 14:59 Output Total 300 600 400 Balance -300 -600 -400 Output: Urine 300 600 400 Other: Voiding Method Toilet Toilet Urinal Urinal # Voids 1 Weight 143.392 kg Results 01/16/19 10:08 01/13/19 15:30 CBC 01/15/19 01/16/19 Range/Units 12:27 10:08 WBC 6.9 6.7 (3.8-10.6) k/uL RBC 4.86 4.32 (4.30-5.90) m/uL Hgb 14.8 13.0 (13.0-17.5) gm/dL Hct 43.1 39.4 (39.0-53.0) % Plt Count 158 230 (150-450) k/uL Current Medications Generic Name Dose Route Start Last Admin Trade Name Freq PRN Reason Stop Dose Admin Aspirin 81 mg 01/14/19 09:00 01/16/19 08:27 Aspirin PO 81 mg DAILY LEVY Administration Atorvastatin Calcium 40 mg 01/13/19 21:00 01/15/19 22:32 Lipitor PO 40 mg HS LEVY Administration Gabapentin 900 mg 01/13/19 22:00 01/16/19 08:27 Neurontin PO 900 mg TID LEVY Administration Heparin Sodium (Porcine) 5,000 unit 01/13/19 21:00 01/16/19 08:26 Heparin SQ 5,000 unit Q12HR LEVY Administration Hydrochlorothiazide 12.5 mg 01/15/19 09:00 01/16/19 08:27 Hydrodiuril PO 12.5 mg DAILY LEVY Administration Sodium Chloride 1,000 mls @ 60 mls/hr 01/14/19 10:30 01/16/19 08:32 Saline 0.9% IV 60 mls/hr .[id number] LEVY Administration Piperacillin Sod/Tazobactam 100 mls @ 25 mls/hr 01/15/19 16:00 01/16/19 08:28 Sod 3.375 gm/ Sodium Chloride IVPB 25 mls/hr Q8HR LEVY Administration Insulin Aspart 0 unit 01/13/19 21:00 01/16/19 08:26 Novolog SQ 3 unit ACHS LEVY Administration Protocol Insulin Detemir 35 unit 01/13/19 21:00 01/15/19 22:32 Levemir SQ 35 unit HS LEVY Administration Isosorbide Mononitrate 60 mg 01/14/19 09:00 01/16/19 08:27 Imdur PO 60 mg DAILY LEVY Administration Lisinopril 10 mg 01/14/19 09:00 01/16/19 08:27 Zestril PO 10 mg DAILY LEVY Administration Metoprolol Tartrate 50 mg 01/14/19 10:30 01/16/19 08:27 Lopressor PO 50 mg BID LEVY Administration Morphine Sulfate 4 mg 01/13/19 17:42 01/15/19 19:57 Morphine Sulfate (Inj) IV 4 mg Q4HR PRN Administration Severe Pain Naloxone HCl 0.2 mg 01/13/19 17:42 Narcan IV Q2M PRN Opioid Reversal Nitroglycerin 0.4 mg 01/13/19 18:13 01/14/19 02:39 Nitrostat SUBLINGUAL 0.4 mg Q5M PRN Administration Chest Pain Ondansetron HCl 4 mg 01/13/19 17:42 Zofran IVP Q8HR PRN Nausea And Vomiting Pantoprazole Sodium 40 mg 01/13/19 21:00 01/16/19 08:26 Protonix IVP 40 mg BID LEVY Administration Tramadol HCl 50 mg 01/14/19 11:00 01/16/19 08:27 Ultram PO 50 mg Q8HR LEVY Administration Intake and Output 01/15/19 01/16/19 01/16/19 22:59 06:59 14:59 Output Total 300 600 400 Balance -300 -600 -400 Output: Urine 300 600 400 Other: Voiding Method Toilet Toilet Urinal Urinal # Voids 1 Weight 143.392 kg 01/16/19 10:08 01/13/19 15:30
--- NOTE | 2019-01-16 13:43 | P.PN ---
Progress Note - Text Progress Note Date: 01/16/19 Patient last dose of Plavix Monday. Surgery deferred until after 5 days off Plavix. Very high risk of bleeding prior to that time. Anticipated surgery for Monday.
[2019-01-16 17:02] LABS: Glucose,Whole Blood 257 mg/dL (75-99)
--- NOTE | 2019-01-16 17:19 | PN ---
PROGRESS NOTE DATE OF SERVICE: 01/16/2019 This 64-year-old gentleman who was admitted with right lower quadrant abdominal pain and possible acute appendicitis. The patient is slated for surgery by Dr. Lowe. No chest pain. No palpitations. No fever. PHYSICAL EXAM: Alert and oriented x3. Pulse is 60, blood pressure 101/60, respiration 18, temperature 97.8, pulse ox 94% on room air. HEENT: Conjunctivae normal. NECK: No jugular venous distention. CARDIOVASCULAR: S1, S2 muffled. RESPIRATORY: Breath sounds diminished in the bases. No rhonchi. No crackles. ABDOMEN: Soft, obese, mild diffuse tenderness in the right lower quadrant. No guarding. No rigidity. No ascites. Bowel sounds diminished. LEGS: No edema. No swelling. CENTRAL NERVOUS SYSTEM: No focal deficits. LABORATORY DATA: CBC within normal limits. Glucose 195, 214. ASSESSMENT: 1. Right lower quadrant abdominal pain possible acute appendicitis. 2. Possibly ileus. 3. History of coronary artery disease, coronary artery bypass grafting stent. 4. History of congestive heart failure. 5. Diabetes type 2. 6. Hypertension. 7. Hyperlipidemia. 8. History of myocardial infarction. 9. History of peripheral neuropathy. 10.History of peripheral vascular disease and procedure by Dr. Chen. 11.History of diabetes type 2. 12.History of spinal stenosis. 13.History of cholecystectomy. 14.History of claustrophobia. 15.Obesity with body mass index of 43.6. 16.FULL CODE. RECOMMENDATIONS AND DISCUSSION: Recommend to continue current medications, management and symptomatic treatment. Otherwise, at this time, I recommend to monitor the blood sugars closely. Otherwise, IV antibiotics. Closely follow with Surgery for possible surgery. Prognosis guarded. Further recommendations to follow. MMODL / IJN: [id number] /
[2019-01-16 20:39] LABS: Glucose,Whole Blood 269 mg/dL (75-99)
[2019-01-16] MEDS: ATORVASTATIN 40 MG TAB PO SCH (21:34)
[2019-01-16] MEDS: INSULIN DETEMIR (LEVEMIR) 100 UNIT/ML SYR SQ SCH (21:45)
[2019-01-16] MEDS: MORPHINE SULFATE 4 MG/ML SYRINGE IV PRN (22:00)
[2019-01-17] MEDS: PIPERACILLIN-TAZOBACTAM 3.375 GM in SODIUM CHLORIDE 0.9% 100 ML IVPB SCH ×4 (00:29→23:51)
[2019-01-17] MEDS: traMADol 50 MG TAB PO SCH ×4 (00:31→23:51)
[2019-01-17] MEDS: SODIUM CHLORIDE 0.9% 1,000 ML IV SCH ×2 (00:45→17:35)
[2019-01-17 07:26] LABS: Glucose,Whole Blood 197 mg/dL (75-99)
[2019-01-17] MEDS: INSULIN ASPART (NovoLOG) 100 UNIT/ML VIAL SQ SCH ×4 (07:41→21:08)
[2019-01-17] MEDS: METOPROLOL TARTRATE 50 MG TAB PO SCH ×2 (07:42→20:59)
[2019-01-17] MEDS: LISINOPRIL 10 MG TAB PO SCH (07:43)
[2019-01-17] MEDS: ASPIRIN 81 MG PO SCH (07:43)
[2019-01-17] MEDS: GABAPENTIN 300 MG CAP PO SCH ×3 (07:43→21:08)
[2019-01-17] MEDS: HEPARIN SODIUM,PORCINE 5,000 UNIT/ML 1 ML VIAL SQ SCH ×2 (07:44→20:59)
[2019-01-17] MEDS: HYDROCHLOROTHIAZIDE 12.5 MG CAP PO SCH (07:44)
[2019-01-17] MEDS: PANTOPRAZOLE 40 MG/10 ML VIAL IVP SCH ×2 (07:45→20:58)
[2019-01-17] MEDS: ISOSORBIDE MONONITRATE ER 60 MG TAB.ER.24H PO SCH (07:45)
[2019-01-17] MEDS: MORPHINE SULFATE 4 MG/ML SYRINGE IV PRN ×3 (11:28→23:48)
--- NOTE | 2019-01-17 11:48 | P.PN ---
Subjective Progress Note Date: 01/17/19 CHIEF COMPLAINT: abdominal pain HISTORY OF PRESENT ILLNESS: Patient examined at the bedside. Patient continues to complain of right lower quadrant abdominal pain. Denies nausea or vomiting. Tolerating full liquid diet. Remains on Zosyn. labs from this morning are pending. PHYSICAL EXAM: VITAL SIGNS: Reviewed. GENERAL: Well-developed in no acute distress. HEENT: No sclera icterus. Extraocular movements grossly intact. Moist buccal mucosa. Head is atraumatic, normocephalic. ABDOMEN: Soft. Nondistended. Pain and tenderness upon palpation of right lower quadrant. NEUROLOGIC: Alert and oriented. Cranial nerves II through XII grossly intact. ASSESSMENT: 1. Right lower quadrant abdominal pain 2. Ileus 3. Acute appendicitis PLAN: Continue Zosyn Full liquid diet. NPO after midnight Continue to hold plavix Patient to undergo appendectomy with Dr. Lowe tomorrow Nurse practitioner note has been reviewed by physician. Signing provider agrees with the documented findings, assessment, and plan of care. Objective - Vital Signs Vital signs: Vital Signs Temp 97.4 F L 01/17/19 05:00 Pulse 64 01/17/19 05:00 Resp 16 01/17/19 08:00 BP 138/64 01/17/19 05:00 Pulse Ox 92 L 01/17/19 05:00 Intake & Output 01/16/19 01/17/19 01/17/19 18:59 06:59 18:59 Intake Total 500 Output Total 400 400 Balance -400 100 Weight 146 kg Intake: Oral 500 Output: Urine 400 400 Other: Voiding Method Toilet Toilet Toilet Urinal Urinal Urinal # Voids 3 0 # Bowel Movements 0 - Labs CBC & Chem 7: 01/16/19 10:08 01/13/19 15:30 Labs: Abnormal Lab Results - Last 24 Hours (Table) 01/16/19 01/16/19 01/16/19 Range/Units 12:01 16:56 20:30 POC Glucose (mg/dL) 214 H 257 H 269 H (75-99) mg/dL 01/17/19 Range/Units 07:17 POC Glucose (mg/dL) 197 H (75-99) mg/dL Assessment and Plan (1) Appendicitis Current Visit: Yes Status: Acute Code(s): K37 - UNSPECIFIED APPENDICITIS SNOMED Code(s): 99354186 (2) Abdominal pain Current Visit: Yes Status: Acute Code(s): R10.9 - UNSPECIFIED ABDOMINAL PAIN SNOMED Code(s): 67026530 (3) Ileus Current Visit: Yes Status: Acute Code(s): K56.7 - ILEUS, UNSPECIFIED SNOMED Code(s): 097822713
[2019-01-17 12:40] LABS: Glucose,Whole Blood 276 mg/dL (75-99)
--- NOTE | 2019-01-17 14:24 | P.PN ---
Subjective Patient is admitted for left lower quadrant abdominal pain, is being treated for ileus but appears to have acute appendicitis as well for which patient will undergo appendectomy tomorrow as per surgery and patient is presently on Zosyn which will be continued Plavix is being held. Constitutional: Denied any fatigue denied any fever. Cardio vascular: denied any chest pain, palpitations Gastrointestinal on planing of moderate right lower quadrant abdominal pain Pulmonary: Denied any shortness of breath cough Neurologic denied any new focal deficits All inpatient medications were reviewed and appropriate changes in these medications as dictated in the interval history and assessment and plan. Objective - Vital Signs Vital signs: Vital Signs Temp 97.4 F L 01/17/19 05:00 Pulse 64 01/17/19 05:00 Resp 16 01/17/19 08:00 BP 138/64 01/17/19 05:00 Pulse Ox 92 L 01/17/19 05:00 Intake & Output 01/16/19 01/17/19 01/17/19 18:59 06:59 18:59 Intake Total 500 Output Total 400 400 Balance -400 100 Weight 146 kg Intake: Oral 500 Output: Urine 400 400 Other: Voiding Method Toilet Toilet Toilet Urinal Urinal Urinal # Voids 3 0 # Bowel Movements 0 - Exam PHYSICAL EXAMINATION: GENERAL: The patient is alert and oriented x3, not in any acute distress. Obese HEENT: Pupils are round and equally reacting to light. EOMI. No scleral icterus. No conjunctival pallor. Normocephalic, atraumatic. No pharyngeal erythema. No thyromegaly. CARDIOVASCULAR: S1 and S2 present. No murmurs, rubs, or gallops. PULMONARY: Chest is clear to auscultation, no wheezing or crackles. ABDOMEN: Soft mild to moderate right lower quadrant abdominal tenderness no rebound or rigidity MUSCULOSKELETAL: No joint swelling or deformity. EXTREMITIES: No cyanosis, clubbing, or pedal edema. NEUROLOGICAL: Gross neurological examination did not reveal any focal deficits. SKIN: No rashes. - Labs CBC & Chem 7: 01/16/19 10:08 01/13/19 15:30 Labs: Abnormal Lab Results - Last 24 Hours (Table) 01/16/19 01/16/19 01/17/19 Range/Units 16:56 20:30 07:17 POC Glucose (mg/dL) 257 H 269 H 197 H (75-99) mg/dL 01/17/19 Range/Units 12:18 POC Glucose (mg/dL) 276 H (75-99) mg/dL Assessment and Plan Plan: -Possible acute appendicitis: Patient will undergo laparotomy and the appendectomy tomorrow -Ileus appears to have improved -Coronary artery disease -Type 2 diabetes mellitus -Hypertension -Diuretic therapy neuropathy Peripheral vascular disease -Obesity Lasted any is present medications antibiotics, appendectomy tomorrow
--- NOTE | 2019-01-17 15:47 | P.PN ---
Progress Note - Text Progress Note Date: 01/17/19 [facility] to peer requested [facility] by [facility] Moody Don. I spoke with Dr. Don who wanted to know the progression of his hospitalization. I clarified that I am only the consulting surgeon on the case where Mr. Paez presented with ileus per initial CT scan. Additional studies during his hospitalization progressed to small bowel follow through and change in diagnosis for suspected appendicitis. WBC had improved including severity of right lower quadrant abdominal pain. Appendectomy pending off Plavix for at least 5 days. Patient had been afebrile and normotensive without peritonitis as off this morning's assessment from 9am. Information above relayed to requesting provider as surgical asst.
[2019-01-17 17:19] LABS: Glucose,Whole Blood 267 mg/dL (75-99)
--- NOTE | 2019-01-17 19:42 | P.PN ---
Progress Note - Text Progress Note Date: 01/17/19 Patient reassessed with questions about surgery reviewed. Also, patient notes history of gastric esophageal reflux disease worsening. Plan for appendectomy tomorrow. Outpatient workup for EGD and colonoscopy.
[2019-01-17 20:47] LABS: Glucose,Whole Blood 249 mg/dL (75-99)
[2019-01-17] MEDS: INSULIN DETEMIR (LEVEMIR) 100 UNIT/ML SYR SQ SCH (20:58)
[2019-01-17] MEDS: ATORVASTATIN 40 MG TAB PO SCH (20:59)
[2019-01-18 06:59] LABS: Glucose,Whole Blood 202 mg/dL (75-99)
[2019-01-18] MEDS: PANTOPRAZOLE 40 MG/10 ML VIAL IVP SCH (07:33)
[2019-01-18] MEDS: METOPROLOL TARTRATE 50 MG TAB PO SCH ×2 (07:34→21:18)
[2019-01-18] MEDS: ISOSORBIDE MONONITRATE ER 60 MG TAB.ER.24H PO SCH (07:34)
[2019-01-18] MEDS: GABAPENTIN 300 MG CAP PO SCH ×3 (07:34→21:17)
[2019-01-18] MEDS: traMADol 50 MG TAB PO SCH ×3 (07:39→23:49)
[2019-01-18] MEDS: ASPIRIN 81 MG PO SCH (07:39)
[2019-01-18] MEDS: INSULIN ASPART (NovoLOG) 100 UNIT/ML VIAL SQ SCH ×4 (07:39→21:17)
[2019-01-18] MEDS: PIPERACILLIN-TAZOBACTAM 3.375 GM in SODIUM CHLORIDE 0.9% 100 ML IVPB SCH ×3 (07:39→23:48)
[2019-01-18] MEDS: HEPARIN SODIUM,PORCINE 5,000 UNIT/ML 1 ML VIAL SQ SCH ×2 (07:40→21:18)
[2019-01-18] MEDS: MORPHINE SULFATE 4 MG/ML SYRINGE IV PRN ×3 (07:48→21:27)
[2019-01-18 09:42] VITALS: BMI 43.4
[2019-01-18 09:54] LABS: HCT 42.6 % (39.0-53.0); HGB 14.3 gm/dL (13.0-17.5); MCH 30.5 pg (25.0-35.0); MCHC 33.6 g/dL (31.0-37.0); MCV 90.8 fL (80.0-100.0); Mean Platelet Volume 6.9; Platelet Count 238 k/uL (150-450); RBC 4.69 m/uL (4.30-5.90); RDW 13.9 % (11.5-15.5); WBC 5.9 k/uL (3.8-10.6)
[2019-01-18 10:03] LABS: ALT 43 U/L (21-72); AST 38 U/L (17-59); Albumin 3.9 g/dL (3.5-5.0); Alkaline Phosphatase 38 U/L (38-126); Anion Gap 9 mmol/L; Blood Urea Nitrogen 6 mg/dL (9-20); Carbon Dioxide 30 mmol/L (22-30); Chloride 100 mmol/L (98-107); Glucose 198 mg/dL (74-99); Sodium 139 mmol/L (137-145); Total Protein 6.9 g/dL (6.3-8.2)
[2019-01-18] MEDS: SODIUM CHLORIDE 0.9% 1,000 ML IV SCH ×6 (11:27→23:54)
[2019-01-18] MEDS ORDERED: ceFAZolin 3 GM in SODIUM CHLORIDE 0.9% 100 ML IVPB ONE (11:51)
[2019-01-18] MEDS ORDERED: IV FLUID CONTINUATION 150 ML IV ONE (11:56)
[2019-01-18] MEDS ORDERED: ONDANSETRON 4 MG/2 ML VIAL IVP PRN (12:26)
[2019-01-18] MEDS ORDERED: HYDROmorphone 0.5 MG/0.5 ML SYRINGE IVP PRN (12:26)
[2019-01-18] MEDS ORDERED: INSULIN ASPART (NovoLOG) 100 UNIT/ML VIAL SQ ONE ×2 (12:30→14:01)
[2019-01-18] MEDS ORDERED: HEPARIN SODIUM,PORCINE 5,000 UNIT/ML 1 ML VIAL SQ ONE (12:30)
[2019-01-18] MEDS ORDERED: ONDANSETRON 4 MG/2 ML VIAL IVP ONE (12:30)
[2019-01-18] MEDS ORDERED: LACTATED RINGERS 1,000 ML IV SCH (12:30)
[2019-01-18] MEDS ORDERED: ROCURONIUM BROMIDE 10 MG/ML 10 ML VIAL IV ONE (12:33)
[2019-01-18] MEDS ORDERED: fentaNYL (PF) 50 MCG/ML 2 ML AMP ONE (12:33)
[2019-01-18] MEDS ORDERED: LIDOCAINE 1% INJ 10MG/ML (20 ML MDV) ONE (12:33)
[2019-01-18] MEDS ORDERED: GLYCOPYRROLATE 0.2 MG/ML 2 ML VIAL ONE (12:33)
[2019-01-18] MEDS ORDERED: PROPOFOL 10 MG/ML 20 ML VIAL IV ONE (12:33)
[2019-01-18] MEDS ORDERED: MIDAZOLAM 2 MG/2 ML VIAL ONE (12:33)
[2019-01-18] MEDS ORDERED: NEOSTIGMINE 1 MG/ML 10 ML VIAL ONE (12:33)
[2019-01-18] MEDS ORDERED: PHENYLEPHRINE-0.9% NACL SYG 1 MG/10 ML SYRINGE ONE (12:33)
[2019-01-18] MEDS ORDERED: SUCCINYLCHOLINE CHLORIDE 100 MG/5 ML SYR IV ONE (12:33)
[2019-01-18 12:34] LABS: Glucose,Whole Blood 202 mg/dL (75-99)
[2019-01-18] MEDS ORDERED: BUPIVACAINE-EPI 0.5%-1:200,000 10 ML VIAL SQ ONE ×2 (12:34→13:08)
[2019-01-18] MEDS ORDERED: LACTATED RINGERS 1,000 ML IV ONE (13:10)
[2019-01-18 13:58] LABS: Glucose,Whole Blood 210 mg/dL (75-99)
--- NOTE | 2019-01-18 13:59 | P.OP ---
Date of Procedure: 01/18/19 Description of Procedure: SURGEON: ELVIA LOWE MD Preoperative Diagnosis: 1. Right lower quadrant abdominal pain 2. Acute appendicitis. 3. Ischemic cardiomyopathy 4. Diabetes type 2, poorly controlled 5. Morbid obesity due to excess calories, BMI 43.5 6. Chronic antiplatelet therapy 7. Obstructive sleep apnea 8. Hyperlipidemia 9. Gastroesophageal reflux disease 10. Bilateral lower extremity diabetic neuropathy 11. Diabetic retinopathy 12. Angina 13. History of myocardial infarction Postoperative Diagnosis: 1. Right lower quadrant abdominal pain 2. Acute appendicitis. 3. Ischemic cardiomyopathy 4. Diabetes type 2, poorly controlled 5. Morbid obesity due to excess calories, BMI 43.5 6. Chronic antiplatelet therapy 7. Obstructive sleep apnea. 8. Hyperlipidemia 9. Gastroesophageal reflux disease 10. Bilateral lower extremity diabetic neuropathy 11. Diabetic retinopathy 12. Angina 13. History of myocardial infarction Procedure(s) Performed: 1. Robotic-assisted daVinci Xi laparoscopic appendectomy Anesthesia: GETA, local Surgeon: Elvia Lowe Estimated Blood Loss (ml): 5 Pathology: other (appendix) Condition: stable Disposition: floor Operative Findings: 1. Acute appendicitis without rupture with severe periappendicitis and adhesion to the right lower quadrant abdominal wall 2. Terminal ileum unremarkable 3. Cecum unremarkable 4. No bilateral inguinal hernias 5. Console time 5 minutes INDICATIONS: The patient is a 64-year-old male who presents with long-standing right lower quadrant abdominal pain initially for 6 months with severity last 4 days. Additional diagnostic studies including small bowel follow-through confirmed appendicitis. Surgical intervention was described in detail including robotic assisted technique. Benefits and risks, including infection, open surgery, and possibility for additional surgery was discussed at length. Informed consent was obtained. All questions of the patient and family were answered. DESCRIPTION: The patient was transferred to the operating room and placed in supine position. The patient had previously voided. The abdomen was then prepped and draped in standard sterile fashion as Ioban was placed along the abdomen to minimize any contamination of skin floor. After a timeout protocol was performed, attention was then brought to the left upper quadrant whereby a 0 degree 5 mm laparoscopic trocar entry was performed. The abdominal cavity was entered and insufflated to 15 mmHg pressure, which was tolerated well. Diagnostic laparoscopy demonstrated no injury to bowel, viscera or mesentery. Immediately the appendix and mesoappendix were tightly adherent to the right lower quadrant abdominal wall. No evidence of perforation or free fluid was identified. Next a robotic 12-mm trocar was placed along the left lower quadrant, 15-cm lateral to the midline. A 8 mm port was placed along the right upper quadrant and another 8-mm port along the epigastrium. Ports were placed 10 cm apart from each other including 15-20 cm away from the target anatomy of the right pelvis. The patient was then placed in Trendelenburg position, at least 10 down and right side up at least 6. The robotic da Mayra XI system was primed and docked from the left side of the patient. Using atraumatic graspers and vessel sealer, the robotic system was docked and primed as described. Instruments were interchanged by the city carrier assistant including graspers, robotic stapler and vessel sealer. Next, attention was brought to identify the cecum. A systematic view within the abdominal cavity was started with the small bowel which was unremarkable. The base of the cecum was unremarkable. No inguinal hernias were identified. The body to tip of the appendix was moderately dilated with moderate periappendicitis and direct adhesion to the abdominal wall on the right lower abdomen consistent with area of pain. No perforation was identified A 45 mm white robotic staple loads were fired along the base of the appendix. The staple line was hemostatic. Hemostasis was checked prior to undocking the robot. The robot was undocked. I re-scrubbed into the case. The specimen was removed from the abdominal cavity with an Endo Catch bag through the 12 mm trocar at the left lower quadrant. All instruments and pneumoperitoneum were evacuated from the abdominal cavity. Local anesthetic was infiltrated to all wounds for postop analgesia. All incisions were also cleansed with diluted hydrogen peroxide. Exofin glue was applied to the rest of the skin incisions. The patient had tolerated the procedure well. The patient was extubated successfully. The patient was transferred to the postanesthesia care unit in stable condition.
--- NOTE | 2019-01-18 14:07 | P.PN ---
Subjective Patient is admitted for left lower quadrant abdominal pain, is being treated for ileus but appears to have acute appendicitis as well for which patient will undergo appendectomy tomorrow as per surgery and patient is presently on Zosyn which will be continued Plavix is being held. 01/18/2019 no overnight events patient underwent appendectomy today Constitutional: Denied any fatigue denied any fever. Cardio vascular: denied any chest pain, palpitations Gastrointestinal on planing of moderate right lower quadrant abdominal pain Pulmonary: Denied any shortness of breath cough Neurologic denied any new focal deficits All inpatient medications were reviewed and appropriate changes in these medications as dictated in the interval history and assessment and plan. Objective - Vital Signs Vital signs: Vital Signs Temp 97.7 F 01/18/19 13:46 Pulse 73 01/18/19 14:00 Resp 16 01/18/19 14:00 BP 173/78 01/18/19 14:00 Pulse Ox 100 01/18/19 14:00 Intake & Output 01/17/19 01/18/19 01/18/19 18:59 06:59 18:59 Intake Total 200 450 Output Total 5 Balance 200 445 Weight 145.5 kg 145.5 kg Intake: IV 450 Oral 200 Output: Estimated Blood Loss 5 Other: Voiding Method Toilet Toilet Toilet Urinal Urinal Urinal # Voids 2 1 # Bowel Movements 0 - Exam PHYSICAL EXAMINATION: GENERAL: The patient is alert and oriented x3, not in any acute distress. Obese HEENT: Pupils are round and equally reacting to light. EOMI. No scleral icterus. No conjunctival pallor. Normocephalic, atraumatic. No pharyngeal erythema. No thyromegaly. CARDIOVASCULAR: S1 and S2 present. No murmurs, rubs, or gallops. PULMONARY: Chest is clear to auscultation, no wheezing or crackles. ABDOMEN: Soft mild to moderate right lower quadrant abdominal tenderness no rebound or rigidity MUSCULOSKELETAL: No joint swelling or deformity. EXTREMITIES: No cyanosis, clubbing, or pedal edema. NEUROLOGICAL: Gross neurological examination did not reveal any focal deficits. SKIN: No rashes. - Labs CBC & Chem 7: 01/18/19 08:50 01/18/19 08:50 Labs: Abnormal Lab Results - Last 24 Hours (Table) 01/17/19 01/17/19 01/18/19 Range/Units 17:17 20:44 06:52 BUN (9-20) mg/dL Glucose (74-99) mg/dL POC Glucose (mg/dL) 267 H 249 H 202 H (75-99) mg/dL 01/18/19 01/18/19 01/18/19 Range/Units 08:50 12:15 13:54 BUN 6 L (9-20) mg/dL Glucose 198 H (74-99) mg/dL POC Glucose (mg/dL) 202 H 210 H (75-99) mg/dL Assessment and Plan Plan: -Possible acute appendicitis: Patient will undergo laparotomy and the appendectomy today patient is on IV antiemetics which will be continued -Ileus appears to have improved -Coronary artery disease -Type 2 diabetes mellitus -Hypertension -Diuretic therapy neuropathy Peripheral vascular disease -Obesity Lasted any is present medications antibiotics, appendectomy tomorrow
[2019-01-18] MEDS: KETOROLAC 30 MG/ML 1 ML VIAL IVP SCH ×2 (14:40→23:48)
[2019-01-18 16:55] LABS: Glucose,Whole Blood 227 mg/dL (75-99)
--- NOTE | 2019-01-18 17:01 | P.PN ---
Progress Note - Text Progress Note Date: 01/18/19 Patient seen and evaluated. Intraoperative findings reviewed in detail. Appendicitis without free rupture noted. No evidence of gross malignancy identified. Patient may be discharged when medically stable. We'll follow up as outpatient for both upper and lower endoscopy.
[2019-01-18] MEDS: PANTOPRAZOLE 40 MG TABLET PO SCH (17:24)
[2019-01-18 20:45] LABS: Glucose,Whole Blood 234 mg/dL (75-99)
[2019-01-18] MEDS: INSULIN DETEMIR (LEVEMIR) 100 UNIT/ML SYR SQ SCH (21:17)
[2019-01-18] MEDS: ATORVASTATIN 40 MG TAB PO SCH (21:18)
[2019-01-19] MEDS: KETOROLAC 30 MG/ML 1 ML VIAL IVP SCH ×2 (05:56→12:17)
[2019-01-19 07:33] LABS: Glucose,Whole Blood 296 mg/dL (75-99)
[2019-01-19 07:53] VITALS: BP 153/79; PULSE 85; RESP 16; TEMP 98.5
[2019-01-19 08:10] LABS: Anion Gap 8 mmol/L; Blood Urea Nitrogen 15 mg/dL (9-20); Calcium 8.8 mg/dL (8.4-10.2); Carbon Dioxide 30 mmol/L (22-30); Chloride 99 mmol/L (98-107); Glucose 286 mg/dL (74-99); Sodium 137 mmol/L (137-145)
[2019-01-19 08:11] LABS: HCT 40.4 % (39.0-53.0); HGB 13.4 gm/dL (13.0-17.5); MCH 30.1 pg (25.0-35.0); MCHC 33.1 g/dL (31.0-37.0); MCV 90.8 fL (80.0-100.0); Mean Platelet Volume 7.7; Platelet Count 236 k/uL (150-450); Poikilocytosis Slight; RBC 4.45 m/uL (4.30-5.90); RDW 14.7 % (11.5-15.5); WBC 8.8 k/uL (3.8-10.6)
[2019-01-19] MEDS: traMADol 50 MG TAB PO SCH (09:22)
[2019-01-19] MEDS: METOPROLOL TARTRATE 50 MG TAB PO SCH (09:23)
[2019-01-19] MEDS: GABAPENTIN 300 MG CAP PO SCH (09:23)
[2019-01-19] MEDS: ASPIRIN 81 MG PO SCH (09:23)
[2019-01-19] MEDS: ISOSORBIDE MONONITRATE ER 60 MG TAB.ER.24H PO SCH (09:23)
[2019-01-19] MEDS: HEPARIN SODIUM,PORCINE 5,000 UNIT/ML 1 ML VIAL SQ SCH (09:24)
[2019-01-19] MEDS: INSULIN ASPART (NovoLOG) 100 UNIT/ML VIAL SQ SCH ×2 (09:24→12:17)
[2019-01-19] MEDS: PIPERACILLIN-TAZOBACTAM 3.375 GM in SODIUM CHLORIDE 0.9% 100 ML IVPB SCH (09:29)
[2019-01-19] MEDS: PANTOPRAZOLE 40 MG TABLET PO SCH (09:30)
[2019-01-19 12:03] LABS: Glucose,Whole Blood 314 mg/dL (75-99)
[2019-01-19] MEDS: SODIUM CHLORIDE 0.9% 1,000 ML IV SCH (12:25)
--- NOTE | 2019-01-19 12:40 | P.DS ---
Providers Date of admission: 01/13/19 17:42 Attending physician: Sedrick Strauss MD Consults: 01/13/19 17:43 Consult Physician Routine Consulting Provider: Elvia Lowe Consult Reason/Comments: Ileus, abdominal pain Do you want consulting provider notified?: Yes 01/15/19 21:11 Consult Physician Routine Consulting Provider: Aleisha Garner Consult Reason/Comments: h/o cad Do you want consulting provider notified?: Yes 01/18/19 11:51 Consult Physician Routine Consulting Provider: [facility] Consult Reason/Comments: [facility] Do you want consulting provider notified?: Yes Primary care physician: [facility] Course: Patient is admitted for left lower quadrant abdominal pain, is being treated for ileus but appears to have acute appendicitis as well for which patient will undergo appendectomy tomorrow as per surgery and patient is presently on Zosyn which will be continued Plavix is being held. 01/18/2019 no overnight events patient underwent appendectomy today 01/19/2019 patient is still complaining pain and surgical site area which appears to be clean although overall patient looks well and can be discharged today patient did have bowel movements which are bit loose and I believe that is secondary to antibiotics PHYSICAL EXAMINATION: GENERAL: The patient is alert and oriented x3, not in any acute distress. Obese HEENT: Pupils are round and equally reacting to light. EOMI. No scleral icterus. No conjunctival pallor. Normocephalic, atraumatic. No pharyngeal erythema. No thyromegaly. CARDIOVASCULAR: S1 and S2 present. No murmurs, rubs, or gallops. PULMONARY: Chest is clear to auscultation, no wheezing or crackles. ABDOMEN: Soft, nontender, nondistended, normoactive bowel sounds. No palpable organomegaly. Surgical site areas appear to be clean MUSCULOSKELETAL: No joint swelling or deformity. EXTREMITIES: No cyanosis, clubbing, or pedal edema. NEUROLOGICAL: Gross neurological examination did not reveal any focal deficits. SKIN: No rashes. Assessment and Plan Plan: - acute appendicitis: Patient is status post appendectomy and Gen. surgery is not attending any antibiotics as his appendix did not rupture -Ileus appears to have improved -Coronary artery disease -Type 2 diabetes mellitus -Hypertension -Diuretic therapy neuropathy Peripheral vascular disease -Obesity Patient Condition at Discharge: Stable Plan - Discharge Summary Discharge Rx Participant: Yes New Discharge Prescriptions: New HYDROcodone/APAP 5-325MG [[place] 5-325] 1 tab PO Q6HR PRN 3 Days #10 tab PRN Reason: Pain Insulin Glargine,Hum.rec.anlog [Lantus Solostar] 45 unit SQ HS #1 insuln.pen Continue Aspirin EC [Ecotrin Low Dose] 81 mg PO DAILY Gabapentin [Neurontin] 900 mg PO TID Hydrochlorothiazide 12.5 mg PO DAILY Lisinopril [Zestril] 10 mg PO DAILY #1 tab Insulin Aspart [NovoLOG Flexpen] See Protocol SQ ACHS Clopidogrel [Plavix] 75 mg PO DAILY #90 tab Nitroglycerin Sl Tabs [Nitrostat] 0.4 mg SUBLINGUAL Q5M PRN #25 tab PRN Reason: Chest Pain Atorvastatin [Lipitor] 40 mg PO HS HYDROcodone/APAP 10-325MG [[place] 10-325] 1 tab PO Q6HR PRN PRN Reason: Pain Omeprazole [PriLOSEC] 40 mg PO AC-BRKFST #14 capsule.dr Isosorbide Mononitrate ER [Imdur] 60 mg PO DAILY tab.er.24h Metoprolol Tartrate [Lopressor] 50 mg PO BID Changed traMADol HCL [Ultram] 50 mg PO Q6HR #18 tablet Discontinued Insulin Glargine,Hum.rec.anlog [Lantus Solostar] 72 - 75 unit SQ HS Discharge Medication List Aspirin EC [Ecotrin Low Dose] 81 mg PO DAILY 07/06/15 [History] Gabapentin [Neurontin] 900 mg PO TID 06/18/16 [History] Hydrochlorothiazide 12.5 mg PO DAILY 06/18/16 [History] Lisinopril [Zestril] 10 mg PO DAILY #1 tab 06/20/16 [Rx] Insulin Aspart [NovoLOG Flexpen] See Protocol SQ ACHS 01/16/17 [History] Clopidogrel [Plavix] 75 mg PO DAILY #90 tab 01/19/17 [Rx] Nitroglycerin Sl Tabs [Nitrostat] 0.4 mg SUBLINGUAL Q5M PRN #25 tab 01/19/17 [Rx] Atorvastatin [Lipitor] 40 mg PO HS 01/10/18 [History] HYDROcodone/APAP 10-325MG [[place] 10-325] 1 tab PO Q6HR PRN 09/19/18 [History] Omeprazole [PriLOSEC] 40 mg PO [place] #14 capsule. 09/20/18 [Rx] Isosorbide Mononitrate ER [Imdur] 60 mg PO DAILY tab.er.24h 09/22/18 [Rx] Metoprolol Tartrate [Lopressor] 50 mg PO BID 01/13/19 [History] HYDROcodone/APAP 5-325MG [[place] 5-325] 1 tab PO Q6HR PRN 3 Days #10 tab 01/18/19 [Rx] Insulin Glargine,Hum.rec.anlog [Lantus Solostar] 45 unit SQ HS #1 insuln.pen 01/19/19 [Rx] traMADol HCL [Ultram] 50 mg PO Q6HR #18 tablet 01/19/19 [Rx] Follow up Appointment(s)/Referral(s): Lisandro Echeverria III, MD [Primary Care Provider] - 1 Week Elvia Lowe MD [STAFF PHYSICIAN] - 02/06/19 Patient Instructions/Handouts: Appendicitis (GEN), Laparoscopic Appendectomy (DC) Activity/Diet/Wound Care/Special Instructions: May shower. No bathtub soaks. No lifting over 10 pounds one week. May re-start Plavix 01/20/19. Diabetic, low fat diet. Discharge Disposition: HOME SELF-CARE
--- NOTE | 2019-01-23 05:45 | CDI ---
Documentation Clarification Form Date: 01/23/19 From: Jerod Griffith Phone: call to [phone] Admit Date: 01/13/2019 5:42:00 PM Patient Name: Epifanio Paez Visit Number: [id number] Discharge Date: 01/19/2019 2:03:00 PM ATTENTION: The Clinical Documentation Specialists (CDI) and [facility] Coding Staff appreciate your assistance in clarifying documentation. Please respond to the clarification below the line at the bottom and electronically sign. The CDI & [facility] Coding staff will review the response and follow-up if needed. Please note: Queries are made part of the Legal Health Record. If you have any questions, please contact the author of this message via ITS. Dr. Sedrick Strauss, The final diagnosis of the pathology report states: Benign appendix with fibrous obliteration of the distal tip and periappendiceal fat necrosis.Negative for acute appendicitis. The distal tip is focally edematous and "a possible rupture site is identified." In your professional opinion, do you agree with the pathology report specify Appendicitis as Appendicitis with rupture/perforation? Yes No Other (please specify) Unable to determine Unable to determine. not my pt MTDD
--- NOTE | 2019-01-29 00:50 | CDI ---
Documentation Clarification Form Date: 01/29/19 From: Jerod Griffith Phone: call to [phone] Admit Date: 01/13/2019 5:42:00 PM Patient Name: Epifanio Paez Visit Number: [id number] Discharge Date: 01/19/2019 2:03:00 PM ATTENTION: The Clinical Documentation Specialists (CDI) and [facility] Coding Staff appreciate your assistance in clarifying documentation. Please respond to the clarification below the line at the bottom and electronically sign. The CDI & [facility] Coding staff will review the response and follow-up if needed. Please note: Queries are made part of the Legal Health Record. If you have any questions, please contact the author of this message via ITS. Dr. Bella Espino, The final diagnosis of the pathology report states: Benign appendix with fibrous obliteration of the distal tip and periappendiceal fat necrosis.Negative for acute appendicitis. The distal tip is focally edematous and "a possible rupture site is identified. In your professional opinion, do you agree with the pathology report specify Appendicitis as Appendicitis with rupture/perforation? Yes No Other (please specify) Unable to determine _ MTDD
== END 2019-01-19 14:03 | disposition home or self-care (01) | DRG 342 ==
LOC: EC 15:02 → 4MS4W 17:42 → 4SSUR 01-18 18:16
PROVIDERS: ADMIT Internal Medicine; ATTEND Internal Medicine
PROC: 0DTJ4ZZ Resection of Appendix, Percutaneous Endoscopic Approach (ICD-10-PCS; principal; 2019-01-18 12:00)
PROC: 8E0W4CZ Robotic Assisted Procedure of Trunk Region, Percutaneous Endoscopic Approach (ICD-10-PCS; principal; 2019-01-18 12:00)
DX: K35.80 Unspecified acute appendicitis (principal); K56.7 Ileus, unspecified; Z68.41 Body mass index [BMI] 40.0-44.9, adult; Z98.42 Cataract extraction status, left eye; E11.319 Type 2 diabetes mellitus with unspecified diabetic retinopathy without macular edema; E11.40 Type 2 diabetes mellitus with diabetic neuropathy, unspecified; E11.51 Type 2 diabetes mellitus with diabetic peripheral angiopathy without gangrene; E11.65 Type 2 diabetes mellitus with hyperglycemia; E66.01 Morbid (severe) obesity due to excess calories; E78.5 Hyperlipidemia, unspecified; G47.33 Obstructive sleep apnea (adult) (pediatric); I11.0 Hypertensive heart disease with heart failure; I25.5 Ischemic cardiomyopathy; K21.9 Gastro-esophageal reflux disease without esophagitis; Z96.1 Presence of intraocular lens; I50.9 Heart failure, unspecified; M19.90 Unspecified osteoarthritis, unspecified site; I25.119 Atherosclerotic heart disease of native coronary artery with unspecified angina pectoris; I35.0 Nonrheumatic aortic (valve) stenosis; I25.2 Old myocardial infarction; Z98.890 Other specified postprocedural states; Z80.9 Family history of malignant neoplasm, unspecified; Z86.59 Personal history of other mental and behavioral disorders; Z79.02 Long term (current) use of antithrombotics/antiplatelets; Z79.4 Long term (current) use of insulin; Z79.82 Long term (current) use of aspirin; Z79.899 Other long term (current) drug therapy; Z82.49 Family history of ischemic heart disease and other diseases of the circulatory system; Z87.891 Personal history of nicotine dependence; Z83.3 Family history of diabetes mellitus; Z95.5 Presence of coronary angioplasty implant and graft; Z95.1 Presence of aortocoronary bypass graft; Z98.41 Cataract extraction status, right eye
CPT/HCPCS: 36415; 71045; 74177; 74250; 80048; 80053; 81001; 82150; 83605; 83690; 85025; 85027; 85610; 85730; 88304; 93005; 94760; 96374; 96376; 99285

== ENCOUNTER 2019-01-20 02:32 | Emergency (ER) | payer OTHER, MEDICARE ==
[2019-01-20] MEDS ORDERED: LIDOCAINE URO-JET JELLY 2% 5 ML KIT URETHRAL ONE (03:46)
--- NOTE | 2019-01-20 03:47 | ED ---
Male Urogenital HPI - General Chief complaint: Urogenital Stated complaint: Difficulty Breathing, Source: patient Mode of arrival: ambulatory Limitations: no limitations - History of Present Illness Initial comments: Heart is a 64-year-old gentleman who presents to the emergency Department today with a complaint of inability to urinate. Patient reports that he had a laparoscopic appendectomy on Monday. He reports that he was discharged from the hospital Monday afternoon. Patient reports that at the time of discharge she was able to urinate a little bit when he had bowel movements but didn't feel he was able to completely void his bladder. Since being discharged home he reports he hasn't been able to urinate more than a couple drops at a time he feels the urge to urinate but is unable to do so which prompted him come back to the ER for reevaluation. The patient also reports that he has had difficulty with urination in the past when he was admitted for cardiac evaluation and had to be catheterized at that time. He reports he has previously followed with urology but not in a number of years. - Related Data Home Medications Medication Instructions Recorded Confirmed Aspirin EC [Ecotrin Low Dose] 81 mg PO DAILY 07/06/15 01/13/19 Gabapentin [Neurontin] 900 mg PO TID 06/18/16 01/13/19 Hydrochlorothiazide 12.5 mg PO DAILY 06/18/16 01/13/19 Insulin Aspart [NovoLOG Flexpen] See Protocol SQ ACHS 01/16/17 01/13/19 Atorvastatin [Lipitor] 40 mg PO HS 01/10/18 01/13/19 HYDROcodone/APAP 10-325MG [[place] 1 tab PO Q6HR PRN 09/19/18 01/13/19 10-325] Metoprolol Tartrate [Lopressor] 50 mg PO BID 01/13/19 01/13/19 Previous Rx's Medication Instructions Recorded Lisinopril [Zestril] 10 mg PO DAILY #1 tab 06/20/16 Clopidogrel [Plavix] 75 mg PO DAILY #90 tab 01/19/17 Nitroglycerin Sl Tabs [Nitrostat] 0.4 mg SUBLINGUAL Q5M PRN #25 tab 01/19/17 Omeprazole [PriLOSEC] 40 mg PO ERIN-LENA #14 capsule. 09/20/18 Isosorbide Mononitrate ER [Imdur] 60 mg PO DAILY tab.er.24h 09/22/18 HYDROcodone/APAP 5-325MG [[place] 1 tab PO Q6HR PRN 3 Days #10 tab 01/18/19 5-325] Insulin Glargine,Hum.rec.anlog 45 unit SQ HS #1 insuln.pen 01/19/19 [Lantus Solostar] traMADol HCL [Ultram] 50 mg PO Q6HR #18 tablet 01/19/19 Allergies Allergy/AdvReac Type Severity Reaction Status Date / Time No Known Allergies Allergy Verified 01/20/19 02:48 Review of Systems ROS Statement: Those systems with pertinent positive or pertinent negative responses have been documented in the HPI. ROS Other: All systems not noted in ROS Statement are negative. Past Medical History Past Medical History: Coronary Artery Disease (CAD), Chest Pain / Angina, Heart Failure, Diabetes Mellitus, Eye Disorder, Hyperlipidemia, Hypertension, Myocardial Infarction (ID), Osteoarthritis (OA), Vascular Disorder Additional Past Medical History / Comment(s): IDDM type II, neuropathy bilateral feet, retinal damage R eye with blurred vision and occasional eye pain, PAD, arthritis in multiple joints, spinal stenosis/herniated discs/DDD low back with chronic pain, anemia, post op pleural effusions with thoracentesis. 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 Past Anesthesia/Blood Transfusion Reactions: No Reported Reaction Additional Past Anesthesia/Blood Transfusion Reaction / Comment(s): CLAUSTROPHOBIA-difficulty with MRI Date of Last Stent Placement:: 01/18/2017 Past Psychological History: No Psychological Hx Reported Smoking Status: Former smoker Past Alcohol Use History: Occasional Past Drug Use History: None Reported - Past Family History Brother(s) Family Medical History: Cancer Father Family Medical History: Coronary Artery Disease (CAD), Diabetes Mellitus Additional Family Medical History / Comment(s): CABG. Father in his 80s Mother Family Medical History: Coronary Artery Disease (CAD), Diabetes Mellitus Additional Family Medical History / Comment(s): CABG. Mother in her 80s General Exam - General Exam Comments Initial Comments: Physical Exam GENERAL: Appears uncomfortable HENT: Normocephalic, Atraumatic. EYES: PERRL, EOMI PULMONARY: Mild expiratory wheezing patient reports this is his baseline CARDIOVASCULAR: There is a regular rate and rhythm without any murmurs gallops or rubs. Warm and well perfused extremities ABDOMEN: Soft and nontender with normal bowel sounds. Bedside ultrasound reveals a distended bladder SKIN: Skin is clear with no lesions or rashes and otherwise unremarkable. Well-healing laparoscopic surgical incisions on the abdomen with no surrounding erythema no drainage no signs of infection or dehiscence : Normal external genitalia NEUROLOGIC: Patient is alert and oriented x3. Moving all extremities spontaneously MUSCULOSKELETAL: Normal extremities with adequate strength and full range of motion. No lower extremity swelling or edema. No calf tenderness. PSYCHIATRIC: Situational anxiety and agitation Limitations: no limitations Course Vital Signs 01/20/19 02:45 Temperature 100.6 F H Pulse Rate 76 Respiratory 20 Rate Blood Pressure 140/71 O2 Sat by Pulse 92 L Oximetry Medical Decision Making - Medical Decision Making The patient was seen and evaluated history is obtained from the patient and signed patient has been unable to urinate for greater than 12 hours at this time he is having some lower abdominal discomfort, bedside ultrasound does reveal a very distended bladder, Avina catheter was placed and greater than a liter of dark karlie urine was drained. After 1 L was drained the Avina catheter was clamped. Patient did report some relief after Avina catheter placement. Urinalysis revealed no signs of urinary tract infection. S with the patient the plan for discharge home with a Avina catheter and leg bag. Patient was very upset by this. I did offer the patient observation for further management and likely they spent the half-way facility if he doesn't feel he is able to care for himself in the postop period. Patient states that he would not like to remain in the hospital and would prefer to be discharged home though he does not like the Avina catheter. Advised him contact his primary care physician as well as urology on Monday for follow-up to schedule removal of catheter. All questions pertaining to care were answered to the best of my ability return parameters were discussed the patient was discharged home in stable condition. - Lab Data Lab Results 01/20/19 Range/Units 04:00 Urine Color Yellow Urine Appearance Clear (Clear) Urine pH 5.5 (5.0-8.0) Ur Specific [place] 1.020 (1.001-1.035) Urine Protein Trace H (Negative) Urine Glucose (UA) 2+ H (Negative) Urine Ketones Trace H (Negative) Urine Blood Trace H (Negative) Urine Nitrite Negative (Negative) Urine Bilirubin Negative (Negative) Urine Urobilinogen <2.0 (<2.0) mg/dL Ur Leukocyte Esterase Negative (Negative) Urine RBC 10 H (0-5) /hpf Urine WBC 1 (0-5) /hpf Urine Mucus Rare H (None) /hpf Disposition Clinical Impression: Urinary retention Disposition: HOME SELF-CARE Condition: Stable Instructions (If sedation given, give patient instructions): Avina Catheter Placement and Care (ED) Is patient prescribed a controlled substance at d/c from ED?: No Referrals: Lisandro Echeverria III, MD [Primary Care Provider] - 1-2 days Jean Trimble MD [STAFF PHYSICIAN] - 1-2 days
[2019-01-20 04:06] LABS: Appearance,Urine Clear (Clear); Bilirubin,Urine Negative (Negative); Blood,Urine Trace (Negative); Color,Urine Yellow; Glucose,Urine (UA) 2+ (Negative); Ketones,Urine Trace (Negative); Leukocyte Esterase,Urine Negative (Negative); Mucus,Urine Rare /hpf; Nitrite,Urine Negative (Negative); PH, Urine 5.5 (5.0-8.0); Protein,Urine Trace (Negative); RBC,Urine 10 /hpf (0-5); Urobilinogen,Urine <2.0 mg/dL (<2.0)
[2019-01-20 05:52] VITALS: BP 180/75; PULSE 88; RESP 16; TEMP 98.7
== END 2019-01-20 05:52 | disposition home or self-care (01) ==
LOC: EC 02:32
DX: R33.9 Retention of urine, unspecified (principal); F41.9 Anxiety disorder, unspecified; R45.1 Restlessness and agitation; I25.119 Atherosclerotic heart disease of native coronary artery with unspecified angina pectoris; I11.0 Hypertensive heart disease with heart failure; I50.9 Heart failure, unspecified; I25.2 Old myocardial infarction; E78.5 Hyperlipidemia, unspecified; M19.90 Unspecified osteoarthritis, unspecified site; E11.40 Type 2 diabetes mellitus with diabetic neuropathy, unspecified; Z87.891 Personal history of nicotine dependence; Z79.82 Long term (current) use of aspirin; Z79.4 Long term (current) use of insulin; Z79.899 Other long term (current) drug therapy; Z95.1 Presence of aortocoronary bypass graft; Z95.5 Presence of coronary angioplasty implant and graft; Z82.49 Family history of ischemic heart disease and other diseases of the circulatory system
CPT/HCPCS: 51702; 81001; 99285

== ENCOUNTER 2019-03-06 07:47 | Day surgery (SDC) | payer MEDICARE, OTHER ==
[2019-03-05 11:22] VITALS: BMI 42.0
[~2019-03-06 07:47] MED LIST changes: -ALPRAZolam 0.25 MG TAB PO PRN; -ASPIRIN 325 MG TAB PO STA; +LACTATED RINGERS 1,000 ML IV SCH; +LIDOCAINE 1% 20 ML VIAL (10MG/ML) FOR IV START INTRADERMA PRN; -SODIUM CHLORIDE 0.9% 1,000 ML in EMPTY BAG 1 BAG IV ONE
--- NOTE | 2019-03-06 07:53 | P.GSHP ---
History of Present Illness H&P Date: 03/06/19 CHIEF COMPLAINT: GERD and colon screen HISTORY OF PRESENT ILLNESS: The patient is a 64-year-old male who presents with gastroesophageal reflux disease and need for colon screen. Upper and lower endoscopy were offered for further evaluation and management. PAST MEDICAL HISTORY: Please see list. PAST SURGICAL HISTORY: Please see list. MEDICATIONS: Please see list. ALLERGIES: Please see list. SOCIAL HISTORY: No illicit drug use FAMILY HISTORY: No reports of Crohn disease or ulcerative colitis. REVIEW OF ORGAN SYSTEMS: CONSTITUTIONAL: No reports of fevers or chills. GI: Denies any blood in stools or constipation. PHYSICAL EXAM: VITAL SIGNS: Stable GENERAL: Well-developed pleasant in no acute distress. HEENT: No scleral icterus. Extraocular movements grossly intact. Moist buccal mucosa. NECK: Supple without lymphadenopathy. CHEST: Unlabored respirations. Equal bilateral excursions. CARDIOVASCULAR: Regular rate and rhythm. Distal 2+ pulses. ABDOMEN: Soft, nondistended. MUSCULOSKELETAL: No clubbing, cyanosis, or edema. ASSESSMENT: 1. Gastroesophageal reflux disease 2. Colon screen. PLAN: 1. Recommend proceeding with an upper and lower endoscopy Past Medical History Past Medical History: Coronary Artery Disease (CAD), Chest Pain / Angina, Heart Failure, Diabetes Mellitus, Eye Disorder, Hyperlipidemia, Hypertension, Myocardial Infarction (SD), Osteoarthritis (OA), Vascular Disorder Additional Past Medical History / Comment(s): IDDM type II, neuropathy bilateral feet, retinal damage R eye with blurred vision and occasional eye pain, PAD, arthritis in multiple joints, spinal stenosis/herniated discs/DDD low back with chronic pain, anemia, post op pleural effusions with thoracentesis. 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 Past Anesthesia/Blood Transfusion Reactions: No Reported Reaction, Motion Sickness Additional Past Anesthesia/Blood Transfusion Reaction / Comment(s): CLAUSTROPHOBIA-difficulty with MRI Date of Last Stent Placement:: 01/18/2017 Smoking Status: Former smoker - Past Family History Brother(s) Family Medical History: Cancer Father Family Medical History: Coronary Artery Disease (CAD), Diabetes Mellitus Additional Family Medical History / Comment(s): CABG. Father in his 80s Mother Family Medical History: Coronary Artery Disease (CAD), Diabetes Mellitus Additional Family Medical History / Comment(s): CABG. Mother in her 80s Medications and Allergies Home Medications Medication Instructions Recorded Confirmed Type Aspirin EC [Ecotrin Low Dose] 81 mg PO DAILY 07/06/15 03/05/19 History Gabapentin [Neurontin] 900 mg PO TID 06/18/16 03/05/19 History Hydrochlorothiazide 12.5 mg PO DAILY 06/18/16 03/05/19 History Lisinopril [Zestril] 10 mg PO DAILY #1 tab 06/20/16 03/05/19 Rx Insulin Aspart [NovoLOG Flexpen] See Protocol SQ ACHS 01/16/17 03/05/19 History Clopidogrel [Plavix] 75 mg PO DAILY #90 tab 01/19/17 03/05/19 Rx Nitroglycerin Sl Tabs [Nitrostat] 0.4 mg SUBLINGUAL Q5M PRN #25 tab 01/19/17 03/05/19 Rx Atorvastatin [Lipitor] 40 mg PO HS 01/10/18 03/05/19 History HYDROcodone/APAP 10-325MG [[place] 1 tab PO Q6HR PRN 09/19/18 03/05/19 History 10-325] Omeprazole [PriLOSEC] 40 mg PO AC-BRKFST #14 capsule.dr 09/20/18 03/05/19 Rx Isosorbide Mononitrate ER [Imdur] 60 mg PO DAILY tab.er.24h 09/22/18 03/05/19 Rx Metoprolol Tartrate [Lopressor] 50 mg PO BID 01/13/19 03/05/19 History Insulin Glargine,Hum.rec.anlog 70 unit SQ HS 03/05/19 03/05/19 History [Lantus Solostar] Allergies Allergy/AdvReac Type Severity Reaction Status Date / Time No Known Allergies Allergy Verified 03/05/19 11:07
[2019-03-06 08:04] VITALS: TEMP 96.9
[2019-03-06 08:11] LABS: Glucose,Whole Blood 145 mg/dL (75-99)
[2019-03-06] MEDS ORDERED: PROPOFOL 10 MG/ML 20 ML VIAL IV ONE (08:22)
[2019-03-06] MEDS ORDERED: fentaNYL (PF) 50 MCG/ML 2 ML AMP ONE (08:22)
[2019-03-06] MEDS ORDERED: LIDOCAINE 1% INJ 10MG/ML (20 ML MDV) ONE (08:22)
--- NOTE | 2019-03-06 08:45 | P.PCN ---
Date of Procedure: 03/06/19 Description of Procedure: PREOPERATIVE DIAGNOSIS: Gastroesophageal reflux disease. Atypical chest pain POSTOPERATIVE DIAGNOSIS: Gastroesophageal reflux disease. Atypical chest pain Gastric polyp at antrum Bile reflux OPERATION: Esophagogastroduodenoscopy with snare polypectomy along antrum. SURGEON: Elvia Lowe MD ANESTHESIA: MAC. INDICATIONS: The patient is a 64-year-old male who presents with a history of reflux disease. Benefits and risks of the procedure were described. Informed consent was obtained. DESCRIPTION: The patient was brought into the endoscopy suite and laid in the left lateral decubitus position. An Olympus gastroscope was passed along the posterior oropharynx down to the distal esophagus where the squamocolumnar junction was encountered at 45 cm from the incisors. Additionally tertiary contractions were identified The stomach was entered and moderate bile reflux was found. Additional findings are listed below. Biopsies with cold forceps were obtained of the antrum. The first through third portion of the duodenum was examined and unremarkable. Retroflexion of the scope confirmed Hill grade 3 lower esophageal valve. The squamocolumnar junction demonstrated LA grade B erosive esophagitis. The stomach was desufflated. The patient tolerated the procedure well. FINDINGS: Squamocolumnar junction 45 cm from the incisors. Diaphragmatic hiatus at 45 cm. Moderate bile reflux Tertiary contractions along the esophagus Hill grade 3 lower esophageal valve. LA grade B erosive esophagitis. No active duodenitis. Large gastric polyps over 8 mm with snare polypectomy RECOMMENDATIONS: Upper endoscopy as needed.
[2019-03-06 09:53] VITALS: BP 112/64; PULSE 66; RESP 18
[2019-03-06 09:58] LABS: Glucose,Whole Blood 145 mg/dL (75-99)
--- NOTE | 2019-03-06 09:58 | P.PCN ---
Date of Procedure: 03/06/19 Description of Procedure: PREOPERATIVE DIAGNOSIS: Colonoscopy screening, first POSTOPERATIVE DIAGNOSIS: Colonoscopy screening, first Multiple tubular adenomas throughout the colon. Sigmoid diverticulosis OPERATION: Colonoscopy to the ileocecal valve and appendiceal orifice. Colonoscopy with multiple hot snare polypectomies, over 35+ polyps Colonoscopy with multiple cold forceps biopsies, over 5 polyps SURGEON: Elvia Lowe MD. ANESTHESIA: MAC. INDICATIONS: The patient is a 64-year-old male who presents for his first colonoscopy screening. Benefits and risks were described and informed consent was obtained. DESCRIPTION OF PROCEDURE: The patient had undergone Suprep. He had been brought into the operating room and laid in the left lateral decubitus position. After adequate intravenous sedation, the rectum was examined with 2% lidocaine jelly. The prostatic fossa was unremarkable. No external hemorrhoids were encountered. The rectal tone was within normal limits. No lesions were palpated in the rectal vault. An Olympus colonoscope was advanced until the ileocecal valve and appendiceal orifice were clearly viewed. The prep was excellent with visualization of the mucosal folds. The scope was removed with visualization of each mucosal fold. Sigmoid scattered diverticulosis was encountered. Multiple colonic polyps were found and cold forcep biopsy or snare polypectomy. No evidence of focal colitis was found. Retroflexion of the scope demonstrated grade 1 internal hemorrhoids without active bleeding or inflammation. The colon was desufflated. The patient had tolerated the procedure well. Withdrawal time was over 65 minutes. FINDINGS: Aronchick preparation quality scale 1 (1-5) Internal hemorrhoids, grade 1 No external hemorrhoids Sigmoid diverticulosis with redundancy No arteriovenous malformations. Removal of 36 polyps from the ascending, hepatic flexure, proximal, mid transverse colon and descending colon: - Snare polypectomy from ascending colon, 5 - 14 mm tubulovillous adenoma polyps x 10 - Snare polypectomy from hepatic flexure, 8 mm flat villous adenoma polyp x 6 - Snare polypectomy from transverse colon, 4 to 15 mm flat villous adenoma polyps x 12 - Snare polypectomy from descending colon, 5 to 10 mm flat villous adenoma polyps x 5 - Cold forceps biopsy at mid transverse colon, 5 mm polyp. - Cold forceps biopsy at distal transverse colon, 4 mm polyp. No focal colitis. RECOMMENDATIONS: Given severity of tubular adenomas, recommend repeat colonoscopy year, 2019 Plan - Discharge Summary Discharge Rx Participant: No New Discharge Prescriptions: No Action Aspirin EC [Ecotrin Low Dose] 81 mg PO DAILY Gabapentin [Neurontin] 900 mg PO TID Hydrochlorothiazide 12.5 mg PO DAILY Lisinopril [Zestril] 10 mg PO DAILY #1 tab Insulin Aspart [NovoLOG Flexpen] See Protocol SQ ACHS Clopidogrel [Plavix] 75 mg PO DAILY #90 tab Nitroglycerin Sl Tabs [Nitrostat] 0.4 mg SUBLINGUAL Q5M PRN #25 tab PRN Reason: Chest Pain Atorvastatin [Lipitor] 40 mg PO HS HYDROcodone/APAP 10-325MG [[place] 10-325] 1 tab PO Q6HR PRN PRN Reason: Pain Omeprazole [PriLOSEC] 40 mg PO AC-BRKFST #14 capsule. Isosorbide Mononitrate ER [Imdur] 60 mg PO DAILY tab.er.24h Metoprolol Tartrate [Lopressor] 50 mg PO BID Insulin Glargine,Hum.rec.anlog [Lantus Solostar] 70 unit SQ HS Discharge Medication List Aspirin EC [Ecotrin Low Dose] 81 mg PO DAILY 07/06/15 [History] Gabapentin [Neurontin] 900 mg PO TID 06/18/16 [History] Hydrochlorothiazide 12.5 mg PO DAILY 06/18/16 [History] Lisinopril [Zestril] 10 mg PO DAILY #1 tab 06/20/16 [Rx] Insulin Aspart [NovoLOG Flexpen] See Protocol SQ ACHS 01/16/17 [History] Clopidogrel [Plavix] 75 mg PO DAILY #90 tab 01/19/17 [Rx] Nitroglycerin Sl Tabs [Nitrostat] 0.4 mg SUBLINGUAL Q5M PRN #25 tab 01/19/17 [Rx] Atorvastatin [Lipitor] 40 mg PO HS 01/10/18 [History] HYDROcodone/APAP 10-325MG [[place] 10-325] 1 tab PO Q6HR PRN 09/19/18 [History] Omeprazole [PriLOSEC] 40 mg PO AC-BRKFST #14 capsule. 09/20/18 [Rx] Isosorbide Mononitrate ER [Imdur] 60 mg PO DAILY tab.er.24h 09/22/18 [Rx] Metoprolol Tartrate [Lopressor] 50 mg PO BID 01/13/19 [History] Insulin Glargine,Hum.rec.anlog [Lantus Solostar] 70 unit SQ HS 03/05/19 [History] Follow up Appointment(s)/Referral(s): Elvia Lowe MD [STAFF PHYSICIAN] - 03/19/19 Patient Instructions/Handouts: Colorectal Polyps (DC), Diverticulitis Diet (GEN), Diverticulosis (DC) Activity/Diet/Wound Care/Special Instructions: Repeat in 1 year, 2019 Discharge Disposition: HOME SELF-CARE
== END 2019-03-06 10:25 | disposition home or self-care (01) ==
LOC: ORWHC2ENDO 07:47
PROVIDERS: ATTEND Surgery Plastic and Reconstructive Surgery
DX: D12.2 Benign neoplasm of ascending colon (principal); D12.0 Benign neoplasm of cecum; D12.3 Benign neoplasm of transverse colon; K63.5 Polyp of colon; K57.30 Diverticulosis of large intestine without perforation or abscess without bleeding; K64.0 First degree hemorrhoids; Q43.9 Congenital malformation of intestine, unspecified; R19.5 Other fecal abnormalities; K31.7 Polyp of stomach and duodenum; K21.0 Gastro-esophageal reflux disease with esophagitis; R07.89 Other chest pain; I25.10 Atherosclerotic heart disease of native coronary artery without angina pectoris; I11.0 Hypertensive heart disease with heart failure; I50.9 Heart failure, unspecified; E11.42 Type 2 diabetes mellitus with diabetic polyneuropathy; E11.51 Type 2 diabetes mellitus with diabetic peripheral angiopathy without gangrene; E78.5 Hyperlipidemia, unspecified; I25.2 Old myocardial infarction; M15.9 Polyosteoarthritis, unspecified; M48.00 Spinal stenosis, site unspecified; G89.29 Other chronic pain; F40.240 Claustrophobia; Z79.02 Long term (current) use of antithrombotics/antiplatelets; Z79.82 Long term (current) use of aspirin; Z79.4 Long term (current) use of insulin; Z79.891 Long term (current) use of opiate analgesic; Z79.899 Other long term (current) drug therapy; Z90.49 Acquired absence of other specified parts of digestive tract; Z90.89 Acquired absence of other organs; Z95.1 Presence of aortocoronary bypass graft; Z95.5 Presence of coronary angioplasty implant and graft; Z95.820 Peripheral vascular angioplasty status with implants and grafts; Z98.890 Other specified postprocedural states; Z98.49 Cataract extraction status, unspecified eye; Z96.1 Presence of intraocular lens; Z86.2 Personal history of diseases of the blood and blood-forming organs and certain disorders involving the immune mechanism; Z87.891 Personal history of nicotine dependence; Z80.9 Family history of malignant neoplasm, unspecified; Z82.49 Family history of ischemic heart disease and other diseases of the circulatory system; Z83.3 Family history of diabetes mellitus
CPT/HCPCS: 45380; 45385; 43251; 88305; J2001; J3010; J2704